=== PATIENT | female | born 1935 | race Caucasian/White ===

== ENCOUNTER 2024-02-02 09:18 | Day surgery (SDC) | payer OTHER, SELFPAY ==
[2024-02-02] VITALS (19 sets, daily range): BP systolic 89–163; BP diastolic 49–92
[2024-02-02] MEDS: NSS 259 ML IV (10:12)
[2024-02-02] MEDS: LOW STRENGTH ASPIRIN 324 MG PO (10:13)
[2024-02-02 12:04] LABS: ACT-LR - POC 263 Seconds (116-155)
[2024-02-02 12:16] LABS: ACT-LR - POC 395 Seconds (116-155)
[2024-02-02 12:41] LABS: ACT-LR - POC 263 Seconds (116-155)
[2024-02-02] MEDS: NSS 1000 IV (13:21)
--- NOTE | 2024-02-02 14:33 | PTCARENOTE ---
Pt was transferred to IVU on stretcher/monitor/O2 @ 2 LPM. Report to Verónica ARROYO. All personal effects with pt at this time
--- NOTE | 2024-02-02 15:12 | CONSULT.STRU ---
Consultation
-
Date/Time Consultation Requested: 02/02/2024 1230
Date/Time Consultation Performed: 02/02/2024 1300
Requesting Provider: Dr. Kimber Méndez
Performing Provider: LEESA Zhu
Reason for Consultation: Aortic stenosis/ TAVR evaluation
Patient History
Physicians
Family Physician: Dr. Christophe Acosta
Outpatient Food Safety Director: Dr. Yusef Spangler
Primary Food Safety Director: Dr. Yusef Spangler
History of Present Illness
Patient is a very pleasant 88yo female with known history aortic stenosis. Last year she underwent surgery for a rectovaginal fistula and was slow to recover. She is now ambulating independently with a walker and living with her son in an in-law
suite. She has noted increased fatigue and more mata over the last couple months. She has started using two pillows to prop up on for sleep. She denies PND, chest pain, palpitations. She does have a known history of atrial tachycardia. She has noted
occasional edema in her left ankle. She present today for cardiac cath as part of her evaluation for TAVR. Her most recent echocardiogram on 01/12/2024 was notable for AV PG/M.4/54.6, EF 55-60%. Today she underwent PCI of her RCA.
Reviewed the pathophysiology of aortic stenosis with the patient. Explained the treatment options of SAVR and TAVR. Explained the TAVR evaluation process including follow up BMP, CT TAVR scan, CT surgery consult and Heart Team discussion. Provided
with script for BMP next week, script and appointment for CT TAVR, Consult appointment with Dr. Middleton and a copy of the TAVR education booklet with contact information. Allowed for and answered questions.
Past Medical History
Past Medical History: Arrhythmias (paroxysmal atrial tachycardia), CAD, MATA, HTN, Hypercholesterolemia and Other (morbid obesity, spinal stenosis, h/o melanoma, arthritis, h/o recto-vaginal fistula, diverticular disease, osteoarthritis-should,
ankle, knees )
Past Surgical History
Past Surgical History: Abdominal (hernia repair), Hysterectomy, Orthopedic (bilateral TKR, carpel tunnel surgery), PCI/Stent (RCA 02/02/2024) and Other (Melanoma excision, lap sigmoidectomy, repair of recto-vaginal fistula, sinus surgery, cataract
surgery)
Dental History
Regular dental care every 6 months - Dr. Lexy Stewart
Family History
Mother: at Age (93)
Father: at Age (56) and Cause of (metastatic cancer)
Social History
Alcohol: None
Drug: None
Tobacco: Non-Smoker
Personal:
Living: With Family (Lives with son in an in-law suite)
Allergies
Allergy/AdvReac Type Severity Reaction Status Date / Time
albuterol Allergy Severe Pharmacy Verified 02/02/24 07:57
to Review
amitriptyline Allergy Severe Pharmacy Verified 02/02/24 07:57
to Review
gabapentin Allergy Severe Pharmacy Verified 02/02/24 07:57
to Review
Penicillins Allergy Intermediate Hives Verified 02/02/24 07:57
Home Medications
�Medication �Instructions �Recorded �Confirmed �Type
Saccharomyces boulardii 250 mg 250 mg PO BID 02/02/24 02/02/24 History
capsule
acetaminophen 500 mg tablet 1,000 mg PO Q6H PRN neuropathy 02/02/24 02/02/24 History
ascorbic acid (vitamin C) 500 mg 500 mg PO DAILY 02/02/24 02/02/24 History
tablet (Vitamin C)
calcium carbonate 600 mg-vitamin 1 tab PO DAILY 02/02/24 02/02/24 History
D3 5 mcg (200 unit) tablet
cranberry fruit concentrate 250 mg 250 mg PO TID 02/02/24 02/02/24 History
chewable tablet
diltiazem HCl 180 mg 180 mg PO DAILY 02/02/24 02/02/24 History
capsule,extended release 24 hr,
controlled
mecobalamin (vitamin B12) 500 mcg 500 mcg PO DAILY 02/02/24 02/02/24 History
chewable tablet
multivitamin 1 tab PO DAILY 02/02/24 02/02/24 History
olive leaf extract 250 mg capsule 250 mg PO DAILY 02/02/24 02/02/24 History
omega-3 964 mg-dha 257 mg-epa 643 1 cap PO DAILY 02/02/24 02/02/24 History
mg-fish oil 1.286 gram capsule
oregano oil 1,500 mg capsule 1,500 mg PO DAILY 02/02/24 02/02/24 History
psyllium husk 0.52 gram capsule 0.52 g PO DAILY 02/02/24 02/02/24 History
vibegron 75 mg tablet (Gemtesa) 75 mg PO DAILY 02/02/24 02/02/24 History
STS%
STS %: 13%
Review of Systems
-
History Source: Patient
General: Reports Fatigue
HEENT: Reports No Symptoms
Respiratory: Reports MATA and Other (2 pillow orthopnea over last few weeks); Denies PND
Cardiac: Reports Edema (occasional left leg, r/t prior TKR); Denies Chest Pain or Palpitations
Abdomen/GI: Denies Abdominal Pain, Nausea, Vomiting or Diarrhea
: Reports No Symptoms; Denies Urgency, Frequency or Hematuria
Musculoskeletal: Reports Edema (left ankle)
Skin: Denies No Symptoms
Neurological: Denies CVA, TIA, Headaches, Syncope or Dizzy
Vascular: Reports No Symptoms
Physical Exam
Vital Signs
Temp 97.6 F 02/02/24 14:31
Temp route: Oral 02/02/24 14:31
Pulse 61 02/02/24 14:31
Rhythm: Normal sinus rhythm 02/02/24 14:36
With- Left Bundle Branch Block 02/02/24 14:36
Resp Rate 18 02/02/24 14:31
Blood pressure 114/75 02/02/24 14:31
Blood pressure extremity used: Left upper arm 02/02/24 14:31
Position: Lying 02/02/24 14:31
MAP (cuff-Sylvie Monitor) 85 02/02/24 14:31
SaO2 99 02/02/24 14:36
Nasal Cannula flow liters per minute 2 02/02/24 14:36
Oxygen Mode of Delivery Room air 02/02/24 12:48
Can the patient verbally communicate their pain? Yes 02/02/24 14:36
Actual Weight 86.2 kg 02/02/24 07:53
Body Mass Index (BMI) 0.0 02/02/24 10:12
Labs
01/25/2024:
H/H: 14.1/40
[id number]
BUN/Creat: 23/0.91
GFR: 60
Diagnostic Studies
01/12/2024 Echocardiogram at [facility]:
Moderate LVH, EF 55-60%
Aortic Valve: peak velocity 4.88m/s. PG/M.4/54.6, mild AI
Mild TR
01/19/2024 EKG at [facility]:
SR with PACs and left BBB
Exam
General: Well Developed, Well Nourished, No Apparent Distress and Comfortable
HEENT: Moist Mucous Membranes
Neck: Trachea Midline
Respiratory: Clear; Negative Wheezes, Crackles or Rhonchi
Cardiac: S1/S2, Regular Rhythm and Murmur (Grade III/)
GI: Soft, Non Tender, Non Distended and Normal Bowel Sounds
Rectal: Deferred by Provider
Skin: Warm and Dry
Neuro: AO x 3
Extremities: Lower Level Edema (left ankle +1) and Pulses (+2 bilateral pedal pulses)
Lymph: No Lymphadenopathy
Psych: Calm
Assessment / Plan
-
Procedure Type:�Isolated AVR
PERIOPERATIVE OUTCOME ESTIMATE %
Operative Mortality 13%
Morbidity & Mortality 21.2%
Stroke 1.54%
Renal Failure 6.44%
Reoperation 4.54%
Prolonged Ventilation 14%
Deep Sternal Wound Infection 0.109%
Long Hospital Stay (>14 days) 13.3%
Short Hospital Stay (<6 days)* 13.8%
Severe Aortic stenosis:
��������������� Continue evaluation for TAVR
��������������� BMP 02/09/2024 at [facility]
��������������� CT TAVR scan 02/15/2024 0930 at
��������������� CT surgery consult with Dr. Middleton 02/15/2024
��������������� Heart team discussion at [facility]
Dental Clearance
Data Reviewed
-
EKG: Report Reviewed by me
Gas Plumbing Inspector: Discussed with Physician
Echo: Report Reviewed by me
Labs: Labs Reviewed by me
Old Records: Reviewed (Dr. Spangler office consult )
--- NOTE | 2024-02-02 15:35 | PTCARENOTE ---
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 patient is [place], has bialt hearing aids, wears glasses. patient on monitor NSR with LBBBC. VSS. patient is sleepy and stated, 'This is my nap
time'.
--- NOTE | 2024-02-02 15:42 | ITS.CL.CATH ---
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
Cardiac Catheterization
Procedure Report:
LEFT HEART CATHETERIZATION
Date of Procedure: February 02, 2024
Procedures performed:
1: Coronary angiography
2: Left ventricular hemodynamic assessment
3: Percutaneous coronary invention of the right coronary artery with placement of a 4.0 x 18 millimeter Xience drug-eluting stent postdilated with a 5.0 mm balloon inflated to 12 juliann.
Primary Care Physician: Dr. Christophe Mejia
Primary Sewing Line Baler: Dr. Yusef Spangler
INDICATION: The patient is a 88-year-old woman with a complex past medical history including obesity, hypertension, and mobility issues related to spinal stenosis. She has been followed by Dr. Spangler with severe aortic stenosis and was previously
felt to be a poor candidate for any intervention. She has been recovering from a rectovaginal fistula surgery last year and has become stronger now ambulating independently with a walker. She is referred for TAVR evaluation with mean gradient of
54 mmHg across her aortic valve by recent echo with preserved LV systolic function. The patient also has paroxysmal atrial tachycardia with no clear documented atrial fibrillation. Of note she has a left bundle branch block.
ACCESS: The patient was prepped and draped in usual sterile fashion. A 6 [place]an sheath was placed in the right radial artery using the Seldinger over the wire technique.
HEMODYNAMIC FINDINGS (mmHg):
LV(s/d,EDP): 203/16, 27
Ao(s/d,m): 123/72, 89
Mean gradient on pullback: 59 mmHg
ANGIOGRAPHIC FINDINGS:
Single-plane Left Ventriculography in PRUITT Projection: Not done. Preserved LV ejection fraction visually estimated at 55 to 60% on recent echo January 12, 2024.
Coronary Angiography:
Dominance: Right
Left Main: Medium caliber, normal.
Left Anterior Descending: The left anterior descending artery is a relatively large caliber vessel that is widely patent with no flow-limiting disease. The LAD gives rise to 2 medium caliber vessels that have diffuse moderate luminal irregularities
with normal flow and no focal obstructive disease. The second diagonal has a smooth mid 40% stenosis prior to bifurcating into 2 relatively large branches.
Left Circumflex: The left circumflex is a relatively small nondominant vessel that gives rise to 1 medium caliber obtuse marginal branch that is widely patent.
Right Coronary: The right coronary artery is a huge dominant vessel that gives rise to a large caliber posterior descending artery and posterior left ventricular branch system. There is a proximal ulcerated 70% stenosis. The remainder of the
vessel has only mild luminal irregularities with normal flow.
Percutaneous Coronary Intervention (PCI): In light of the above angiographic findings and the anticipated transcatheter aortic valve intervention, I elected to perform PCI. This was a very large vessel supplying a large territory and I did not feel
with her advanced age and comorbidities she was a reasonable surgical candidate. The patient was pretreated with aspirin. Unfractionated heparin was given. A loading dose of clopidogrel 600 mg was given on the table at the end of the procedure.
A 6 [place] JR4 guiding catheter was used to engage the right coronary artery. A Hi-Torque floppy wire was easily advanced across the lesion. Predilation was performed with a 3.0 mm diameter balloon. Next a 4.0 x 18 mm Xience drug-eluting stent
was deployed. Attempts to pass a 5.5 mm noncompliant balloon to post dilate were unsuccessful despite facilitating delivery with a 6 [place]an Guideliner. Ultimately a 5 mm compliant balloon was used to post dilate the stent at 12 juliann. This was done
in a distal to proximal fashion taking care to stay within the stented margins.
FINAL RESULT: 0% in-stent residual stenosis with a good angiographic result and MARIO-3 flow in all vessels
Fluoroscopy Time (min): 14
Radiation Dose (mGy): 870
DAP (Gy.cm2): 77
Closure device: None. A TR band was applied for hemostasis at the right wrist.
Complications: None.
ASSESSMENT:
1: Successful PCI of the right coronary artery with placement of drug-eluting stent as described above.
2: Severe aortic valvular stenosis
CONCLUSIONS and RECOMMENDATIONS:
1: Routine post drug-eluting stent medical therapy and monitoring with dual antiplatelet therapy and aspirin daily indefinitely.
2: Proceed with TAVR evaluation.
3: Of note, during the procedure the patient did have short episodes of atrial arrhythmia followed by relative bradycardia. 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
consideration of pacer placement. She has no clear clinical symptoms for pacer placement at this point.
Kimber Méndez M.D.
Copy to: Dr. Christophe Mejia
--- NOTE | 2024-02-02 15:46 | CM ---
CM following for DC planning needs.
Met w/ patient at bedside to complete initial assessment.
Pt. resides alone in an apartment-in law suite on son's property. Functionally, patient is indep. at baseline w/ ADLs and mobility using a RW.
Pt. has Rx plan and uses [facility] in [place] for prescription needs.
Anticipated DC plan is for home, no needs.
CM to follow.
[2024-02-02] MEDS: LIPITOR 10 MG PO (17:40)
--- NOTE | 2024-02-02 21:53 | PTCARENOTE ---
pt pleasant and cooperative. requesting purewick to be removed. pt assisted oob to bedside commode with assist of one. voided 400 ml clear yellow urine without difficulty. pt back to bed. denies pain or discomfort. mild sob with exertion. o2 sat=93%
on room air. right radial dressing dry and intact. pt in no acute distress.
[2024-02-03 03:22] VITALS: BP 135/71
[2024-02-03 04:08] LABS: Hematocrit 36.2 % (37.0-47.0); Hemoglobin 13.5 g/dL (12.0-16.0); Mean Corp Hgb Conc. 37.3 g/dL (33.0-37.0); Mean Corpuscular Hgb 33.8 pg (27.0-31.0); Mean Corpuscular Volume 90.5 fL (81.0-99.0); Mean Platelet Volume 11.1 fL (7.4-10.4); Platelet Count 158 10^3/uL (130-400); Red Cell Dist. Width 12.7 % (11.5-14.5); White Blood Cell Count 9.9 10^3/uL (4.8-10.8)
[2024-02-03 04:34] LABS: Blood Urea Nitrogen 21 mg/dl (7-17); Calcium 9.3 mg/dl (8.4-10.2); Carbon Dioxide 24 mmol/L (22-30); Chloride 104 mmol/L (98-107); Estimated Creatinine Clearance 61 ml/min; Glucose 111 mg/dl (70-99); HDL Cholesterol 30 mg/dl; LDL Cholesterol, Calculated 90 mg/dl; Potassium 4.9 mmol/L (3.5-5.1); Sodium 139 mmol/L (135-145); Total Cholesterol 164 mg/dl (50-199); Triglyceride 224 mg/dl (10-149); Very Low Density Lipoprotein 44 mg/dl (0-30); eGFR > 60.00
[2024-02-03 07:40] VITALS: BP 115/85
--- NOTE | 2024-02-03 07:44 | W.PN.CARDCBS ---
Addendum entered and electronically signed by Shane Ferrari DO 02/03/24 10:21:
I saw and examined the patient.
The Manager [employer]'s note was reviewed and I agree with the note.
Comment:
Plan:
Stable post PCI
Cont DAPT
Cont outpt TAVR work up
Stable for d/c home.
Original Note:
Today's Communication / Plan
-
post PCI RCA
continue outpt w/u TAVR
home today
Impression / Plan
-
Primary Care Physician: Dr. Christophe Mejia
Primary Seed Laboratory Assistant: Dr. Yusef Spangler
88-year-old woman with a complex past medical history including obesity, hypertension, and mobility issues related to spinal stenosis. She has been followed by Dr. Spangler with severe aortic stenosis and was previously felt to be a poor candidate for
any intervention. She has been recovering from a rectovaginal fistula surgery last year and has become stronger now ambulating independently with a walker. She is referred for TAVR evaluation with mean gradient of 54 mmHg across her aortic valve
by recent echo with preserved LV systolic function. The patient also has paroxysmal atrial tachycardia with no clear documented atrial fibrillation. Of note she has a left bundle branch block.
Impression:
Severe p/m 95/55mmHg
CAD post PCI ostial RCAx1 ABHINAV 02/02/24
PAT/PAC's
Tachy-Fabio syndrome
HTN
HLD
LVH
spinal stenosis
h/o rectovaginal fistula surgery
obesity
02/02/24 [facility]:
1: Coronary angiography
2: Left ventricular hemodynamic assessment
3: Percutaneous coronary invention of the right coronary artery with placement of a 4.0 x 18 millimeter Xience drug-eluting stent postdilated with a 5.0 mm balloon inflated to 12 juliann.
Plan:
post PCI RCA, feels good
Rad site stable
tele SB with PAC's, PVC's and LBBB
DAPT ASA/Plavix
LDL 90 new start to atorvastatin 10mg
continue diltiazem for PAT, observed during procedure
continue outpt w/u for TAVR, with tachy-fabio syndrome may require device prior to TAVR
Will add PPI with DAPT and age
Activity restrictions reviewed
cardiac rehab c/s
f/u Dr. Spangler in 2-4 weeks
home today
.
Progress Note - Seed Laboratory Assistant
Subjective
Date of Service: February 03, 2024
no cp, sob
Objective
Labs:
02/03/24 03:20
02/03/24 03:20
Labs
Hgb 13.5 g/dL (12.0-16.0) 02/03/24 03:20
Hct 36.2 % (37.0-47.0) L 02/03/24 03:20
Plt Count 158 10^3/uL (130-400) 02/03/24 03:20
Sodium 139 mmol/L (135-145) 02/03/24 03:20
Potassium 4.9 mmol/L (3.5-5.1) 02/03/24 03:20
BUN 21 mg/dl (7-17) H 02/03/24 03:20
Creatinine 0.6 mg/dL (0.6-1.0) 02/03/24 03:20
Glucose 111 mg/dl (70-99) H 02/03/24 03:20
Vital Signs and I&O:
Vital Signs
Temp Pulse Resp BP Pulse Ox
98.7 F 60 20 106/62 98
02/03/24 07:38 02/03/24 00:00 02/03/24 07:38 02/02/24 22:38 02/03/24 07:38
Vital Signs
Temp Pulse Resp BP Pulse Ox
98.7 F 60 20 106/62 98
02/03/24 07:38 02/03/24 00:00 02/03/24 07:38 02/02/24 22:38 02/03/24 07:38
Intake & Output
02/01/24 02/02/24 02/03/24 02/04/24
06:59 06:59 06:59 06:59
Intake Total 1939
Output Total 1699
Balance 240 / 240
Physical Exam
Physical Exam
NAD, AOX3
S1, S2, RRR, III/ OLIVIA RSB 2ICS
CTAB, non labored, no wheeze
SNTND bsx4
R rad site c/d/i no HT, good pulse
[2024-02-03] MEDS: LOW STRENGTH ASPIRIN 81 MG PO (08:57)
[2024-02-03] MEDS: CARDIZEM CD 180 MG PO (08:57)
[2024-02-03] MEDS: PLAVIX 75 MG PO (08:57)
[2024-02-03] MEDS: PROTONIX 40 MG PO (08:57)
[2024-02-03 10:50] VITALS: BP 124/62
[2024-02-03 10:51] VITALS: BP 124/62
--- NOTE | 2024-02-03 10:57 | PTCARENOTE ---
patient called son and son will be here at 1130. patient requested to get dressed, INT D/C'd, telemetry D/C'd, personal belongings packed and will send home with patient. will give D/C instructions when son comes in.
--- NOTE | 2024-02-03 11:06 | W.DS.TRANS ---
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
-
Discharge Instructions:
Discharge Diagnosis/Procedures Angioplasty with stent to RCA
Diet Low Cholesterol
Driving Restrictions No driving for 24 hours
Blood Work PLEASE HAVE BLOOD WORK(BMP) DRAWN ON 02/09/2024.
THIS DOES NOT NEED TO BE FASTING. PLEASE HAVE
RESULTS FAXED TO [phone].
Others Tests A CT SCAN HAS BEEN SCHEDULED FOR YOU AT
[facility] ON 02/15/2024 AT 9:30AM.
PLEASE DO NOT EAT OR DRINK ANYTHING FOR 3 HOURS
PRIOR. PLEASE BRING A COMPLETE LIST OF YOUR
MEDICATIONS WITH YOU TO YOUR VISIT.
Other Services Cardiac Rehab
Instructions:
Stand-Alone Forms: DC Instructions- Cath/EP Lab
Changes to Home Medications: Yes
Discharge Medications:
DC Medications w/original date entered in [employer]
Saccharomyces boulardii 250 mg capsule 250 mg PO BID 02/02/24
acetaminophen 500 mg tablet 1,000 mg PO Q6H PRN neuropathy 02/02/24
ascorbic acid (vitamin C) 500 mg tablet (Vitamin C) 500 mg PO DAILY 02/02/24
calcium carbonate 600 mg-vitamin D3 5 mcg (200 unit) tablet 1 tab PO DAILY 02/02/24
cranberry fruit concentrate 250 mg chewable tablet 250 mg PO TID 02/02/24
diltiazem HCl 180 mg capsule,extended release 24 hr, controlled 180 mg PO DAILY 02/02/24
mecobalamin (vitamin B12) 500 mcg chewable tablet 500 mcg PO DAILY 02/02/24
multivitamin 1 tab PO DAILY 02/02/24
olive leaf extract 250 mg capsule 250 mg PO DAILY 02/02/24
omega-3 964 mg-dha 257 mg-epa 643 mg-fish oil 1.286 gram capsule 1 cap PO DAILY 02/02/24
oregano oil 1,500 mg capsule 1,500 mg PO DAILY 02/02/24
psyllium husk 0.52 gram capsule 0.52 g PO DAILY 02/02/24
vibegron 75 mg tablet (Gemtesa) 75 mg PO DAILY 02/02/24
aspirin 81 mg chewable tablet (Children's Aspirin) 81 mg PO DAILY #1 tab 02/03/24
atorvastatin 10 mg tablet 10 mg PO QPM #90 tabs 02/03/24
clopidogrel 75 mg tablet 75 mg PO DAILY #90 tabs 02/03/24
pantoprazole 40 mg tablet,delayed release 40 mg PO DAILY #90 tabs 02/03/24
Home Medication Changes
new to plavix, asa, protonix, and atorvastatin
Pending Results: No
--- NOTE | 2024-02-03 11:47 | PTCARENOTE ---
D/C instructions given to patient, verbalizes understanding. personal belongings packed and sent with patient. D/C to home via wc accompanied by vol. services.
== END 2024-02-03 11:49 | disposition home or self-care (01) ==
LOC: CATH 09:18
PROVIDERS: Nurse Practitioner; ATTENDING PHYSICIAN Internal Medicine Interventional Cardiology; OTHER PHYSICIAN Internal Medicine Cardiovascular Disease; PRIMARYCARE PHYSICIAN Family Medicine
DX: I25.10 Atherosclerotic heart disease of native coronary artery without angina pectoris (principal); I35.0 Nonrheumatic aortic (valve) stenosis; Z95.5 Presence of coronary angioplasty implant and graft; I10 Essential (primary) hypertension; E78.00 Pure hypercholesterolemia, unspecified; I47.19 Other supraventricular tachycardia; I44.7 Left bundle-branch block, unspecified; R06.09 Other forms of dyspnea; Z85.820 Personal history of malignant melanoma of skin; Z79.82 Long term (current) use of aspirin; Z79.02 Long term (current) use of antithrombotics/antiplatelets
CPT/HCPCS: C1725; C1887; C1769; C1874; C1894; 80048; 80061; 85027; 85347; 93005; 93458; C9600; Q9967

== ENCOUNTER 2024-02-13 19:36 | Inpatient (IN) | payer OTHER, SELFPAY ==
[2024-02-13] VITALS (10 sets, daily range): BP systolic 110–163; BP diastolic 43–106; BMI 35.9
--- NOTE | 2024-02-13 14:09 | ED.GENMED ---
History of Present Illness
General
Chief Complaint: Breathing Problem
Time Seen by Provider: 02/13/24 14:08
Travel History
Have you had any contact with someone who has COVID-19?: No
Do you have any symptoms of coronavirus? Fever > 100 degrees, chills, cough, shortness of breath, sore throat, loss of taste or smell, muscle aches, or headache?: No
Course
Orders/Labs/Results
Orders:
Orders
02/13/24 12:51
Electrocardiogram (*1) Urgent
Reason for Study: Chest Pain
EKG- Treatment ONCE
Vital Signs
Initial and Last Documented VS:
Initial Vital Signs
Temp Pulse Resp BP Pulse Ox
98.2 F 71 22 126/90 96
02/13/24 12:52 02/13/24 12:52 02/13/24 12:52 02/13/24 12:52 02/13/24 12:52
Last Documented Vital Signs
Temp Pulse Resp BP Pulse Ox
98.2 F 71 22 126/90 96
02/13/24 12:52 02/13/24 12:52 02/13/24 12:52 02/13/24 12:52 02/13/24 12:52
*Pulse Oximetry
Patient hypoxic: no
*EKG
Interpreted by ED Provider?: Yes
Interpretation: abnormal
Comparison EKG: no changes
Heart Rate: 69
Rate: normal
Rhythm: sinus
[place]: normal axis
Interval: normal interval
QRS Pattern: left bundle branch block
Ischemia: non-specific ST changes
ED Attending Note
-
Portions of this chart may have been created with voice recognition software.� Occasional wrong word or��sound alike� substitutions may have occurred due to the inherent limitations of voice recognition software.
Discharge Plan
Departure
Prescriptions:
No Action
multivitamin Tablet
1 tab PO DAILY
calcium carbonate-vitamin D3 600 mg-5 mcg (200 unit) Tablet
1 tab PO DAILY
ascorbic acid (vitamin C) [Vitamin C] 500 mg Tablet
500 mg PO DAILY
diltiazem HCl 180 mg Capsule,Ext.Rel 24h Degradable
180 mg PO DAILY
olive leaf extract 250 mg Capsule
250 mg PO DAILY
cranberry fruit concentrate 250 mg Tablet,Chewable
250 mg PO TID
mecobalamin (vitamin B12) 500 mcg Tablet,Chewable
500 mcg PO DAILY
omega 6-nnk-tey-fish oil [phone] mg Capsule
1 cap PO DAILY
psyllium husk 0.52 gram Capsule
0.52 g PO DAILY
Saccharomyces boulardii 250 mg Capsule
250 mg PO BID
oregano oil 1,500 mg Capsule
1,500 mg PO DAILY
Gemtesa 75 mg Tablet
75 mg PO DAILY
acetaminophen 500 mg Tablet
1,000 mg PO Q6H PRN (Reason: neuropathy)
atorvastatin 10 mg Tablet
10 mg PO QPM Qty: 90 5RF
clopidogrel 75 mg Tablet
75 mg PO DAILY Qty: 90 5RF
pantoprazole 40 mg Tablet,Delayed Release (Dr/Ec)
40 mg PO DAILY Qty: 90 5RF
aspirin [Children's Aspirin] 81 mg Tablet,Chewable
81 mg PO DAILY Qty: 1 0RF
Discharge Date and Time
Print Language: TURKMEN
--- NOTE | 2024-02-13 15:05 | ED.GENMED ---
History of Present Illness
<LEESA Tineo - Last Filed: 02/13/24 17:56>
General
Chief Complaint: Breathing Problem
Source: patient
Exam Limitations: none
Time Seen by Provider: 02/13/24 14:08
Nursing documentation reviewed up to this point in time: agreed with
Travel History
Have you had any contact with someone who has COVID-19?: No
Do you have any symptoms of coronavirus? Fever > 100 degrees, chills, cough, shortness of breath, sore throat, loss of taste or smell, muscle aches, or headache?: No
History of Present Illness
History of Present Illness:
88-year-old female presents to the ER with complaints of shortness of breath. Patient reports for the past several days she has noted shortness of breath worse in the morning and also with exertion. She denies any associated chest pain. She
recently was admitted 11 d ago February 01 to February 02 for a cadiac cath and had a stent of the ostial right coronary artery. She has a known lbbb. Patient has a history of severe aortic stenosis and tells me she is supposed to have aortic valve
replacement. She has a history of paroxysmal atrial tachycardia tachybradycardia syndrome hypertension hyperlipidemia LVH by this rectovaginal fistula surgery.
cardiology group is [facility]
Review of Systems
<LEESA Tineo - Last Filed: 02/13/24 17:56>
Review of Systems
Allergies reviewed?: Yes
Other source history: family
All Other Systems: ROS reviewed and negative except as documented in HPI and ROS
Constitutional: Reports no symptoms; Denies fever, fatigue or chills
Respiratory: Reports trouble breathing; Denies cough or hemoptysis
Cardiac: Reports no symptoms
ABD/GI: Reports no symptoms
: Reports no symptoms
Musculoskeletal: Reports no symptoms
Skin: Reports no symptoms
Neurological: Reports no symptoms
Psychiatric: Reports no symptoms
Phy Exam
<LEESA Tineo - Last Filed: 02/13/24 17:56>
General Physical Exam
General Presentation: no apparent distress
General age: appears stated age
General Skin: dry
General Habitus: elderly
General Hydration: appears well hydrated
Cardiovascular Exam
Cardiovascular Exam: regular rate/rhythm and systolic murmur
Pulmonary Exam
Pulmonary Exam: lungs clear and no respiratory distress
Neurological Exam
Neurological Exam: alert and oriented x3
Maria Alejandra Coma Scale
Eye Opening: Spontaneous
Verbal Response: Oriented
Motor Response: Obeys Commands
GCS Total Score: 15
Musculoskeletal Exam
Musculoskeletal Exam: other (Trace swelling to ankles and feet slight worse on the left)
Skin Exam
Skin Exam: normal color and warm/dry
Psychiatric Exam
Psychiatric Exam: normal mood/affect
<Litzy Qureshi MD - Last Filed: 02/13/24 16:48>
Maria Alejandra Coma Scale
GCS Total Score: 15
Scores
<LEESA Tineo - Last Filed: 02/13/24 17:56>
Heart Failure Risk
Heart Failure Risk Score: Not Applicable
Course
<LEESA Tineo - Last Filed: 02/13/24 17:56>
Orders/Labs/Results
Orders:
Orders
02/13/24 12:51
Electrocardiogram (*1) Urgent
Reason for Study: Chest Pain
EKG- Treatment ONCE
02/13/24 15:09
Cardiac Monitoring- Treatment ONCE
IV Insert/Care/Rem.- Treatment PRN
02/13/24 15:10
Chest [CR Chest - 2 Views ] Urgent
Comment:
Reason For Exam: sob
02/13/24 15:14
Complete Blood Count/With Diff Urgent
Comprehensive Metabolic Panel Urgent
NT-proBNP Urgent
Troponin I Urgent
Abnormal Lab Results
02/13/24
15:14
RBC 3.99 L 10^6/uL
(4.20-5.40)
Hct 36.8 L %
(37.0-47.0)
MCH 33.8 H pg
(27.0-31.0)
MPV 10.9 H fL
(7.4-10.4)
Abs Immat Gran (auto) 0.1 H 10^3/uL
(0-0.05)
Absolute Monos (auto) 1.2 H 10^3/uL
(0.1-0.6)
Immature Gran % 1.1 H %
(0-0.5)
Lymphocytes % 15.8 L %
(20.5-51.1)
Monocytes % 12.4 H %
(1.7-9.3)
BUN 22 H mg/dl
(7-17)
Glucose 104 H mg/dl
(70-99)
Troponin I 0.042 H* ng/ml
02/13/24 15:14
02/13/24 15:14
Vital Signs
Initial and Last Documented VS:
Initial Vital Signs
Temp Pulse Resp BP Pulse Ox
98.2 F 71 22 126/90 96
02/13/24 12:52 02/13/24 12:52 02/13/24 12:52 02/13/24 12:52 02/13/24 12:52
Last Documented Vital Signs
Temp Pulse Resp BP Pulse Ox
98.2 F 60 20 141/93 96
02/13/24 12:52 02/13/24 15:15 02/13/24 15:15 02/13/24 15:00 02/13/24 15:15
Body Shop Manager consulted with Physician
Body Shop Manager consulted with physician?: Yes
Name of Physician Consulted: Kiera
<Litzy Qureshi MD - Last Filed: 02/13/24 16:48>
Orders/Labs/Results
Orders:
Orders
02/13/24 12:51
Electrocardiogram (*1) Urgent
Reason for Study: Chest Pain
EKG- Treatment ONCE
02/13/24 15:09
Cardiac Monitoring- Treatment ONCE
IV Insert/Care/Rem.- Treatment PRN
02/13/24 15:10
Chest [CR Chest - 2 Views ] Urgent
Comment:
Reason For Exam: sob
02/13/24 15:14
Complete Blood Count/With Diff Urgent
Comprehensive Metabolic Panel Urgent
NT-proBNP Urgent
Troponin I Urgent
Abnormal Lab Results
02/13/24
15:14
RBC 3.99 L 10^6/uL
(4.20-5.40)
Hct 36.8 L %
(37.0-47.0)
MCH 33.8 H pg
(27.0-31.0)
MPV 10.9 H fL
(7.4-10.4)
Abs Immat Gran (auto) 0.1 H 10^3/uL
(0-0.05)
Absolute Monos (auto) 1.2 H 10^3/uL
(0.1-0.6)
Immature Gran % 1.1 H %
(0-0.5)
Lymphocytes % 15.8 L %
(20.5-51.1)
Monocytes % 12.4 H %
(1.7-9.3)
BUN 22 H mg/dl
(7-17)
Glucose 104 H mg/dl
(70-99)
Troponin I 0.042 H* ng/ml
02/13/24 15:14
02/13/24 15:14
Vital Signs
Initial and Last Documented VS:
Initial Vital Signs
Temp Pulse Resp BP Pulse Ox
98.2 F 71 22 126/90 96
02/13/24 12:52 02/13/24 12:52 02/13/24 12:52 02/13/24 12:52 02/13/24 12:52
Last Documented Vital Signs
Temp Pulse Resp BP Pulse Ox
98.2 F 60 20 141/93 96
02/13/24 12:52 02/13/24 15:15 02/13/24 15:15 02/13/24 15:00 02/13/24 15:15
<LEESA Tineo - Last Filed: 02/13/24 17:56>
MDM/Problems Addressed
Differential Diagnosis Includes:
not limited to : CHF
MDM/Problems Addressed:
Patient is an 88-year-old female with a history of hypertension heart murmur, severe aortic stenosis with recent stent to RCA on 11 days ago presents with shortness of breath since this morning not associate with chest pain. Patient does have a
history left bundle branch block. She denies any recent fever or chills. Patient's cardiac troponin is slightly elevated at 0.042(no prior comparison however no chest pain and likely from recent cardiac cath/stent. Pt is short of breath. She has
had a weight gain BNP is 1700. Patient was evaluated by ED physician. Patient was also evaluated by Dr. Abbott [facility] which is on-call for [facility] cardiology group.
Dr. Abbott does recommend admission for diuresis IV Lasix ordered
Chronic conditions affecting care:
chf aortic stenosis
<LEESA Tineo - Last Filed: 02/13/24 17:56>
*Radiology
Radiology exam reviewed: radiology read reviewed
*Pulse Oximetry
Patient hypoxic: no
*EKG
Interpretation: normal
Comparison EKG: no comparison EKG present
Heart Rate: 69
Rate: normal
Rhythm: sinus
QRS Pattern: left bundle branch block (unchanged )
Ischemia: no ischemia
*Critical Care Note
Total Time (30-74mins, 75-104mins- exclusive of procedures): Not Applicable
ED Attending Note
<LEESA Tineo - Last Filed: 02/13/24 17:56>
-
Portions of this chart may have been created with voice recognition software.� Occasional wrong word or��sound alike� substitutions may have occurred due to the inherent limitations of voice recognition software.
<Litzy Qureshi MD - Last Filed: 02/13/24 16:48>
ED Attending Note
Patient seen and examined by attending physician: Yes
I performed the substantive portion of visit, reviewed & personally made and approve the management plan that is documented in note by myself or GERTRUDE.: Yes
ED Attending Note:
This patient is an 88-year-old female who has severe aortic stenosis, due for TAVR, however in preop evaluation was noted to have coronary artery disease requiring stent placement 11 days ago. She normally has mild dyspnea on exertion but notes
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 She denies fever, chills, cough, sore throat, rhinorrhea, abdominal pain,
chest pain or pressure, or other complaints. On exam, patient in no distress. Loud systolic murmur noted heart regular rate and rhythm. Decreased breath sounds noted bilaterally without obvious rales rhonchi or wheezing noted, no respiratory
distress, speaks in full sentences easily. Dyspnea may be related to severe valve disease however worry about mild heart failure given orthopnea, PND, leg swelling, weight gain of approximately 3 kg in the last 10 days. Doubt ACS, suspect troponin
elevation related to recent cath. We will consult with cardiology.
Discharge Plan
Departure
Patient Disposition: Admit
Date of Disposition: 02/13/24
Time of Disposition: 17:55
Admit to: Telemetry
Admit to doctor: hospitalist
Presentation/result/management discussed w/ accepting MD/DO: Hospitalist
Patient with high blood pressure during this ER visit?: Yes
Condition: Fair
Covid-19: Not Applicable
Discharge Problem:
Congestive heart failure (CHF)
Prescriptions:
No Action
multivitamin Tablet
1 tab PO DAILY
calcium carbonate-vitamin D3 600 mg-5 mcg (200 unit) Tablet
1 tab PO DAILY
ascorbic acid (vitamin C) [Vitamin C] 500 mg Tablet
500 mg PO DAILY
diltiazem HCl 180 mg Capsule,Ext.Rel 24h Degradable
180 mg PO DAILY
olive leaf extract 250 mg Capsule
250 mg PO DAILY
cranberry fruit concentrate 250 mg Tablet,Chewable
250 mg PO TID
mecobalamin (vitamin B12) 500 mcg Tablet,Chewable
500 mcg PO DAILY
omega 5-smw-sou-fish oil [id number] mg Capsule
1 cap PO DAILY
psyllium husk 0.52 gram Capsule
0.52 g PO DAILY
Saccharomyces boulardii 250 mg Capsule
250 mg PO BID
Gemtesa 75 mg Tablet
75 mg PO DAILY
acetaminophen 500 mg Tablet
1,000 mg PO Q6H PRN (Reason: mild pain)
atorvastatin 10 mg Tablet
10 mg PO QPM Qty: 90 5RF
clopidogrel 75 mg Tablet
75 mg PO DAILY Qty: 90 5RF
pantoprazole 40 mg Tablet,Delayed Release (Dr/Ec)
40 mg PO DAILY Qty: 90 5RF
aspirin [Children's Aspirin] 81 mg Tablet,Chewable
81 mg PO DAILY Qty: 1 0RF
Referrals:
Christophe Mejia, [Family Provider] -
Interventions
Interventions:
*Risk Screen - Suicide Last Done: 02/13/24 14:39
*General Assessment Last Done: 02/13/24 14:39
*Neglect/Abuse Screening Last Done: 02/13/24 14:39
ED- Fall Risk Assessment Last Done: 02/13/24 15:17
*ED COVID-19 Vaccine History Last Done: 02/13/24 15:17
ED- Pulmonary Assessment Last Done: 02/13/24 14:39
ED- Cardiac Assessment Last Done: 02/13/24 14:39
Discharge Date and Time
Print Language: [id number]
[2024-02-13 15:21] LABS: % Basophils 0.3 % (0-2); % Eosinophils 0.9 % (0-6); % Immature Granulocytes 1.1 % (0-0.5); % Lymphocytes 15.8 % (20.5-51.1); % Monocytes 12.4 % (1.7-9.3); % Neutrophils 69.5 % (42.2-75.2); Absolute Eosinophils 0.1 10^3/uL (0-0.7); Absolute Immature Granulocytes 0.1 10^3/uL (0-0.05); Absolute Lymphocytes 1.5 10^3/uL (1.2-3.4); Absolute Monocytes 1.2 10^3/uL (0.1-0.6); Absolute Neutrophils 6.4 10^3/uL (1.4-6.5); Hematocrit 36.8 % (37.0-47.0); Hemoglobin 13.5 g/dL (12.0-16.0); Mean Corp Hgb Conc. 36.7 g/dL (33.0-37.0); Mean Corpuscular Hgb 33.8 pg (27.0-31.0); Mean Corpuscular Volume 92.2 fL (81.0-99.0); Mean Platelet Volume 10.9 fL (7.4-10.4); Nucleated Red Blood Cells % 0 %; Platelet Count 169 10^3/uL (130-400); Red Blood Cell Count 3.99 10^6/uL (4.20-5.40); Red Cell Dist. Width 13.1 % (11.5-14.5); White Blood Cell Count 9.3 10^3/uL (4.8-10.8)
[2024-02-13 15:32] LABS: ALT (SGPT) 19 U/L (0-35); AST (SGOT) 28 U/L (14-36); Albumin 4.3 g/dl (3.5-5.0); Alkaline Phosphatase 69 U/L (38-126); Blood Urea Nitrogen 22 mg/dl (7-17); Calcium 9.4 mg/dl (8.4-10.2); Carbon Dioxide 26 mmol/L (22-30); Chloride 104 mmol/L (98-107); Estimated Creatinine Clearance 56 ml/min; Glucose 104 mg/dl (70-99); Potassium 4.6 mmol/L (3.5-5.1); Sodium 139 mmol/L (135-145); Total Bilirubin 0.5 mg/dl (0.2-1.3); Total Protein 7.5 g/dl (6.3-8.2); eGFR > 60.00
[2024-02-13 15:47] LABS: NT-proBNP 1700 pg/ml; Troponin I 0.042 ng/ml
--- NOTE | 2024-02-13 17:59 | CON.CAR ---
Consultation
Consultation Request
Date/Time Consultation Requested: 02/12/23 5:00pm
Date/Time Consultation Performed: 02/12/23 5:30pm
Requesting Provider: NUNO Irwin
Performing Provider: Tommie Abbott MD
Reason for Consultation: sob
Medical History
-
Chief Complaint: shortness of breath
History of Present Illness:
88-year-old female with past medical history of severe aortic stenosis, coronary artery status post RCA PCI 02/02/2024, spinal stenosis, hypertension, left bundle branch block, hyperlipidemia, and diverticular disease presents to [facility]
with shortness of breath. She states she has baseline shortness of breath and over the past several weeks she has noticed increased dyspnea on exertion and last night she had marked orthopnea where she was unable to lie flat. She feels bloated and
has gained 5 to 6 pounds. She denies any chest tightness or syncope. Her energy is poor. She walks with a walker and her breathing has significantly worsened. She has no falls. She has no bleeding. She has been compliant with her medication.
She does not take diuretics or Lasix. She follows with [facility] cardiology Dr. Spangler. She has no palpitations or syncope.
Past Medical History
Past Medical History: Other (Severe aortic stenosis, coronary status post RCA stent, paroxysmal atrial tachycardia, left bundle branch block, hypertension, hyperlipidemia, morbid obesity, spinal stenosis, diverticular disease, osteoarthritis)
Past Surgical History: Other (Lap sigmoidectomy, repair of rectovaginal fistula)
Social History
Tobacco: Non-Smoker
Alcohol: None
Drug: None
Living: With Family
Employment: Retired
Family History
Family History: Hypertension
Allergies / Home Medications
Allergy/AdvReac Type Severity Reaction Status Date / Time
albuterol Allergy Severe Pharmacy Verified 02/13/24 12:52
to Review
amitriptyline Allergy Severe Pharmacy Verified 02/13/24 12:52
to Review
gabapentin Allergy Severe Pharmacy Verified 02/13/24 12:52
to Review
Penicillins Allergy Intermediate Hives Verified 02/13/24 12:52
�Medication �Instructions �Recorded �Confirmed �Type
Saccharomyces boulardii 250 mg 250 mg PO BID 02/02/24 02/13/24 History
capsule
acetaminophen 500 mg tablet 1,000 mg PO Q6H PRN mild pain 02/02/24 02/13/24 History
ascorbic acid (vitamin C) 500 mg 500 mg PO DAILY 02/02/24 02/13/24 History
tablet (Vitamin C)
calcium carbonate 600 mg-vitamin 1 tab PO DAILY 02/02/24 02/13/24 History
D3 5 mcg (200 unit) tablet
cranberry fruit concentrate 250 mg 250 mg PO TID 02/02/24 02/13/24 History
chewable tablet
diltiazem HCl 180 mg 180 mg PO DAILY 02/02/24 02/13/24 History
capsule,extended release 24 hr,
controlled
mecobalamin (vitamin B12) 500 mcg 500 mcg PO DAILY 02/02/24 02/13/24 History
chewable tablet
multivitamin 1 tab PO DAILY 02/02/24 02/13/24 History
olive leaf extract 250 mg capsule 250 mg PO DAILY 02/02/24 02/13/24 History
omega-3 964 mg-dha 257 mg-epa 643 1 cap PO DAILY 02/02/24 02/13/24 History
mg-fish oil 1.286 gram capsule
psyllium husk 0.52 gram capsule 0.52 g PO DAILY 02/02/24 02/13/24 History
vibegron 75 mg tablet (Gemtesa) 75 mg PO DAILY 02/02/24 02/13/24 History
aspirin 81 mg chewable tablet 81 mg PO DAILY #1 tab 02/03/24 02/13/24 Rx
(Children's Aspirin)
atorvastatin 10 mg tablet 10 mg PO QPM #90 tabs 02/03/24 02/13/24 Rx
clopidogrel 75 mg tablet 75 mg PO DAILY #90 tabs 02/03/24 02/13/24 Rx
pantoprazole 40 mg tablet,delayed 40 mg PO DAILY #90 tabs 02/03/24 02/13/24 Rx
release
Review of Systems
-
History Source: Patient
Constitutional: Weight Gain and Fatigue
EENT: No Symptoms
Respiratory: Trouble Breathing
Cardiac: Palpitations
Abdomen/GI: No Symptoms
: No Symptoms
Musculoskeletal: Edema
Skin: No Symptoms
Neurological: No Symptoms
Endocrine: No Symptoms
Hematologic/Lymphatic: No Symptoms
Physical Exam
Vital Signs
Temp Pulse Resp BP Pulse Ox
98.2 F 68 23 114/102 95
02/13/24 12:52 02/13/24 17:45 02/13/24 17:45 02/13/24 17:20 02/13/24 17:45
Lab Results
02/13/24 15:14
02/13/24 15:14
Troponin I 0.042 ng/ml H* 02/13/24 15:14
Wcd-J-Sffminsyvhh Pept 1700 pg/ml 02/13/24 15:14
Physical Exam
General: Well Developed, Well Nourished and No Apparent Distress
HEENT: Normocephalic
Respiratory: Rhonchi, Non Labored Respirations and Other (Decreased breath sounds at base)
Cardiac: S1/S2, Regular Rhythm and Murmur (3/6 syst LSB)
GI: Soft, Non Tender and Non Distended
Genito-urinary: No Costovertebral Tender
Musculoskeletal: Edema (+1)
Skin: Warm and Dry
Neuro: AO x 3
Psych: Calm
Impression / Plan
-
Assess:
Acute on chronic heart failure with preserved ejection fraction
Severe aortic stenosis
Coronary disease status post RCA PCI 02/02/24
Hypertension
Hyperlipidemia
Obesity/spinal stenosis
Paroxysmal atrial tachycardia/left bundle branch
Sick sinus syndrome
Osteoarthritis
Diverticular disease
01/12/24 Echo: LVEF 55 to 60%, severe aortic stenosis with a mean gradient of 54. 40% diagonal
02/02/24: [facility]: PCI of RCA, LVEDP 27, mean gradient 59 mmHg
Plan:
She presents with acute on chronic heart failure with known severe/critical aortic stenosis with mean gradients in the mid 50s mmHg.
Start Lasix 40 mg IV daily.
She is currently undergoing evaluation for transcatheter aortic valve replacement. She is planned for outpatient CT scan and appointment with Dr. Middleton on Wednesday.
Hopefully she can be diuresed over the next 24 hours and follow-up as an outpatient. If she does not improve her evaluation may be needed to done as an inpatient.
Continue aspirin, Plavix, atorvastatin, and diltiazem
Data Reviewed
-
EKG: Report Reviewed by me
Radiology: Image Personally Visualized and interpreted
CT Scan: Report Reviewed by me
Medical Tests (Nuc Med, Echo etc): Report Reviewed by me
Labs: Labs Reviewed by me
Old Records: Reviewed
[2024-02-13] MEDS: LASIX 40 MG IV (18:10)
--- NOTE | 2024-02-13 18:32 | HPS.HSE ---
Addendum entered and electronically signed by LEESA Ro 02/13/24 20:36:
Physical exam
4/6 systolic murmur with known aortic stenosis
Original Note:
Family Physician
-
Family Physician: Christophe Mejia
Chief Complaint
-
Shortness of breath, weight gain
History of Present Illness
88-year-old female complaining of shortness of breath over the past several days waking her up at 4 AM . She reports symptoms lasted approximately 1 hour, but she needed to sit up fully in the bed as pillows did not help. She states she had a 4
pound weight gain over the past 2 to 3 days. She denies any chest pain or history of sleep apnea. She has history of severe aortic stenosis and is due to have a CT of her chest on Wednesday with follow-up by Dr. Middleton on Wednesday to set up
appointment for future TAVR. She had prior echo a few weeks ago by Dr. Spangler at [facility]. She denies fever, chills, chest pain, palpitations, cough, abdominal pain, nausea, vomiting, diarrhea, urinary symptoms.
She is s/p cardiac cath found to have distal RCA stenosis which was stented with 1 drug-eluting stent. During the procedure she had paroxysmal atrial tachycardia but no documented A-fib she also had a left bundle branch block. She has past
medical history of severe aortic stenosis peak gradient 95/55 mmHg status post TAVR, CAD status post distal RCA drug-eluting stent 02/02/2024, paroxysmal atrial tachycardia, LBBB, tachybradycardia syndrome, HTN, HLD, LVH, spinal stenosis,
rectovaginal fistula with repair, obesity.
Medical History
Past Medical History
Past Medical History: Reports Other
Additional Past Medical History:
CAD status post distal RCA drug-eluting stent 02/02/2024
paroxysmal atrial tachycardia during stent 02/02/2024
LBBB, tachybradycardia syndrome during stent 02/02/2024
HTN
HLD
LVH
spinal stenosis
rectovaginal fistula with repair
obesity
Past Surgical History: Reports Other
Additional Past Surgical History:
CAD status post distal RCA drug-eluting stent 02/02/2024
Tonsillectomy
Appendectomy
Right lower quadrant hernia repair
Hysterectomy
CTR bilateral wrist
Melanoma removal left shoulder back
Sinus surgery
Bilateral knee replacements
Social History
Tobacco: Non-smoker
Alcohol: None
Drug: None
Personal: Single
Living: With Family
Employment: Retired
Family History
Family History: Other (Father age 56 history of alcohol abuse, smoker, unknown type of cancer, mother cardiac disease age 93)
Allergies / Home Medications
Allergies reflects when Allergies were last updated in [facility].
Home Medications with original date entered in [facility]
Allergy/Medication List:
Allergies
Allergy/AdvReac Type Severity Reaction Status Date / Time
albuterol Allergy Severe Pharmacy Verified 02/13/24 12:52
to Review
amitriptyline Allergy Severe Pharmacy Verified 02/13/24 12:52
to Review
gabapentin Allergy Severe Pharmacy Verified 02/13/24 12:52
to Review
Penicillins Allergy Intermediate Hives Verified 02/13/24 12:52
Home Medications
Saccharomyces boulardii 250 mg capsule 250 mg PO BID 02/02/24
acetaminophen 500 mg tablet 1,000 mg PO Q6H PRN mild pain 02/02/24
ascorbic acid (vitamin C) 500 mg tablet (Vitamin C) 500 mg PO DAILY 02/02/24
calcium carbonate 600 mg-vitamin D3 5 mcg (200 unit) tablet 1 tab PO DAILY 02/02/24
cranberry fruit concentrate 250 mg chewable tablet 250 mg PO TID 02/02/24
diltiazem HCl 180 mg capsule,extended release 24 hr, controlled 180 mg PO DAILY 02/02/24
mecobalamin (vitamin B12) 500 mcg chewable tablet 500 mcg PO DAILY 02/02/24
multivitamin 1 tab PO DAILY 02/02/24
olive leaf extract 250 mg capsule 250 mg PO DAILY 02/02/24
omega-3 964 mg-dha 257 mg-epa 643 mg-fish oil 1.286 gram capsule 1 cap PO DAILY 02/02/24
psyllium husk 0.52 gram capsule 0.52 g PO DAILY 02/02/24
vibegron 75 mg tablet (Gemtesa) 75 mg PO DAILY 02/02/24
aspirin 81 mg chewable tablet (Children's Aspirin) 81 mg PO DAILY #1 tab 02/03/24
atorvastatin 10 mg tablet 10 mg PO QPM #90 tabs 02/03/24
clopidogrel 75 mg tablet 75 mg PO DAILY #90 tabs 02/03/24
pantoprazole 40 mg tablet,delayed release 40 mg PO DAILY #90 tabs 02/03/24
Review of Systems
-
History Source: Patient
A 12 point ROS was completed and negative except as noted: Yes
Constitutional: Reports Weight Gain (4 pounds past 2 to 3 days); Denies Fever or Chills
EENT: Denies Sore Throat or Runny Nose
Respiratory: Reports Trouble Breathing (Orthopnea); Denies Cough
Cardiac: Denies Chest Pain, Diaphoresis, Palpitations or Syncope
Abdomen/GI: Denies Abdominal Pain, Nausea, Vomiting, Diarrhea, Constipated, Bloody Stools or Black Stools
: Denies Dysuria, Frequency, Flank Pain, Incontinence, Difficulty Voiding or Urgency
Musculoskeletal: Reports Edema (Trace bilateral lower legs); Denies Joint Pain
Skin: Denies Itching or Rash
Neurological: Denies Dizzy, Headache or Weakness
Endocrine: Reports No Symptoms
Hematologic/Lymphatic: Reports No Symptoms
Psych: Reports Calm
Physical Exam
Vital Signs
Vital Signs
Temp Pulse Resp BP Pulse Ox
98.2 F 69 21 126/55 96
02/13/24 12:52 06/02/24 18:15 02/13/24 18:15 02/13/24 18:10 02/13/24 18:15
Physical Exam
General: Conversant and Other (Tachypneic with shortness of breath at rest)
HEENT: NormoCephalic, Anicteric, Moist mucous membranes, PERRLA, [place] Conjunctivae and No Ptosis
Respiratory: Clear; No Wheezes, Rales or Rhonchi
Cardiac: S1/S2, Regular Rhythm and Peripheral Edema (Trace bilateral legs); No Murmur, Rub, Gallop or JVD
Breast: Deferred by me
GI: Soft, Non Tender, Non Distended, Normal Bowel Sounds and No Hepatosplenomegaly
Rectal: Deferred by Provider
Genito-urinary: Deferred by me
Musculoskeletal: No Clubbing, No Cyanosis, Edema, Left Lower Extremity (Trace) and Edema, Right Lower Extremity (Trace); No Edema, Left Upper Extremity or Edema, Right Upper Extremity
Skin: Warm and Dry; No Rash
Neuro: AO x 3, No Motor Deficits, Nonfocal/grossly intact, Cranial Nerves Intact and No Sensory Deficits; No Slurred Speech, Facial Droop or Tremors
Psych: Calm
Laboratory Results
-
02/13/24 15:14
02/13/24 15:14
Laboratory Results
Total Bilirubin 0.5 mg/dl (0.2-1.3) 02/13/24 15:14
AST 28 U/L (14-36) 02/13/24 15:14
ALT 19 U/L (0-35) 02/13/24 15:14
Alkaline Phosphatase 69 U/L (38-126) 02/13/24 15:14
Troponin I 0.042 ng/ml H* 02/13/24 15:14
Impression/Plan
-
Impression/plan:
Admit to telemetry
#Acute CHF
pt with wt gain 4 lbs past few days (weight 89 kg was 86.2 kg on 02/02/2024 Wt gain 3kg/ 6lbs x 11 days
I/O, daily weight
-BNP 1700
-IV Lasix 40 mg in ER, continue IV Lasix 40 mg daily
-Consult [facility] cardiology-Case was discussed by ER with Dr Abbott
-2D echo-obtain records from Dr. Spangler [facility]
- fluid restrict diet
- Pt/Ot/case mgmt consult
#Nonischemic myocardial injury
Troponin 0.042
-Continue statin, aspirin
#Severe aortic stenosis
- due for Ct chest and upcoming appt with vas surgery Dr Middleton to magnus TAVR
-Continue statin, aspirin
#CAD
-S/P RCA drug-eluting stent 02/02/2024
-Continue Plavix 75 mg daily, atorvastatin 10 mg daily, aspirin 81 mg daily
#Left ventricular hypertrophy
#LBBB hx
#Paroxysmal atrial tachycardia Hx during TAVR/cath 02/02/2024
-Continue diltiazem 180 mg daily
# Tachybradycardia syndrome HX during cath 02/02/2024
#HTN-benign
-BP 126/55
-Continue diltiazem 180 mg daily
#HLD
-Continue statin
#GERD
-Continue Protonix 40 mg daily
# Spinal stenosis
-Continue Tylenol as needed
# Rectovaginal fistula s/p repair
# Chronic urinary frequency
-Continue Gemtesa 75 mg daily
# Obesity due to excess calorie consumption�BMI 35.9 kg
Weight loss recommended
Low-fat diet
DVT prophylaxis
Subcu Lovenox
Full code
--- NOTE | 2024-02-13 20:31 | W.PN.UPDATE ---
Update Note
Progress Note Update
Attending note.
Patient examined and interviewed independently
88-year-old woman with shortness of breath over the past several days. She is s/p cardiac cath found to have: distal RCA stenosis (stented with 1 drug-eluting stent). Past medical history of severe aortic stenosis peak gradient 95/55 mmHg status
post TAVR, CAD status post distal RCA drug-eluting stent 02/02/2024, paroxysmal atrial tachycardia, LBBB, tachybradycardia syndrome, HTN, HLD, LVH, spinal stenosis, rectovaginal fistula with repair, obesity. She feels better in the ED after
receiving lasix.
Past Medical History:
CAD status post distal RCA drug-eluting stent 02/02/2024
paroxysmal atrial tachycardia during stent 02/02/2024
LBBB, tachybradycardia syndrome during stent 02/02/2024
essential HTN
HLD
LVH
spinal stenosis
rectovaginal fistula with repair
obesity
Physical Exam
General: Conversant
Respiratory: Clear; No Wheezes, Rales or Rhonchi
Cardiac: S1/S2, loud Murmur (aortic position)
GI: Soft, Non Tender, Non Distended
Psych: Calm
Impression/plan:
Acute CHF
pt with wt gain 4 lbs past few days Wt gain of 3kg/ 6lbs x 11 days
I/O, daily weight
-IV Lasix 40 mg in ER, continue IV Lasix 40 mg daily
-Consult [facility] cardiology-Case was discussed by ER with Dr Abbott
-2D echo-obtain records from Dr. Spangler [facility]
- fluid restrict diet
- Pt/Ot/case mgmt consult
Please see [employer]ER [employer]ER note for other details.
[2024-02-13 22:12] LABS: Troponin I 0.046 ng/ml
[2024-02-13] MEDS: FLORASTOR 250 MG PO (22:36)
[2024-02-14] VITALS (13 sets, daily range): BP systolic 95–137; BP diastolic 41–85; PULSE 69–72; O2SAT 93; BMI 37.6
[2024-02-14 03:25] LABS: Troponin I 0.045 ng/ml
[2024-02-14 06:24] LABS: % Basophils 0.4 % (0-2); % Eosinophils 0.6 % (0-6); % Immature Granulocytes 0.8 % (0-0.5); % Lymphocytes 15.2 % (20.5-51.1); % Monocytes 13.8 % (1.7-9.3); % Neutrophils 69.2 % (42.2-75.2); Absolute Eosinophils 0.1 10^3/uL (0-0.7); Absolute Immature Granulocytes 0.1 10^3/uL (0-0.05); Absolute Lymphocytes 1.5 10^3/uL (1.2-3.4); Absolute Monocytes 1.4 10^3/uL (0.1-0.6); Absolute Neutrophils 6.9 10^3/uL (1.4-6.5); Hematocrit 36.5 % (37.0-47.0); Hemoglobin 13.5 g/dL (12.0-16.0); Mean Corpuscular Hgb 33.8 pg (27.0-31.0); Mean Corpuscular Volume 91.5 fL (81.0-99.0); Mean Platelet Volume 10.7 fL (7.4-10.4); Nucleated Red Blood Cells % 0 %; Platelet Count 163 10^3/uL (130-400); Red Blood Cell Count 3.99 10^6/uL (4.20-5.40); Red Cell Dist. Width 13.1 % (11.5-14.5); White Blood Cell Count 9.9 10^3/uL (4.8-10.8)
[2024-02-14 06:49] LABS: Blood Urea Nitrogen 22 mg/dl (7-17); Calcium 9.8 mg/dl (8.4-10.2); Carbon Dioxide 26 mmol/L (22-30); Chloride 101 mmol/L (98-107); Estimated Creatinine Clearance 56 ml/min; Glucose 124 mg/dl (70-99); Potassium 4.1 mmol/L (3.5-5.1); Sodium 139 mmol/L (135-145); eGFR > 60.00
[2024-02-14] MEDS: OSCAL 500 + D 600 MG PO (09:25)
[2024-02-14] MEDS: PROTONIX 40 MG PO (09:25)
[2024-02-14] MEDS: LOW STRENGTH ASPIRIN 81 MG PO (09:25)
[2024-02-14] MEDS: VITAMIN C 500 MG PO (09:26)
[2024-02-14] MEDS: VITAMIN B-12 500 MCG PO (09:26)
[2024-02-14] MEDS: THERAGRAN 1 TABLET PO (09:26)
[2024-02-14] MEDS: PLAVIX 75 MG PO (09:28)
[2024-02-14] MEDS: CARDIZEM CD 180 MG PO (09:28)
[2024-02-14] MEDS: LASIX 40 MG IV (09:29)
--- NOTE | 2024-02-14 11:10 | W.PN.CARDCBS ---
Today's Communication / Plan
-
Continue IV Lasix
TAVR CT
CT surgery consult
Impression / Plan
-
Assess:
Acute on chronic heart failure with preserved ejection fraction
Severe aortic stenosis
Coronary disease status post RCA PCI 02/02/24
Hypertension
Hyperlipidemia
Obesity/spinal stenosis
Paroxysmal atrial tachycardia/left bundle branch
Sick sinus syndrome
Osteoarthritis
Diverticular disease
01/12/24 Echo: LVEF 55 to 60%, severe aortic stenosis with a mean gradient of 54. 40% diagonal
02/02/24: [facility]: PCI of RCA, LVEDP 27, mean gradient 59 mmHg
Plan:
She looks reasonably well at present but is still volume overloaded. Would continue IV furosemide. Transition to oral probably in 24 to 48 hours.
She is scheduled for her TAVR CT and an appointment with CT surgery for tomorrow. Will plan on proceeding with CT scan in a.m. prior to discharge.
Will notify CT surgery. Perhaps consult could be performed while in hospital.
Continue other medications.
Progress Note - N[employer] Professional
Subjective
Date of Service: February 14, 2024:
PM/PS//SH: Reviewed
Allergies: Albuterol, amitriptyline, gabapentin, penicillin
Outpatient medications reviewed, aspirin, Plavix 75 mg a day, diltiazem ER 180 mg a day, not chronically on furosemide
Current medications: Aspirin 81 mg a day, atorvastatin 10 mg a day, clopidogrel 75 mg a day, diltiazem ER 180 mg a day, subcu Lovenox, furosemide 40 mg IV daily
ROS: Negative except as above
106/85, pulse 88, sats 95%, weight is 89 kg as of yesterday, not weighed today, appears tachypneic, obese, head neck exam unremarkable, lungs relatively clear, neck veins elevated, aortic stenosis murmur, abdomen obese, extremities mild edema, neuro
nonfocal
Hemoglobin 13.5, platelets are 163, BUN and creatinine are 22 and 0.7 with a potassium of 4.1, troponin is 0.045, proBNP was 1700 yesterday
Objective
Labs:
02/14/24 05:43
02/14/24 05:43
Labs
Hgb 13.5 g/dL (12.0-16.0) 02/14/24 05:43
Hct 36.5 % (37.0-47.0) L 02/14/24 05:43
Plt Count 163 10^3/uL (130-400) 02/14/24 05:43
Sodium 139 mmol/L (135-145) 02/14/24 05:43
Potassium 4.1 mmol/L (3.5-5.1) 02/14/24 05:43
BUN 22 mg/dl (7-17) H 02/14/24 05:43
Creatinine 0.7 mg/dL (0.6-1.0) 02/14/24 05:43
Glucose 124 mg/dl (70-99) H 02/14/24 05:43
Troponins
02/13/24 02/13/24 02/14/24
15:14 21:36 02:48
Troponin I 0.042 H* 0.046 H* 0.045 H*
Vital Signs and I&O:
Vital Signs
Temp Pulse Resp BP Pulse Ox
36.8 C 88 19 106/85 95
02/13/24 12:52 02/14/24 09:28 02/14/24 02:30 02/14/24 09:28 02/14/24 02:30
Vital Signs
Temp Pulse Resp BP Pulse Ox
36.8 C 88 19 106/85 95
02/13/24 12:52 02/14/24 09:28 02/14/24 02:30 02/14/24 09:28 02/14/24 02:30
Intake & Output
02/12/24 02/13/24 02/14/24 02/15/24
07:59 07:59 07:59 07:59
Output Total 1625 / 1625
Balance -1625 / -1625
Physical Exam
Physical Exam
See above
[2024-02-14] MEDS: FLORASTOR 250 MG PO ×2 (11:18→21:49)
[2024-02-14] MEDS: KCL 20 MEQ PO (13:17)
--- NOTE | 2024-02-14 14:36 | CONSULT.CT ---
Addendum entered and electronically signed by Ronaldo Middleton MD 02/15/24 13:31:
CARDIAC SURGERY ATTENDING:
It was my extreme pleasure to meet with Mrs. Jay Tejada. I agree with the consultation note as dictated below. I believe she will benefit from TAVR.
Her peak/mean gradients are 95.4/54.6 respectively with concurrent associated mild aortic insufficiency. She also has mild to moderate MR and mild TR. Her LVEF is preserved at 55 to 60%. She has known CAD and is status post a ABHINAV to her RCA on
02/02/[address] Man Méndez. Her TAVR CT scan was completed today, measurements are pending at this time. She recently had 2 teeth extracted, but has not seen her primary dentist since this procedure and will require formal dental clearance.
I had a long conversation at bedside with Mrs. Tejada. Her son was present during our discussions. We reviewed the TAVR procedure in great detail, the associated procedural risks (including, but not limited to, , stroke, NM, arrhythmia, PPM
requirement, PNA, INGE/F, vascular injury/bleeding, and infection), the expected in-hospital postprocedural course, and expected outpatient recovery. All questions were answered to the best my abilities. We also discussed the structural heart team
approach, and the possibility that my colleague, Dr. Hesham Torres, may be present as a surgical data entry representative at the time of her TAVR implant. Although given her advanced age, she would be of limited surgical rescue, the patient would be agreeable
to surgical rescue if deemed appropriate by the covering surgeon.
She will be discussed in multidisciplinary structural heart team conference in the near future. At that time final decisions will be made regarding her TAVR candidacy, valve type/size, procedural approach, and procedural scheduling. The patient
and her son were told to call or return should she have any questions, concerns, or changes to overall condition.
Thank you for the opportunity to participate in the care of this kind patient.
Ronaldo Middleton MD
[phone]
Original Note:
Consultation
-
Date/Time Consultation Requested: 02/14/24
Date/Time Consultation Performed: 02/14/24 1440
Requesting Provider: Dr. Agustin Fraser MD.
Performing Provider: Dinora Guillermo PA-C on behalf of Dr. Ronaldo Middleton MD.
Reason for Consultation: Severe aortic stenosis, evaluation for TAVR
Patient History
Physicians
Family Physician: Dr. Christophe Mejia MD
Outpatient Procurement Technician: Dr. Yusef Spangler MD
Inpatient Procurement Technician: [facility]-Dr. Agustin Fraser MD.
History of Present Illness
Patient is extremely pleasant 88-year-old female with a known history of severe aortic stenosis. Patient also carries a PMH history significant for rectovaginal fistula repair 2022 (prolonged recovery), arrhythmias (paroxysmal atrial
tachycardia), h/o LBBB, CAD s/p ABHINAV to RCA on 02/02/24 by OSBALDO [facility], HTN, HLD, morbid obesity (BMI 35.9), spinal stenosis, h/o melanoma (L shoulder) s/p excision, arthritis, diverticular disease, chronic Plavix use secondary to ABHINAV to RCA,
PEPITO, and osteoarthritis s/p b/l TKR.
Patient has been experiencing shortness of breath and dyspnea upon exertion for quite some time however over the past 3 days has become progressively worse, and is now waking her up from sleep. Patient also admitted to orthopnea, 4 pound weight
gain in the past 2 to 3 days, and fatigue. She sought medical attention at [facility] ED on 02/13/24.
Patient had an outpatient echocardiogram performed on 01/12/2024 at [facility] revealing an ejection fraction of 55 to 60%, severe aortic stenosis with peak gradient/mean gradient of 95.4/54.6, and mild AI. Mild to moderate MR, mild TR, and
a normal pulmonary valve.
Patient was scheduled to have an outpatient consultation with Dr. Ronaldo Middleton MD tomorrow 02/15/2024, however due to patient's acute on chronic heart failure with preserved ejection fraction, and current inpatient hospitalization, CT surgery
consult was placed.
Past Medical History
Past Medical History: Other
Rectovaginal fistula repair 2022 (prolonged recovery)
Arrhythmias (paroxysmal atrial tachycardia)
H/o LBBB
CAD s/p ABHINAV to RCA on 02/02/[address] Méndez
SOB/SHOEMAKER
HTN/HLD
Morbid obesity (BMI 35.9)'
Spinal stenosis
H/o melanoma (L shoulder) s/p excision
Arthritis
Diverticular disease
Chronic Plavix use secondary to ABHINAV to RCA
PEPITO
Osteoarthritis s/p b/l TKR
Past Surgical History
Past Surgical History: Other
CAD s/p ABHINAV to RCA on 02/02/[address] Méndez
B/L TKA -[facility]
Appendectomy 1995 in [place]
Right inguinal hernia repair
Hysterectomy
Tonsillectomy
B/L carpal tunnel release
Melanoma excision (left shoulder)
Bilateral cataract surgery
Right chest tube placement at the age of 3 due to PNA/Empyema
Dental History
Dr. Paula Stewart, DMD.
Family [facility]
Family History
Mother: at Age (93) and Cause of (Complications with heart failure)
Father: at Age (56) and Cause of (Cancer (unknown source))
Social History
Alcohol: None
Drug: None
Tobacco: Non-Smoker
Personal:
Living: With Family (Lives with son and in-law suite. Has a total of 3 living children)
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
Allergies
Allergy/AdvReac Type Severity Reaction Status Date / Time
albuterol Allergy Severe Pharmacy Verified 02/13/24 12:52
to Review
amitriptyline Allergy Severe Pharmacy Verified 02/13/24 12:52
to Review
gabapentin Allergy Severe Pharmacy Verified 02/13/24 12:52
to Review
Penicillins Allergy Intermediate Hives Verified 02/13/24 12:52
Home Medications
�Medication �Instructions �Recorded �Confirmed �Type
Saccharomyces boulardii 250 mg 250 mg PO BID 02/02/24 02/13/24 History
capsule
acetaminophen 500 mg tablet 1,000 mg PO Q6H PRN mild pain 02/02/24 02/13/24 History
ascorbic acid (vitamin C) 500 mg 500 mg PO DAILY 02/02/24 02/13/24 History
tablet (Vitamin C)
calcium carbonate 600 mg-vitamin 1 tab PO DAILY 02/02/24 02/13/24 History
D3 5 mcg (200 unit) tablet
cranberry fruit concentrate 250 mg 250 mg PO TID 02/02/24 02/13/24 History
chewable tablet
diltiazem HCl 180 mg 180 mg PO DAILY 02/02/24 02/13/24 History
capsule,extended release 24 hr,
controlled
mecobalamin (vitamin B12) 500 mcg 500 mcg PO DAILY 02/02/24 02/13/24 History
chewable tablet
multivitamin 1 tab PO DAILY 02/02/24 02/13/24 History
olive leaf extract 250 mg capsule 250 mg PO DAILY 02/02/24 02/13/24 History
omega-3 964 mg-dha 257 mg-epa 643 1 cap PO DAILY 02/02/24 02/13/24 History
mg-fish oil 1.286 gram capsule
psyllium husk 0.52 gram capsule 0.52 g PO DAILY 02/02/24 02/13/24 History
vibegron 75 mg tablet (Gemtesa) 75 mg PO DAILY 02/02/24 02/13/24 History
aspirin 81 mg chewable tablet 81 mg PO DAILY #1 tab 02/03/24 02/13/24 Rx
(Children's Aspirin)
atorvastatin 10 mg tablet 10 mg PO QPM #90 tabs 02/03/24 02/13/24 Rx
clopidogrel 75 mg tablet 75 mg PO DAILY #90 tabs 02/03/24 02/13/24 Rx
pantoprazole 40 mg tablet,delayed 40 mg PO DAILY #90 tabs 02/03/24 02/13/24 Rx
release
Review of Systems
-
History Source: Patient
General: Reports Weight Gain (4 pounds over 2 to 3 days) and Fatigue; Denies Fever, Weight Loss or Night Sweats
HEENT: Denies Visual Changes, Dysphagia, Hoarseness or Sore Throat
Respiratory: Reports SOB, SHOEMAKER and PND; Denies Cough or Asthma
Cardiac: Reports CAD and Known Vascular Disease; Denies Chest Pain, Palpitations, Nausea, Vomiting or Edema
Abdomen/GI: Denies Abdominal Pain, Indigestion, Nausea, Vomiting, Diarrhea, Constipation or BRBPR
: Denies Dysuria, Frequency, Urgency or Hematuria
Musculoskeletal: Reports Myalgias and Arthralgias; Denies Edema
Skin: Denies Itching or Rash
Neurological: Denies CVA, TIA, Headaches, Syncope, Dizzy or Seizures
Vascular: Denies Claudication or PVD
Physical Exam
Vital Signs
Temp 97.6 F 02/14/24 12:11
Temp route: Oral 02/14/24 12:11
Pulse 68 02/14/24 12:11
Resp Rate 22 02/14/24 12:11
Blood pressure 110/71 02/14/24 12:11
Blood pressure extremity used: Left upper arm 02/13/24 12:52
Position: Lying 02/14/24 12:11
MAP (cuff-Sylvie Monitor) 72 02/14/24 02:00
MAP 81 02/14/24 12:11
SaO2 93 02/14/24 12:11
Oxygen Mode of Delivery Room air 02/14/24 11:14
Pulse Ox at Rest 93 02/14/24 11:24
Actual Weight 196 lb 3.382 oz 02/13/24 14:39
Body Mass Index (BMI) 35.9 02/13/24 14:39
Supine- Blood Pressure 119/68 02/14/24 11:24
Supine- Pulse 72 02/14/24 11:24
Heart rate after activity 75 02/14/24 11:24
Oxygen Saturation with Activity 90 02/14/24 11:24
Labs
02/14/24 05:43
02/14/24 05:43
Troponin I 0.045 ng/ml H* 02/14/24 02:48
Hsp-J-Mkufuuzaacu Pept 1700 pg/ml 02/13/24 15:14
Diagnostic Studies
EKG 02/14/24:
SR (69) LBBB
Echocardiogram 01/12/24: [facility]
EF 55 to 60%
Severe aortic stenosis with peak gradient/mean gradient of 95.4/54.6, and mild AI.
Mild to moderate MR
Mild TR
Normal pulmonary valve.
Exam
General: Well Developed, Well Nourished and No Apparent Distress
HEENT: Normocephalic, Anicteric, Moist Mucous Membranes, PERRLA and EOMI
Neck: Trachea Midline; Negative Carotid Bruit
Respiratory: Clear; Negative Wheezes, Crackles, Rhonchi or Accessory Muscle Use
Cardiac: S1/S2, Regular Rhythm and Murmur (4/6 systolic ejection murmur heard loudest over LSB ); Negative Rub or Gallop
GI: Soft, Non Tender, Non Distended, Normal Bowel Sounds and Other (Obese )
Rectal: Deferred by Provider
Skin: Warm and Dry; Negative Rash
Neuro: AO x 3, No Motor Deficits and CN X-XII Intact
Extremities: Negative Upper Level Edema, Lower Level Edema, Upper Level Cyanosis, Lower Level Cyanosis, Upper Level Clubbing or Lower Level Clubbing
Psych: Calm
Assessment / Plan
-
Assessment:
88 y/o female w/ PMH significant for:
Rectovaginal fistula repair 2022 (prolonged recovery)
Arrhythmias (paroxysmal atrial tachycardia)
H/o LBBB
CAD s/p ABHINAV to RCA on 02/02/[address] Méndez
SOB/SHOEMAKER
HTN/HLD
Morbid obesity (BMI 35.9)'
Spinal stenosis
H/o melanoma (L shoulder) s/p excision
Arthritis
Diverticular disease
Chronic Plavix use secondary to ABHINAV to RCA
PEPITO
Osteoarthritis s/p b/l TKR
Now with:
Severe and progressing aortic valve stenosis
Acute on chronic heart failure with preserved ejection fraction
SOB/SHOEMAKER/PND/orthopnea
Plan:
Patient's case will be discussed with attending physician Dr. Ronaldo Middleton MD.
Patient improved after IV diuresis.
Admit to inpatient via medicine/hospitalist service
Cardiology following, input appreciated
Will obtain TAVR CT scan
Further plans regarding TAVR will be discussed after attending's full review and discussion with Cardiology.
--- NOTE | 2024-02-14 15:37 | W.PN.HOSP.TC ---
Addendum entered and electronically signed by Dominique Gonzalez MD 02/15/24 09:52:
Hypomagnesemia - BID replacement ordered
Original Note:
Today's Communication/Plan
-
see outlined plan
Assessment / Plan
Assessment / Plan
Assessment:
Acute on chronic HFpEF
Severe
- IV Lasix - requires intensive monitoring of I/Os, weights, Lytes
- continue OFR
- scheduled for TAVR CT - will obtain tomorrow
- CT consulted
- obtain records from recent Echo ([facility])
Nonischemic myocardial injury
hx of CAD s/p RCA ABHINAV 02/02/24
- Troponin 0.042
- Continue Plavix/ASA/Statin
Left ventricular hypertrophy
LBBB hx
Paroxysmal atrial tachycardia Hx during TAVR/cath 02/02/2024
- continue diltiazem 180 mg daily
Tachybradycardia syndrome HX during cath 02/02/2024
Essential HTN
- continue diltiazem 180 mg daily
HLD
- continue statin
GERD
- continue Protonix 40 mg daily
Spinal stenosis
- continue Tylenol as needed
Rectovaginal fistula s/p repair
Chronic urinary frequency
- continue Gemtesa 75 mg daily
Obesity due to excess calorie consumption�BMI 35.9 kg
- Weight loss recommended
- Low-fat diet
DVT prophylaxis: Lovenox
Code: Full
Anticipated Discharge: > 48 hours
Subjective/Interval History
-
Date of Service: February 14, 2024
feels improved from admission
remains on IV diuretics
Objective Data
-
Labs:
Laboratory Results
02/14/24
05:43
WBC 9.9
Hgb 13.5
Hct 36.5 L
Plt Count 163
Sodium 139
Potassium 4.1
Chloride 101
Carbon Dioxide 26
BUN 22 H
Creatinine 0.7
Glucose 124 H
Calcium 9.8
Vital Signs:
Vital Signs
Temp Pulse Resp BP Pulse Ox
97.6 F 68 22 110/71 93
02/14/24 12:11 02/14/24 12:11 02/14/24 12:11 02/14/24 12:11 02/14/24 12:11
I&O
02/13/24 02/14/24 02/15/24
06:59 06:59 06:59
Output Total 1625 / 1625
Balance -1625 / -1625
Physical Exam
-
General: No Apparent Distress
HEENT: Normocephalic and Atraumatic
Respiratory: Clear to Auscultation
Cardiac: Murmur
GI: Soft
Musculoskeletal: No Edema
Neuro: AO x 3
Psych: Calm
Data Reviewed
-
Total Time Spent with Patient (in minutes): 51
Labs: Labs Reviewed by me
[2024-02-14] MEDS: LIPITOR 10 MG PO (17:25)
[2024-02-14] MEDS: LOVENOX 40 MG SC (17:25)
[2024-02-14] MEDS: NON-FORMULARY ITEM PO (23:32)
[2024-02-15] MEDS: TYLENOL 1000 MG PO (01:35)
[2024-02-15 03:05] VITALS: BP 127/71
[2024-02-15 06:00] VITALS: BMI 36.4
[2024-02-15 07:00] VITALS: BP 109/60
[2024-02-15 07:25] LABS: % Basophils 0.3 % (0-2); % Eosinophils 0.6 % (0-6); % Immature Granulocytes 0.5 % (0-0.5); % Lymphocytes 15.2 % (20.5-51.1); % Monocytes 14.8 % (1.7-9.3); % Neutrophils 68.6 % (42.2-75.2); Absolute Eosinophils 0.1 10^3/uL (0-0.7); Absolute Immature Granulocytes 0.1 10^3/uL (0-0.05); Absolute Lymphocytes 1.5 10^3/uL (1.2-3.4); Absolute Monocytes 1.5 10^3/uL (0.1-0.6); Absolute Neutrophils 6.8 10^3/uL (1.4-6.5); Hematocrit 38.6 % (37.0-47.0); Hemoglobin 13.8 g/dL (12.0-16.0); Mean Corp Hgb Conc. 35.8 g/dL (33.0-37.0); Mean Corpuscular Hgb 33.6 pg (27.0-31.0); Mean Corpuscular Volume 93.9 fL (81.0-99.0); Mean Platelet Volume 10.8 fL (7.4-10.4); Nucleated Red Blood Cells % 0 %; Platelet Count 151 10^3/uL (130-400); Red Blood Cell Count 4.11 10^6/uL (4.20-5.40); Red Cell Dist. Width 13.1 % (11.5-14.5)
[2024-02-15 08:19] LABS: Blood Urea Nitrogen 32 mg/dl (7-17); Calcium 9.6 mg/dl (8.4-10.2); Carbon Dioxide 24 mmol/L (22-30); Chloride 100 mmol/L (98-107); Estimated Creatinine Clearance 44 ml/min; Glucose 132 mg/dl (70-99); Magnesium 1.5 mg/dl (1.6-2.3); Potassium 4.2 mmol/L (3.5-5.1); Sodium 136 mmol/L (135-145); eGFR > 60.00
[2024-02-15] MEDS: PROTONIX 40 MG PO (08:51)
[2024-02-15] MEDS: LOW STRENGTH ASPIRIN 81 MG PO (08:51)
[2024-02-15] MEDS: VITAMIN B-12 500 MCG PO (08:52)
[2024-02-15] MEDS: NON-FORMULARY ITEM 75 MG PO (08:53)
[2024-02-15] MEDS: PLAVIX 75 MG PO (08:54)
--- NOTE | 2024-02-15 09:50 | W.PN.HOSP.TC ---
Today's Communication/Plan
-
continue IV Lasix
CT TAVR today
Assessment / Plan
Assessment / Plan
Assessment:
Acute on chronic HFpEF
Severe
- IV Lasix - requires intensive monitoring of I/Os, weights, Lytes
- continue OFR
- scheduled for TAVR CT today
- CT consulted
- [facility] cards following
- obtain records from recent Echo ([facility])
Nonischemic myocardial injury
hx of CAD s/p RCA ABHINAV 02/02/24
- Troponin peaked at 0.046
- Continue Plavix/ASA/Statin
Left ventricular hypertrophy
LBBB hx
Paroxysmal atrial tachycardia Hx during TAVR/cath 02/02/2024
- continue diltiazem 180 mg daily
Tachybradycardia syndrome HX during cath 02/02/2024
Essential HTN
- continue diltiazem 180 mg daily
HLD
- continue statin
GERD
- continue Protonix 40 mg daily
Spinal stenosis
- continue Tylenol as needed
Rectovaginal fistula s/p repair
Chronic urinary frequency
- continue Gemtesa 75 mg daily
Obesity due to excess calorie consumption�BMI 35.9 kg
- Weight loss recommended
- Low-fat diet
DVT prophylaxis: Lovenox
Code: Full
Anticipated Discharge: 24 - 48 hours
Subjective/Interval History
-
Date of Service: February 15, 2024
SOB improving. Denies any CP
Objective Data
-
Labs:
Laboratory Results
02/15/24
07:04
WBC 10.0
Hgb 13.8
Hct 38.6
Plt Count 151
Sodium 136
Potassium 4.2
Chloride 100
Carbon Dioxide 24
BUN 32 H
Creatinine 0.8
Glucose 132 H
Calcium 9.6
Vital Signs:
Vital Signs
Temp Pulse Resp BP Pulse Ox
98.5 F 65 18 109/60 94
02/15/24 07:00 02/15/24 07:00 02/15/24 07:00 02/15/24 07:00 02/15/24 07:00
I&O
02/14/24 02/15/24 02/16/24
06:59 06:59 06:59
Intake Total 700 / 700
Output Total 1625 / 1625 550 / 550
Balance -1625 / -1625 150 / 150
Physical Exam
-
General: No Apparent Distress
HEENT: Normocephalic and Atraumatic
Respiratory: Negative Wheezes
Cardiac: Murmur
Genito-urinary: No Costovertebral Tender
Neuro: AO x 3
Psych: Calm
Data Reviewed
-
Total Time Spent with Patient (in minutes): 51
Labs: Labs Reviewed by me
--- NOTE | 2024-02-15 09:52 | CM ---
Addendum entered by Carli Coffman 02/15/24 14:33:
[facility] able to accept patient when ready for d/c.
Plan: home with [facility], son will transport.
Original Note:
Patient seen bedside.
IA completed.
Patient lives in in-law suite at son's house.
1 story in-law suite with no steps to enter.
patient ambulates with a RW at baseline.
Independent with adls.
patient has had [facility] and [facility] in the past, would like [facility] if services are needed.
PCP: DR Mejia
Pharmacy: [facility]
Plan: home with [facility]
--- NOTE | 2024-02-15 10:53 | WOUNDNOTE ---
WOC RN note: Patient off unit. Spoke with RN Maggie who stated she will assess patient's sacrum to determine if WOC RN consult indicated.
[2024-02-15] MEDS: VITAMIN C 500 MG PO (13:22)
[2024-02-15] MEDS: LASIX 40 MG IV (13:23)
[2024-02-15] MEDS: THERAGRAN 1 TABLET PO (13:23)
[2024-02-15] MEDS: OSCAL 500 + D 600 MG PO (13:24)
[2024-02-15] MEDS: FLORASTOR 250 MG PO ×2 (13:24→20:26)
[2024-02-15] MEDS: MAGNESIUM OXIDE 500 MG PO ×2 (13:24→20:26)
[2024-02-15] MEDS: KCL 20 MEQ PO (13:24)
[2024-02-15 15:13] VITALS: BP 124/61
--- NOTE | 2024-02-15 15:43 | W.PN.CARDCBS ---
Today's Communication / Plan
-
Pulmonary consult for right upper lobe mass
Needs to remain on Plavix until March 04, 2024 status post stent on 02/02/2024
Consider change to oral Lasix in a.m. as is much improved from CHF standpoint
Outpatient TAVR
Impression / Plan
-
Assess:
Acute on chronic heart failure with preserved ejection fraction
Severe aortic stenosis
CT of chest with right upper lobe mass
Coronary disease status post RCA PCI 02/02/24
Hypertension
Hyperlipidemia
Obesity/spinal stenosis
Paroxysmal atrial tachycardia/left bundle branch
Sick sinus syndrome
Osteoarthritis
Diverticular disease
01/12/24 Echo: LVEF 55 to 60%, severe aortic stenosis with a mean gradient of 54. 40% diagonal
02/02/24: [facility]: PCI of RCA, LVEDP 27, mean gradient 59 mmHg
Plan:
She seems to have improved from a CHF standpoint and will consider change to oral Lasix on 02/15
CT with new right upper lobe mass and pulmonary will be consulted
Needs to remain on Plavix until 1 month which will be March 04, 2024 if pulmonary biopsy is needed
Discussed with CT surgery and primary service with plans for outpatient TAVR
Progress Note - [employer] For [employer]
Subjective
Date of Service: February 15, 2024
No complaints
Objective
Labs:
02/15/24 07:04
02/15/24 07:04
Labs
Hgb 13.8 g/dL (12.0-16.0) 02/15/24 07:04
Hct 38.6 % (37.0-47.0) 02/15/24 07:04
Plt Count 151 10^3/uL (130-400) 02/15/24 07:04
Sodium 136 mmol/L (135-145) 02/15/24 07:04
Potassium 4.2 mmol/L (3.5-5.1) 02/15/24 07:04
BUN 32 mg/dl (7-17) H 02/15/24 07:04
Creatinine 0.8 mg/dL (0.6-1.0) 02/15/24 07:04
Glucose 132 mg/dl (70-99) H 02/15/24 07:04
Troponins
02/13/24 02/13/24 02/14/24
15:14 21:36 02:48
Troponin I 0.042 H* 0.046 H* 0.045 H*
Vital Signs and I&O:
Vital Signs
Temp Pulse Resp BP Pulse Ox
97.9 F 71 18 124/61 95
02/15/24 15:13 02/15/24 15:13 02/15/24 15:13 02/15/24 15:13 02/15/24 15:13
Vital Signs
Temp Pulse Resp BP Pulse Ox
97.9 F 71 18 124/61 95
02/15/24 15:13 02/15/24 15:13 02/15/24 15:13 02/15/24 15:13 02/15/24 15:13
Intake & Output
02/13/24 02/14/24 02/15/24 02/16/24
06:59 06:59 06:59 06:59
Intake Total 700 / 700
Output Total 1625 / 1625 550 / 550
Balance -1625 / -1625 150 / 150
Physical Exam
Physical Exam
General: Well developed, well nourished in NAD.
Neck: Supple, no JVD, HJR, carotids +2 B/L, no bruits bilaterally.
Heart: Non displaced PMI, RRR, 2/6 basal systolic murmur, No S3, S4, no rubs.
Lungs: Scattered rhonchi
Extremities: No clubbing, cyanosis or edema bilaterally.
Neuro: Grossly nonfocal, awake, alert and oriented x3.
[2024-02-15] MEDS: LIPITOR 10 MG PO (19:44)
[2024-02-15] MEDS: LOVENOX 40 MG SC (19:44)
[2024-02-15 19:55] VITALS: BP 123/75
[2024-02-15 23:20] VITALS: BP 143/77
[2024-02-16] VITALS (7 sets, daily range): BP systolic 104–154; BP diastolic 60–90; PULSE 70; O2SAT 96; BMI 37.3
[2024-02-16 08:39] LABS: Blood Urea Nitrogen 34 mg/dl (7-17); Calcium 9.8 mg/dl (8.4-10.2); Carbon Dioxide 25 mmol/L (22-30); Chloride 98 mmol/L (98-107); Estimated Creatinine Clearance 40 ml/min; Glucose 135 mg/dl (70-99); Magnesium 1.8 mg/dl (1.6-2.3); Potassium 4.2 mmol/L (3.5-5.1); Sodium 137 mmol/L (135-145); eGFR > 60.00
[2024-02-16] MEDS: LASIX 40 MG IV (09:29)
[2024-02-16] MEDS: KCL 20 MEQ PO (09:29)
[2024-02-16] MEDS: MAGNESIUM OXIDE 500 MG PO ×2 (09:30→20:01)
[2024-02-16] MEDS: VITAMIN C 500 MG PO (09:30)
[2024-02-16] MEDS: LOW STRENGTH ASPIRIN 81 MG PO (09:30)
[2024-02-16] MEDS: FLORASTOR 250 MG PO ×2 (09:30→20:01)
[2024-02-16] MEDS: THERAGRAN 1 TABLET PO (09:30)
[2024-02-16] MEDS: OSCAL 500 + D 600 MG PO (09:30)
[2024-02-16] MEDS: VITAMIN B-12 500 MCG PO (09:30)
[2024-02-16] MEDS: PLAVIX 75 MG PO (09:30)
[2024-02-16] MEDS: NON-FORMULARY ITEM 75 MG PO (09:31)
[2024-02-16] MEDS: PROTONIX 40 MG PO (09:31)
--- NOTE | 2024-02-16 10:00 | WOUNDNOTE ---
EDWIN RN NOTE: Followed up today regarding a healed sacral PI. Received patient sitting on commode, PCT assisted patient to stand up with minimal assist, sacrum blanchable red, old healed PI with scar on R buttock visible. Patient confirmed she had a
PI there in past. Patient is on a [facility] air bed. No need for wound consult, will sign off.
--- NOTE | 2024-02-16 10:02 | CON.PUL ---
Consultation
Consultation Request
Date/Time Consultation Requested: 02/16/2024-10 AM
Date/Time Consultation Performed: 02/16/2024-10:30 AM
Requesting Provider: Hospitalist
Performing Provider: Dr. Quintana
Reason for Consultation: Pulmonary nodule
Medical History
-
Chief Complaint: Pulmonary nodule
History of Present Illness:
88-year-old female with a history of acute on top of chronic heart failure, CAD, paroxysmal atrial tachycardia and aortic stenosis scheduled for possible TAVR and CT showed new solid right upper lobe nodule-pulmonary consulted for pulmonary nodule
02/16/2024. Patient reports she was never smoker. She reports having a CT chest at [place] February of last year. She offers no complaints of shortness of breath at rest. Her shortness of breath after diuresis is improved significantly. She
denies any chest pain or chest tightness, productive cough, wheezing, abdominal pain, nausea, increased leg swelling or weakness.
Past Medical History
Past Medical History: None (Aortic stenosis-severe. Acute on top of chronic heart failure preserved EF. CAD status post PCI 02/02/2024. Paroxysmal atrial tachycardia. Sick sinus syndrome. Hypertension. Hyperlipidemia. Obesity. Spinal
stenosis. Osteoarthritis. Diverticulosis. Rectovaginal fistula repair. )
Past Surgical History: None (Wrist surgery. Melanoma removal left shoulder. Sinus surgery. Bilateral knee replacements.)
Social History
Tobacco: Non-smoker
Alcohol: None
Drug: None
Personal: Single
Living: With Family
Occupational Exposures: No known asbestos exposure
Environmental Exposures: No known tuberculosis exposure
Family History
Family History: Other (Father-alcohol abuse and smoker with cancer unknown type. Mother CAD.)
Allergies / Home Medications
Allergies
Allergy/AdvReac Type Severity Reaction Status Date / Time
albuterol Allergy Severe Pharmacy Verified 02/13/24 12:52
to Review
amitriptyline Allergy Severe Pharmacy Verified 02/13/24 12:52
to Review
gabapentin Allergy Severe Pharmacy Verified 02/13/24 12:52
to Review
Penicillins Allergy Intermediate Hives Verified 02/13/24 12:52
Home Medications
�Medication �Instructions �Recorded �Confirmed �Last Taken �Type
Saccharomyces boulardii 250 mg 250 mg PO BID 02/02/24 02/13/24 02/13/24 History
capsule
acetaminophen 500 mg tablet 1,000 mg PO Q6H PRN mild pain 02/02/24 02/13/24 02/01/24 22:00 History
ascorbic acid (vitamin C) 500 mg 500 mg PO DAILY 02/02/24 02/13/24 02/13/24 History
tablet (Vitamin C)
calcium carbonate 600 mg-vitamin 1 tab PO DAILY 02/02/24 02/13/24 02/13/24 History
D3 5 mcg (200 unit) tablet
cranberry fruit concentrate 250 mg 250 mg PO TID 02/02/24 02/13/24 02/13/24 History
chewable tablet
diltiazem HCl 180 mg 180 mg PO DAILY 02/02/24 02/13/24 02/13/24 History
capsule,extended release 24 hr,
controlled
mecobalamin (vitamin B12) 500 mcg 500 mcg PO DAILY 02/02/24 02/13/24 02/13/24 History
chewable tablet
multivitamin 1 tab PO DAILY 02/02/24 02/13/24 02/13/24 History
olive leaf extract 250 mg capsule 250 mg PO DAILY 02/02/24 02/13/24 02/13/24 History
omega-3 964 mg-dha 257 mg-epa 643 1 cap PO DAILY 02/02/24 02/13/24 02/13/24 History
mg-fish oil 1.286 gram capsule
psyllium husk 0.52 gram capsule 0.52 g PO DAILY 02/02/24 02/13/24 02/13/24 History
vibegron 75 mg tablet (Gemtesa) 75 mg PO DAILY 02/02/24 02/13/24 02/13/24 History
aspirin 81 mg chewable tablet 81 mg PO DAILY #1 tab 02/03/24 02/13/24 02/13/24 Rx
(Children's Aspirin)
atorvastatin 10 mg tablet 10 mg PO QPM #90 tabs 02/03/24 02/13/24 02/12/24 Rx
clopidogrel 75 mg tablet 75 mg PO DAILY #90 tabs 02/03/24 02/13/24 02/13/24 Rx
pantoprazole 40 mg tablet,delayed 40 mg PO DAILY #90 tabs 02/03/24 02/13/24 02/13/24 Rx
release
Review of Systems
-
Unable to Obtain full review of systems at this time due to: Other (Per HPI)
Vitals / Labs / Diagnostic Testing
Vital Signs
Temp Pulse Resp BP Pulse Ox
98 F 69 20 154/68 94
02/16/24 08:05 02/16/24 08:05 02/16/24 08:05 02/16/24 09:29 02/16/24 08:05
Lab Data
02/15/24 07:04
02/16/24 07:13
Diagnostic Testing:
Physical Exam
-
Exam:
Well-nourished and well-developed in no apparent distress
HEENT-atraumatic, normocephalic
Neck-supple, no JVD, no bruit
Heart regular with 3/6 systolic murmur
Chest-clear to auscultation, no wheezes, crackles
Back-no tenderness
Abdomen-soft, nontender, nondistended, no hepatosplenomegaly
Extremities-no cyanosis, clubbing, trace lower extremity edema
Integument-intact, no rashes, lesions or ecchymosis
Neurology-alert and oriented, nonfocal motor and sensory exam
Assessment
-
88-year-old female with a history of acute on top of chronic heart failure, CAD, paroxysmal atrial tachycardia and aortic stenosis scheduled for possible TAVR and CT showed new solid right upper lobe nodule-pulmonary consulted for pulmonary nodule
02/16/2024
Pulmonary nodule
Acute on top of chronic heart failure with preserved EF
Severe aortic stenosis for possible TAVR
Recent CAD/drug-eluting stent 01/2024-needs to be on Plavix till 03/04/2024
Mild hyperglycemia
Conditions present prior to admission:
Aortic stenosis-severe.
Acute on top of chronic heart failure preserved EF.
CAD status post PCI 02/02/2024.
Paroxysmal atrial tachycardia.
Sick sinus syndrome.
Hypertension.
Hyperlipidemia.
Obesity.
Spinal stenosis.
Osteoarthritis.
Diverticulosis.
Rectovaginal fistula repair. Wrist surgery. Melanoma removal left shoulder. Sinus surgery. Bilateral knee replacements.
Plan
Incidental pulmonary nodule noted and CT chest personally reviewed
She reports having [facility] CT chest February 2023-she does not recall being told she had a nodule-will attempt to obtain these records for comparison
Cardiology correspondence reviewed-will need to be on Plavix through March 04, 2024
We will obtain CT chest ION in 4 weeks and follow-up in the office to see if she is a robotic bronchoscopic biopsy candidate
I have placed a call into cardiology to see if patient's aortic stenosis needs to be addressed prior to biopsy or if biopsy could be performed before considerationTAVR
I will have my office make appointment at the end of February after CT ION for evaluation
No supplemental oxygen needed
Nebulizers not needed
DVT prophylaxis-on Lovenox
GI prophylaxis-on pantoprazole
Reviewed with nursing, cardiology and primary team
Outpatient pulmonary follow-up at the end of February/early March-office notified to make appointment after CT ION
Diagnostic data:
Chest x-ray 02/13/2024-mild cardiomegaly, mild scarring both lung bases, mild elevation anterior right hemidiaphragm, bilateral osteoarthritis
CT chest cardiac 02/15/2024-right upper lobe superior aspect posteriorly lobulated well-defined masslike opacification measuring 1.5 cm x 1 cm, 4 mm calcified granuloma posterior aspect left upper lung, calcified gallstone
Cardiac catheterization 02/02/2024-successful PCI right coronary artery with placement of drug-eluting stent, severe aortic valve stenosis
Echocardiogram 01/12/2024-EF 55-60%, severe aortic stenosis with mean gradient of 54
Data Reviewed
-
Radiology: Image personally visualized and interpreted and Report reviewed by me
CT Scan: Image personally visualized and interpreted and Report reviewed by me
Medical Tests (Nuc Med, Echo etc): Image personally visualized and interpreted and Report reviewed by me
Labs: Labs reviewed by me
Old Records: Reviewed
Total Time Spent with Patient (in minutes): 65
--- NOTE | 2024-02-16 12:06 | W.PN.HOSP.TC ---
Today's Communication/Plan
-
continue diuretic, appreicate Cards recs
appreciate pulm input on lung mass plan
outpatient TAVR
Assessment / Plan
Assessment / Plan
Assessment:
Acute on chronic HFpEF
Severe
- IV Lasix - requires intensive monitoring of I/Os, weights, Lytes
- continue OFR
- s/p TAVR CT with measurements pending
- CTS and DCA cards following
- obtain records from recent Echo ([facility])
Nonischemic myocardial injury
hx of CAD s/p RCA ABHINAV 02/02/24
- Troponin peaked at 0.046
- Continue Plavix/ASA/Statin
right upper lobe of the lung, there is a lobulated well-defined pulmonary nodule/mass
- pulmonary consulting
- will review prior CTs from [facility]
- likely for CT chest ION outpatient and then plan for biopsy procedure once off Plavix (03/04 is last date)
Left ventricular hypertrophy
LBBB hx
Paroxysmal atrial tachycardia Hx during TAVR cath 02/02/2024
- continue diltiazem 180 mg daily
Tachybradycardia syndrome HX during cath 02/02/2024
Essential HTN
- continue diltiazem 180 mg daily
HLD
- continue statin
GERD
- continue Protonix 40 mg daily
Spinal stenosis
- continue Tylenol as needed
Rectovaginal fistula s/p repair
Chronic urinary frequency
- continue Gemtesa 75 mg daily
Obesity due to excess calorie consumption�BMI 35.9 kg
- Weight loss recommended
- Low-fat diet
DVT prophylaxis: Lovenox
Code: Full
Anticipated Discharge: Within 24 hours
Subjective/Interval History
-
Date of Service: February 16, 2024
denies any new complaints
weights up and down on scales
Objective Data
-
Labs:
Laboratory Results
02/16/24
07:13
Sodium 137
Potassium 4.2
Chloride 98
Carbon Dioxide 25
BUN 34 H
Creatinine 0.9
Glucose 135 H
Calcium 9.8
Vital Signs:
Vital Signs
Temp Pulse Resp BP Pulse Ox
97.6 F 76 19 111/60 91
02/16/24 11:32 02/16/24 11:32 02/16/24 11:32 02/16/24 11:32 02/16/24 11:32
I&O
02/15/24 02/16/24 02/17/24
06:59 06:59 06:59
Intake Total 700 / 700 720 / 720
Output Total 550 / 550 2700 / 2700
Balance 150 / 150 -1979 / -1979
Physical Exam
-
General: No Apparent Distress
HEENT: Normocephalic and Atraumatic
Respiratory: Negative Wheezes
Cardiac: Regular Rhythm, S1/S2 and Murmur
GI: Soft
Musculoskeletal: No Edema
Neuro: AO x 3
Psych: Calm
Data Reviewed
-
Total Time Spent with Patient (in minutes): 51
Labs: Labs Reviewed by me
--- NOTE | 2024-02-16 13:49 | PTCARENOTE ---
pt aaox3. 1 person assist with walker to bsc. room air breath sounds diminshed and mata.
--- NOTE | 2024-02-16 14:22 | CM ---
Addendum entered by Carli Coffman 02/16/24 15:18:
IMM completed.
Original Note:
Patient seen bedside.
Plan: d/c home tomorrow with [facility]
Latasha from [facility] updated.
Fax#
--- NOTE | 2024-02-16 15:11 | W.PN.CARDCBS ---
Addendum entered and electronically signed by Mat Abbott MD 02/16/24 15:57:
I saw and examined the patient.
The Business Liaison Officer's note was reviewed and I agree with the note.
Comment:
GEN: No distress, awake, Ox3
HEENT: supple, anicteric, mmm
LUNGS: CTA, no wheezes/rales
CV: Reg, S1/S2, 2/6 syst LSB, S3+
ABD: soft, BS+, NT/ND
EXT: No edema
NEURO: Gross non-focal
SKIN: No rash
Plan:
Has diuresed relatively well. Will switch to oral Lasix in a.m. 40 mg daily.
Will discuss her case at valve meeting. Will need to discuss timing of ability to stop Plavix after recent RCA stent for workup of lung mass.
Will discuss case with pulmonary.
Likely will be stable for discharge in a.m.
Original Note:
Today's Communication / Plan
-
Ongoing diuresis
Additional comments on timing after case reviewed at TAVR conference
Impression / Plan
-
PCP: Dr. Christophe Mejia
Cardiology: [facility], Dr. Spangler
Impression:
Acute on chronic heart failure with preserved ejection fraction
Severe aortic stenosis
CT of chest with right upper lobe mass
CAD s/p 4 mm Xience to RCA 02/02/24
Hypertension
Hyperlipidemia
Obesity/spinal stenosis
Paroxysmal atrial tachycardia/left bundle branch
Sick sinus syndrome
Osteoarthritis
Diverticular disease
01/12/24 Echo: LVEF 55 to 60%, severe aortic stenosis with a mean gradient of 54. 40% diagonal
02/02/24: [facility]: PCI of RCA, LVEDP 27, mean gradient 59 mmHg
Plan:
-Patient came to [facility] 02/13/24 with acute HF and has diuresed about 12 lbs since admission with Lasix 40 mg IV daily. Patient was not taking a loop diuretic prior to admission. Cre is stable at 0.9.
-Pulmonology consult from 02/16/24 reviewed and patient has a lung nodule that may or may not be new and Pulm is recommending an outpatient CT chest ION in 4 weeks and pending those results she might be recommended a bronchoscopic biopsy.
-From a cardiac standpoint patient had RCA PCI on 02/02/24 as part of TAVR work-up and should complete minimum 4 weeks uninterrupted DAPT.
-Patient's case will be reviewed at upcoming TAVR conference this week to help decide timing including if bronchoscopic biopsy should happen before or after possible TAVR.
-Troponin peaked at 0.046 and will be managed as a nonischemic myocardial injury Troponin elevation in the setting of acute HF.
HPI: 88-year-old female with past medical history of severe aortic stenosis, coronary artery status post RCA PCI 02/02/2024, spinal stenosis, hypertension, left bundle branch block, hyperlipidemia, and diverticular disease presents to [facility] with shortness of breath. She states she has baseline shortness of breath and over the past several weeks she has noticed increased dyspnea on exertion and last night she had marked orthopnea where she was unable to lie flat. She feels
bloated and has gained 5 to 6 pounds. She denies any chest tightness or syncope. Her energy is poor. She walks with a walker and her breathing has significantly worsened. She has no falls. She has no bleeding. She has been compliant with her
medication. She does not take diuretics or Lasix. She follows with [facility] cardiology Dr. Spangler. She has no palpitations or syncope.
Progress Note - [employer]
Subjective
Date of Service: February 16, 2024
Feeling better
Objective
Labs:
02/15/24 07:04
02/16/24 07:13
Labs
Hgb 13.8 g/dL (12.0-16.0) 02/15/24 07:04
Hct 38.6 % (37.0-47.0) 02/15/24 07:04
Plt Count 151 10^3/uL (130-400) 02/15/24 07:04
Sodium 137 mmol/L (135-145) 02/16/24 07:13
Potassium 4.2 mmol/L (3.5-5.1) 02/16/24 07:13
BUN 34 mg/dl (7-17) H 02/16/24 07:13
Creatinine 0.9 mg/dL (0.6-1.0) 02/16/24 07:13
Glucose 135 mg/dl (70-99) H 02/16/24 07:13
Troponins
02/13/24 02/13/24 02/14/24
15:14 21:36 02:48
Troponin I 0.042 H* 0.046 H* 0.045 H*
Vital Signs and I&O:
Vital Signs
Temp Pulse Resp BP Pulse Ox
97.6 F 76 19 111/60 91
02/16/24 11:32 02/16/24 11:32 02/16/24 11:32 02/16/24 11:32 02/16/24 11:32
Vital Signs
Temp Pulse Resp BP Pulse Ox
97.6 F 76 19 111/60 91
02/16/24 11:32 02/16/24 11:32 02/16/24 11:32 02/16/24 11:32 02/16/24 11:32
Intake & Output
02/14/24 02/15/24 02/16/24 02/17/24
06:59 06:59 06:59 06:59
Intake Total 700 / 700 720 / 720
Output Total 1625 / 1625 550 / 550 2700 / 2700
Balance -1625 / -1625 150 / 150 -1979 /
Physical Exam
Physical Exam
GEN: AAOx3
HEENT: mmm
LUNGS: No audible wheeze
CV: SR on tele
ABD: ND
EXT: No edema
NEURO: Gross non-focal
SKIN: No rash
[2024-02-16] MEDS: LIPITOR 10 MG PO (18:28)
[2024-02-16] MEDS: LOVENOX 40 MG SC (18:28)
[2024-02-17 03:21] VITALS: BP 103/72
[2024-02-17 05:33] VITALS: BMI 37.4
[2024-02-17 07:00] VITALS: BP 126/83
[2024-02-17] MEDS: FLORASTOR 250 MG PO (08:30)
[2024-02-17] MEDS: OSCAL 500 + D 600 MG PO (08:30)
[2024-02-17] MEDS: THERAGRAN 1 TABLET PO (08:30)
[2024-02-17] MEDS: MAGNESIUM OXIDE 500 MG PO (08:30)
[2024-02-17] MEDS: PROTONIX 40 MG PO (08:30)
[2024-02-17] MEDS: PLAVIX 75 MG PO (08:30)
[2024-02-17] MEDS: NON-FORMULARY ITEM 75 MG PO (08:30)
[2024-02-17] MEDS: LOW STRENGTH ASPIRIN 81 MG PO (08:30)
[2024-02-17] MEDS: VITAMIN C 500 MG PO (08:31)
[2024-02-17] MEDS: KCL 20 MEQ PO (08:31)
[2024-02-17] MEDS: VITAMIN B-12 500 MCG PO (08:32)
[2024-02-17] MEDS: LASIX 40 MG PO (08:32)
[2024-02-17 08:59] LABS: Blood Urea Nitrogen 36 mg/dl (7-17); Calcium 9.4 mg/dl (8.4-10.2); Carbon Dioxide 29 mmol/L (22-30); Chloride 98 mmol/L (98-107); Estimated Creatinine Clearance 40 ml/min; Glucose 139 mg/dl (70-99); Magnesium 1.8 mg/dl (1.6-2.3); Potassium 4.3 mmol/L (3.5-5.1); Sodium 138 mmol/L (135-145); eGFR > 60.00
--- NOTE | 2024-02-17 09:29 | W.PN.PUL.V3 ---
Today's Communication / Plan
-
overweight CT chest February 2023 from [place] for comparison.
Tentatively recommend outpatient CT chest ION and pulmonary evaluation in the next 4-6 weeks
Assessment
-
88-year-old female with a history of acute on top of chronic heart failure, CAD, paroxysmal atrial tachycardia and aortic stenosis scheduled for possible TAVR and CT showed new solid right upper lobe nodule-pulmonary consulted for pulmonary nodule
02/16/2024
Pulmonary nodule
Acute on top of chronic heart failure with preserved EF
Severe aortic stenosis for possible TAVR
Recent CAD/drug-eluting stent 01/2024-needs to be on Plavix till 03/04/2024
Mild hyperglycemia
Conditions present prior to admission:
Aortic stenosis-severe.
Acute on top of chronic heart failure preserved EF.
CAD status post PCI 02/02/2024.
Paroxysmal atrial tachycardia.
Sick sinus syndrome.
Hypertension.
Hyperlipidemia.
Obesity.
Spinal stenosis.
Osteoarthritis.
Diverticulosis.
Rectovaginal fistula repair. Wrist surgery. Melanoma removal left shoulder. Sinus surgery. Bilateral knee replacements.
Plan
Incidental pulmonary nodule noted and CT chest personally reviewed
She reports having [facility] CT chest February 2023-she does not recall being told she had a nodule-will attempt to obtain these records for comparison
Patient also reports that she's had 'stable nodule on the right side for years.' Unclear if she is referring to calcified granuloma or newly diagnosed noncalcified right upper lobe nodule
[facility] CT chest February 2023 will be reviewed and compared- results still not available.
Cardiology correspondence reviewed-will need to be on Plavix through March 04, 2024
We will obtain CT chest ION in 4 weeks and follow-up in the office to see if she is a robotic bronchoscopic biopsy candidate
We will work with cardiology and CT surgery in regards to timing and workup of pulmonary nodule in light of recent stent and need for possible TAVR
We will make appointment at the end of February/march after CT ION for evaluation
No supplemental oxygen needed
Nebulizers not needed
DVT prophylaxis-on Lovenox
GI prophylaxis-on pantoprazole
Reviewed with nursing, cardiology and primary team
Outpatient pulmonary follow-up at the end of February/march-office notified to make appointment after CT ION
Diagnostic data:
Chest x-ray 02/13/2024-mild cardiomegaly, mild scarring both lung bases, mild elevation anterior right hemidiaphragm, bilateral osteoarthritis
CT chest cardiac 02/15/2024-right upper lobe superior aspect posteriorly lobulated well-defined masslike opacification measuring 1.5 cm x 1 cm, 4 mm calcified granuloma posterior aspect left upper lung, calcified gallstone
Cardiac catheterization 02/02/2024-successful PCI right coronary artery with placement of drug-eluting stent, severe aortic valve stenosis
Echocardiogram 01/12/2024-EF 55-60%, severe aortic stenosis with mean gradient of 54
Subjective Data
-
Date of Service:
Date of Service: February 17, 2024
Chief Complaint: Pulmonary Follow Up and Dyspnea Follow Up
Subjective:
Feels 'okay', no complaints shortness of breath, chest pain, productive cough
Review of Systems
General: Other ( per HPI)
Objective Data
Data Reviewed
Vital Signs / I&O:
Vital Signs
Temp Pulse Resp BP Pulse Ox
97.6 F 84 20 126/83 96
02/17/24 07:00 02/17/24 07:00 02/17/24 07:00 02/17/24 07:00 02/17/24 07:00
Intake and Output
02/16/24 02/17/24 02/18/24
06:59 06:59 06:59
Intake Total 720 / 720 360 / 360
Output Total 2700 / 2700 1200 / 1200 275 / 275
Balance -1979 / -1980 -840 / -840 -275 / -275
SaO2: 96
Physical Exam
General: Respiratory Distress and Comfortable
HEENT: Normocephalic and Moist Mucous Membranes
Cardiovascular: Regular Rhythm
Respiratory: Wheeze (nn), Crackles (n), Rhonchi, Non-Labored Respirations, Accessory Resp Muscle Use (n) and Stridor (n)
GI: Soft and Non Distended
Neurology: Awake, Alert and No Motor Deficits
Skin: Warm, Good Color, Cyanosis (n), Jaundice (n) and Rash (n)
Labs/Micro/Reports
Lab Data
02/15/24 07:04
02/17/24 07:46
--- NOTE | 2024-02-17 09:38 | W.PN.HOSP.TC ---
Today's Communication/Plan
-
dc home/VN
Assessment / Plan
Assessment / Plan
Assessment:
Acute on chronic HFpEF
Severe
- s/p IV Lasix course, now on Lasix 40mg daily
- continue OFR
- s/p TAVR CT with measurements pending
- CTS and DCA cards following
- obtain records from recent Echo ([facility])
- TAVR team will discuss at their next meeting.
Nonischemic myocardial injury
hx of CAD s/p RCA ABHINAV 02/02/24
- Troponin peaked at 0.046
- Continue Plavix/ASA/Statin
right upper lobe of the lung, there is a lobulated well-defined pulmonary nodule/mass
- known mass from prior CT @ [facility]
- plan is for CT chest ION outpatient and then plan for biopsy procedure once off Plavix (03/04 is last date)
Left ventricular hypertrophy
LBBB hx
Paroxysmal atrial tachycardia Hx during TAVR cath 02/02/2024
- continue diltiazem 180 mg daily
Tachybradycardia syndrome HX during cath 02/02/2024
Essential HTN
- continue diltiazem 180 mg daily
HLD
- continue statin
GERD
- continue Protonix 40 mg daily
Spinal stenosis
- continue Tylenol as needed
Rectovaginal fistula s/p repair
Chronic urinary frequency
- continue Gemtesa 75 mg daily
Obesity due to excess calorie consumption�BMI 35.9 kg
- Weight loss recommended
- Low-fat diet
DVT prophylaxis: Lovenox
Code: Full
More than 30 minutes spent in discharge including
Final examination of the patient
Summarizing hospital stay
Instructions for continuing care to all relevant caregivers
Preparation of discharge records, prescriptions, and referral forms
Total time spent (in minutes): 44
Anticipated Discharge: Today
Subjective/Interval History
-
Date of Service: February 17, 2024
denies any new complaints
Objective Data
-
Labs:
Laboratory Results
02/17/24
07:46
Sodium 138
Potassium 4.3
Chloride 98
Carbon Dioxide 29
BUN 36 H
Creatinine 0.9
Glucose 139 H
Calcium 9.4
Vital Signs:
Vital Signs
Temp Pulse Resp BP Pulse Ox
97.6 F 84 20 126/83 96
02/17/24 07:00 02/17/24 07:00 02/17/24 07:00 02/17/24 07:00 02/17/24 09:29
I&O
02/16/24 02/17/24 02/18/24
06:59 06:59 06:59
Intake Total 720 / 720 360 / 360
Output Total 2700 / 2700 1200 / 1200 275 / 275
Balance -1980 / -1980 -840 / -840 -275 / -275
Physical Exam
-
General: No Apparent Distress
HEENT: Normocephalic
Respiratory: Negative Wheezes
Cardiac: Regular Rhythm, S1/S2 and Murmur
GI: Soft
Genito-urinary: No Costovertebral Tender
Neuro: AO x 3
Psych: Calm
Data Reviewed
-
Total Time Spent with Patient (in minutes): 44
Labs: Labs Reviewed by me
--- NOTE | 2024-02-17 09:44 | W.DS.TRANS ---
DC Summary - [employer]
-
Discharge Instructions:
Sleep Apnea Risk Intermediate
Discharge Diagnosis/Procedures acute CHF, severe , lung mass
Diet 2 Gram Sodium,Restrict fluids to 48 oz,Low
Cholesterol
Activity As tolerated
Other Services VN
Instructions:
Stand-Alone Forms:
Changes to Home Medications: Yes
Discharge Medications:
DC Medications w/original date entered in [employer]
Saccharomyces boulardii 250 mg capsule 250 mg PO BID 02/02/24
acetaminophen 500 mg tablet 1,000 mg PO Q6H PRN mild pain 02/02/24
ascorbic acid (vitamin C) 500 mg tablet (Vitamin C) 500 mg PO DAILY 02/02/24
calcium carbonate 600 mg-vitamin D3 5 mcg (200 unit) tablet 1 tab PO DAILY 02/02/24
cranberry fruit concentrate 250 mg chewable tablet 250 mg PO TID 02/02/24
mecobalamin (vitamin B12) 500 mcg chewable tablet 500 mcg PO DAILY 02/02/24
multivitamin 1 tab PO DAILY 02/02/24
olive leaf extract 250 mg capsule 250 mg PO DAILY 02/02/24
omega-3 964 mg-dha 257 mg-epa 643 mg-fish oil 1.286 gram capsule 1 cap PO DAILY 02/02/24
psyllium husk 0.52 gram capsule 0.52 g PO DAILY 02/02/24
vibegron 75 mg tablet (Gemtesa) 75 mg PO DAILY 02/02/24
aspirin 81 mg chewable tablet (Children's Aspirin) 81 mg PO DAILY #1 tab 02/03/24
atorvastatin 10 mg tablet 10 mg PO QPM #90 tabs 02/03/24
clopidogrel 75 mg tablet 75 mg PO DAILY #90 tabs 02/03/24
pantoprazole 40 mg tablet,delayed release 40 mg PO DAILY #90 tabs 02/03/24
furosemide 40 mg tablet 40 mg PO DAILY #30 tabs 02/17/24
potassium chloride 20 mEq tablet,extended release(part/cryst) 20 meq PO DAILY #30 tabs 02/17/24
Home Medication Changes
Diltazem stopped
Pending Results: No
Total time spent discharging patient (in min): 44
[2024-02-17 11:00] VITALS: BP 94/55
--- NOTE | 2024-02-17 11:02 | CM ---
Patient for d/c home today.
Plan: Home with [facility]
Fax#
== END 2024-02-17 13:43 | disposition home health service (06) | DRG 291 ==
LOC: 4 WEST ACU 19:36
PROVIDERS: Clinical Nurse Specialist Family Health; Nurse Practitioner; ADMITTING PHYSICIAN Internal Medicine; ATTENDING PHYSICIAN Internal Medicine; CONSULT PHYSICIAN Internal Medicine Cardiovascular Disease; CONSULT PHYSICIAN Internal Medicine Critical Care Medicine; CONSULT PHYSICIAN Thoracic Surgery (Cardiothoracic Vascular Surgery); EMERGENCY PHYSICIAN Emergency Medicine; FAMILY PHYSICIAN Family Medicine
DX: I11.0 Hypertensive heart disease with heart failure (principal); I50.33 Acute on chronic diastolic (congestive) heart failure; I47.19 Other supraventricular tachycardia; I35.0 Nonrheumatic aortic (valve) stenosis; I5A Non-ischemic myocardial injury (non-traumatic); I44.7 Left bundle-branch block, unspecified; E78.5 Hyperlipidemia, unspecified; K21.9 Gastro-esophageal reflux disease without esophagitis; M48.00 Spinal stenosis, site unspecified; R35.0 Frequency of micturition; E66.01 Morbid (severe) obesity due to excess calories; R91.1 Solitary pulmonary nodule; R73.9 Hyperglycemia, unspecified; G47.33 Obstructive sleep apnea (adult) (pediatric); M19.90 Unspecified osteoarthritis, unspecified site; E83.42 Hypomagnesemia; I49.5 Sick sinus syndrome; I25.10 Atherosclerotic heart disease of native coronary artery without angina pectoris; Z96.653 Presence of artificial knee joint, bilateral; Z95.5 Presence of coronary angioplasty implant and graft; Z68.37 Body mass index [BMI] 37.0-37.9, adult; Z85.820 Personal history of malignant melanoma of skin; Z88.0 Allergy status to penicillin; Z88.8 Allergy status to other drugs, medicaments and biological substances; Z79.02 Long term (current) use of antithrombotics/antiplatelets; Z82.49 Family history of ischemic heart disease and other diseases of the circulatory system
CPT/HCPCS: 71046; 74174; 75572; 80048; 80053; 83735; 83880; 84484; 85025; 93005; 96374; 97166; 97530; 99285; Q9967

== ENCOUNTER 2024-03-09 09:25 | Inpatient (IN) | payer OTHER, SELFPAY ==
--- NOTE | 2024-02-28 07:49 | HPS.HSE ---
Family Physician
-
Family Physician: Christophe Mejia, DO
Chief Complaint
-
Fatigue and MATA
History of Present Illness
Patient is a very pleasant 88yo female with known history aortic stenosis. Last year she underwent surgery for a rectovaginal fistula and was slow to recover. She is now ambulating independently with a walker and living with her son in an in-law
suite. She has noted increased fatigue and more mata over the last couple months. She has started using two pillows to prop up on for sleep. She denies, chest pain, palpitations, dizziness. She does have a known history of atrial tachycardia. She has
noted occasional edema in her left ankle. Her most recent echocardiogram on 01/12/2024 was notable for AV PG/M.4/54.6, EF 55-60%. On 02/02/2024 she underwent PCI of her RCA.
Ms Te[facility]. She will take her aspirin and plavix [employer]. Reviewed risks of the procedure including ppm, stroke and vascular injury. Informed patient she will receive a call from the heart team on
the Wednesday before TAVR to confirm time and location of arrival. Allowed for and answered questions
Medical History
Past Medical History
Past Medical History: Reports Arrhythmia (PAT), CAD (ABHINAV to RCA), HTN, Valvular Disease (aortic stenosis) and Other (LBBB, hyperlipidemia, spinal stenosis, arthritis, melanoma, PEPITO, osteoartiritis)
Past Surgical History: Reports Appendectomy, Gynocological (hysterectomy), Orthopedic (bilateral TKR, TKA, carpal tunnel release) and Tonsilectomy
Additional Past Surgical History:
rectovaginal fistula repair with a prolonged recovery, right inguinal hernia repair, melanoma excision (L) shoulder, bilateral cataract surgery, (R) chest tube placement (age 3) d/t PNA/ empyema
Social History
Tobacco: Non-smoker
Alcohol: None
Drug: None
Personal:
Living: With Family (lives with son in an in-law suite)
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
Family History
Family History: Cancer
Allergies / Home Medications
Allergies reflects when Allergies were last updated in [facility].
Home Medications with original date entered in [facility]
�Aspirin 81mg daily
�Vitamin C daily
�Atorvastatin 10mg daily
�Clopidogrel 75mg daily
�Calcium carbonate + Vitamin D3 600mg-5mcg daily
�Cranberry Fruit concentrate 250mg TID
�Diltiazem 180mg daily
�Vitamin B12 500mcg daily
�MVI 1 daily
�[place] leaf extract 250mg daily
�Fish oil daily
�Oregano oil 1500mg daily
�Psyllium husk 0.52grams daily
�Probiotic 250mg BID
�Vibegron 75mg daily
Allergy/Medication List:
PCN (Hives), albuterol, amitriptyline, gabapentin
Review of Systems
-
History Source: Patient
A 12 point ROS was completed and negative except as noted: Yes
Constitutional: Reports Fatigue
Respiratory: Reports Other (MATA)
Physical Exam
Physical Exam
General: No Apparent Distress and Morbidly Obese
HEENT: NormoCephalic and Moist mucous membranes
Respiratory: Clear
Cardiac: Regular Rhythm and Murmur (IV/ OLIVIA)
Breast: Deferred by me
GI: Soft and Non Tender
Rectal: Deferred by Provider
Genito-urinary: Deferred by me
Skin: Warm and Dry
Neuro: Awake, Alert, Oriented and AO x 3
Psych: Calm
Data Reviewed
-
Diagnostic Radiology: Report Reviewed by me
CT Scan: Report Reviewed by me and Discussed with Physician (TAVR CT scan reviewed with the heart team)
Medical Tests (Nuc Med, Echo, EKG etc): Report Reviewed by me and Discussed with Physician (Echocardiogram and cardiac catheterization reviewed with the heart team)
Lab Data: Labs Reviewed by me
Old Records: Reviewed (Dr. Spangler's office note. In patient notes from previous admission)
Impression/Plan
-
IMPRESSION/PLAN:
Aortic stenosis
TF TAVR planned for 03/09/2024 with Drs. Torres and Marce utilizing a 26mm Evolut via (R) TF access
POD #1/#30 f/u echocardiogram
Continue aspirin and plavix
Cardiac rehab consult
LBBB-notify EP
Lab Results
-
Lab Results
WBC 10.9 10^3/uL (4.8-10.8) H 02/28/24 13:23
RBC 4.02 10^6/uL (4.20-5.40) L 02/28/24 13:23
Hgb 13.5 g/dL (12.0-16.0) 02/28/24 13:23
Hct 36.6 % (37.0-47.0) L 02/28/24 13:23
MCV 91.0 fL (81.0-99.0) 02/28/24 13:23
MCH 33.6 pg (27.0-31.0) H 02/28/24 13:23
MCHC 36.9 g/dL (33.0-37.0) 02/28/24 13:23
RDW 13.2 % (11.5-14.5) 02/28/24 13:23
Plt Count 169 10^3/uL (130-400) 02/28/24 13:23
MPV 11.0 fL (7.4-10.4) H 02/28/24 13:23
Abs Immat Gran (auto) 0.1 10^3/uL (0-0.05) H 02/28/24 13:23
Absolute Neuts (auto) 8.0 10^3/uL (1.4-6.5) H 02/28/24 13:23
Absolute Lymphs (auto) 1.3 10^3/uL (1.2-3.4) 02/28/24 13:23
Absolute Monos (auto) 1.5 10^3/uL (0.1-0.6) H 02/28/24 13:23
Absolute Eos (auto) 0.1 10^3/uL (0-0.7) 02/28/24 13:23
Absolute Basos (auto) 0.0 10^3/uL (0-0.2) 02/28/24 13:23
Immature Gran % 0.6 % (0-0.5) H 02/28/24 13:23
Neutrophils % 73.1 % (42.2-75.2) 02/28/24 13:23
Lymphocytes % 12.1 % (20.5-51.1) L 02/28/24 13:23
Monocytes % 13.3 % (1.7-9.3) H 02/28/24 13:23
Eosinophils % 0.5 % (0-6) 02/28/24 13:23
Basophils % 0.4 % (0-2) 02/28/24 13:23
Nucleated RBC % 0 % 02/28/24 13:23
PT 14.0 Sec (11.4-14.6) 02/28/24 13:23
INR 1.10 02/28/24 13:23
APTT 32.4 Sec (23.4-35.0) 02/28/24 13:23
Sodium 139 mmol/L (135-145) 02/28/24 13:23
Potassium 4.2 mmol/L (3.5-5.1) 02/28/24 13:23
Chloride 101 mmol/L (98-107) 02/28/24 13:23
Carbon Dioxide 26 mmol/L (22-30) 02/28/24 13:23
BUN 32 mg/dl (7-17) H 02/28/24 13:23
Creatinine 0.9 mg/dL (0.6-1.0) 02/28/24 13:23
Estimated Creat Clear 37 ml/min 02/28/24 13:23
eGFR > 60.00 02/28/24 13:23
Glucose 113 mg/dl (70-99) H 02/28/24 13:23
Calcium 9.4 mg/dl (8.4-10.2) 02/28/24 13:23
Total Bilirubin 0.5 mg/dl (0.2-1.3) 02/28/24 13:23
Direct Bilirubin 0.3 mg/dl (0.0-0.4) 02/28/24 13:23
AST 33 U/L (14-36) 02/28/24 13:23
ALT 22 U/L (0-35) 02/28/24 13:23
Alkaline Phosphatase 86 U/L (38-126) 02/28/24 13:23
Bhz-O-Ovcfqzeetkg Pept 1650 pg/ml 02/28/24 13:23
Total Protein 7.6 g/dl (6.3-8.2) 02/28/24 13:23
Albumin 4.3 g/dl (3.5-5.0) 02/28/24 13:23
[2024-02-28 13:36] VITALS: BMI 44.6
[2024-02-28 14:11] LABS: % Basophils 0.4 % (0-2); % Eosinophils 0.5 % (0-6); % Immature Granulocytes 0.6 % (0-0.5); % Lymphocytes 12.1 % (20.5-51.1); % Monocytes 13.3 % (1.7-9.3); % Neutrophils 73.1 % (42.2-75.2); Absolute Eosinophils 0.1 10^3/uL (0-0.7); Absolute Immature Granulocytes 0.1 10^3/uL (0-0.05); Absolute Lymphocytes 1.3 10^3/uL (1.2-3.4); Absolute Monocytes 1.5 10^3/uL (0.1-0.6); Hematocrit 36.6 % (37.0-47.0); Hemoglobin 13.5 g/dL (12.0-16.0); Mean Corp Hgb Conc. 36.9 g/dL (33.0-37.0); Mean Corpuscular Hgb 33.6 pg (27.0-31.0); Nucleated Red Blood Cells % 0 %; Platelet Count 169 10^3/uL (130-400); Red Blood Cell Count 4.02 10^6/uL (4.20-5.40); Red Cell Dist. Width 13.2 % (11.5-14.5); White Blood Cell Count 10.9 10^3/uL (4.8-10.8)
[2024-02-28 14:19] LABS: APTT 32.4 Sec (23.4-35.0)
[2024-02-28 14:23] LABS: ALT (SGPT) 22 U/L (0-35); AST (SGOT) 33 U/L (14-36); Albumin 4.3 g/dl (3.5-5.0); Alkaline Phosphatase 86 U/L (38-126); Blood Urea Nitrogen 32 mg/dl (7-17); Calcium 9.4 mg/dl (8.4-10.2); Carbon Dioxide 26 mmol/L (22-30); Chloride 101 mmol/L (98-107); Direct Bilirubin 0.3 mg/dl (0.0-0.4); Estimated Creatinine Clearance 37 ml/min; Glucose 113 mg/dl (70-99); Potassium 4.2 mmol/L (3.5-5.1); Sodium 139 mmol/L (135-145); Total Bilirubin 0.5 mg/dl (0.2-1.3); Total Protein 7.6 g/dl (6.3-8.2); eGFR > 60.00
[2024-02-28 14:29] LABS: NT-proBNP 1650 pg/ml
[2024-02-28 14:41] LABS: Urine Albumin Negative (Neg - Trace); Urine Bilirubin Negative (Negative); Urine Character Clear (Clear); Urine Color Yellow; Urine Glucose Negative (Negative); Urine Ketone Negative (Negative); Urine Leukocyte 1+ (Negative); Urine Nitrite Negative (Negative); Urine Occult Blood Negative (Negative); Urine Urobilinogen Negative (Neg - 1+)
[2024-02-28 15:18] LABS: Glycohemoglobin (HgbA1c) 6.1 % (4.0-5.6)
[2024-02-28 15:23] LABS: Urine Red Blood Cell 0-2 /HPF (0-2)
--- NOTE | 2024-02-28 16:00 | CM ---
spoke to pt in PAT's, we discussed preop TAVR teaching including lifting and driving restrictions. she tells me she is prev indep, lives in an inlaw suite on her son and dil's home. it is a first floor set up with a ramp, she uses a walker all the
time. pt had difficulty moving from the wc to toilet and used grad bars to move herself over. her son dropped her off and had her walker in the car. she is current with [facility] . pt has the TAVR educ book, soap and instructions. cm role explained
and all questions answered.
[2024-03-09] VITALS (16 sets, daily range): BP systolic 108–156; BP diastolic 53–82; BMI 44.6
--- NOTE | 2024-03-09 11:49 | W.CVOR.SURPR ---
CVOR Surgeon Immed Pre Op
-
I have examined this patient prior to performance of the scheduled procedure.
The patient's condition is unchanged from the time of the dictated/written History and
Physical and the patient is able to undergo the scheduled procedure.
TF TAVR
Ok for CPR/Shocks/Meds
Ok for CPB and Sternotomy if surgeon deems it salvageable
[2024-03-09] MEDS: VANCOCIN 300 MG IV (12:06)
[2024-03-09] MEDS: VANCOCIN 300 ML IV (12:06)
[2024-03-09 13:50] LABS: ACT-LR - POC 297 Seconds (116-155)
[2024-03-09 14:16] LABS: ACT-LR - POC 302 Seconds (116-155)
--- NOTE | 2024-03-09 14:23 | W.PN.CT.SURG ---
CT Surgery Operative Note
-
OPERATIVE REPORT
Preoperative Diagnosis: Severe aortic valve stenosis, symptomatic
Postoperative Diagnosis: Same
Procedure(s) Performed: Right trans femoral TAVR with a 26 mm Medtronic Evolut FX device with preballoon valvuloplasty using a 20 mm balloon
Date of Procedure: 03/09/2024
Comorbidities:
1. Severe symptomatic aortic stenosis
2. Acute on chronic systolic and diastolic congestive heart failure, LVEDP pre-TAVR was 30 mmHg
3. Hypertension
4. Hyperlipidemia
5. Left bundle branch block, pre-existing
6. GERD
7. Spinal stenosis
8. Morbidly obese with a BMI of 44
Cardiac Surgeon: Hesham Torres MD, MS
Home Health Manager: Agustin Zheng MD
Anesthesia: Conscious Sedation, Local
EBL: 100cc
Products: none
Implant: Medtronic Evolut FX 26mm TAVR Valve SN: [id number]
Indication(s) for Procedures: 88-year-old female with severe aortic stenosis. Symptomatic. CT-TAVR protocol revealed acceptable anatomy for a self-expanding TAVR valve.
Start time: 1317hrs
Deployment time: 1357hrs
End time: 1416hrs
Radiation Dose (mGy): 1102.26
DAP (cm2.Gy): 125.14
Fluoroscopy time (minutes): 12.8
Contrast volume (ml): 137
TAVR gradient (mmHg): 9mmHg
Heparin Dose: 7000units
Protamine Dose: 30mg
Final Valve Positioninmm:2mm
Findings: Preoperative LVEF was 60% and was 60% following TAVR without inotropic support. Function was overall normal without regional wall motion abnormalities or dyskinesia. The aortic valve was well seated with only trace to mild PVL. The patient
did require pacing postoperative with a junctional escape rhythm, the TPW was left in place. There was successful placement of 26mm Evolut FX TAVR valve without acute complications. Her LVEDP pre-TAVR deployment was approximate 30 mmHg indicating
acute on chronic systolic and diastolic congestive heart failure with volume overload. Lasix will be given in the ICU. Due to her severely elevated pre-TAVR gradients, 20 mm balloon was used for pre-TAVR balloon valvuloplasty.
Access:
1. Device -right common femoral artery, perclose x 2
2. Pigtail -left common femoral artery + 6Fr angioseal
3. Transvenous Pacer -left common femoral vein
Description of Procedure: The patient was taken to the flower shop laborer/designer. Their identity and procedure to be performed were verified and they were positioned supine on the flower shop laborer/designer table. Induction via conscious sedation with local analgesia. The patient was
then prepped and draped from chin to thigh in a sterile fashion. A preoperative time-out was performed with all members of the team present. Using fluoroscopy, bilateral femoral heads and their margins were identified. Arterial and venous access
were done with a micropuncture needle with Seldinger technique. Test pacing revealed capture with excellent threshold. Angiography confirmed proper puncture site and femoral artery integrity. Two Per-Close devices were used on the TAVR side. An AL1
catheter was used to deliver a extrastiff wire and insertion of the working sheath. An AL1 catheter with a straight stiff wire was used to access the LV. LVEDP was measured here. The valve was prepped and mounted on to the device carrier. An ACT
of >250 was achieved. We verified x 3 under fluoroscopy that the valve was mounted correctly with paddles in appropriate position. A 20 mm balloon was then prepared under rapid pacing was used to perform a valvuloplasty. We than set our parameters
to achieve a co-planar view with the pigtail positioned in the NCC. We then exchanged the 14 [place] sheath for the inline sheath which we advanced into the descending thoracic aorta and over the arch into the root and positioned across the aortic
valve. Contrast fluoroscopy was used to visualize the prosthesis across the valve. We performed a quick pre-deployment time out. We verified positioning based on the pigtail and gentle contrast puffs. The valve was slowly deployed to just before
annular contact. We paused here and verified positioning in our cusp overlap view. The pacer was turned on and we continued deployment to annular contact. At this point the valve was functioning and pacing was slowed. We then turned LULU in order to
view the left coronary cusp and found that we were a little bit shallow and so in this view, under rapid pacing at 140 bpm partially recaptured advance the device slightly forward and we slowly continued to deploy the valve until the crowns and
paddles were free from the device. The deployment device was withdrawn into the descending thoracic aorta while maintaining wire access across the valve. A transthoracic echocardiogram was performed . The pigtail was re-positioned at the level of
the crown of the valve and angiography revealed excellent placement and seating of the valve at the annulus. The device was removed from the groin as we cinched down the perclose devices while maintaining wire access. There was acceptable
hemostasis. The pigtail was repositioned into the descending/abdominal and runoff aortogram was performed. There was no significant stenosis or dissection of the bilateral iliofemoral systems with excellent runoff to the SFAs. All wires were removed
and perclose snugged and cut. There was acceptable hemostasis of bilateral groins. The temporary venous pacing wire was left in place and sewn to secure it as she was in complete heart block with junctional escape rhythm. Despite this, she
remained hemodynamically stable with a heart rate in the 50s.
All instrument, sponge, and needle counts were confirmed to be correct x 2 at the end of the operation. The patient was transferred to the cardiac intensive care unit in stable condition.
I, Dr. Hesham Torres, was present, scrubbed for, and performed all critical elements of this procedure.
Hesham Torres MD, MS
Cardiothoracic Surgeon
[facility]
This operative dictation was created using the MOOI dictation system. Please excuse any grammatical, typographical, or 'sound alike' errors
--- NOTE | 2024-03-09 14:28 | ITS.CL.TAVR ---
Video Tape Duplicator - TAVR Report
TAVR PRocedure
Procedure Report:
TRANSCATHETER AORTIC VALVE REPLACEMENT
Date of Procedure: March 09, 2024
Referring: Dr. Yusef Spangler
Operators: Drs. Agustin Zheng and Hesham Torres
PROCEDURE PERFORMED:
1. Successful placement of 26 mm Medtronic Evolut Pro+ valve via right femoral artery.
PREPROCEDURE NYHA CLASS: 3
DESCRIPTION OF PROCEDURE: The patient was referred for assessment of severe symptomatic aortic stenosis and following a comprehensive evaluation it was felt that transcatheter aortic valve replacement (TAVR) would be the most appropriate treatment.
Informed consent was obtained prior to the procedure. A 'time-out' was called and the procedural plan was verbally confirmed by anesthesia, surgery, perfusion, and recyclable materials sorter staff.
Arterial and venous access were obtained in the left common femoral artery and vein using a micropuncture technique and 6 Fr. sheaths were inserted. Ultrasound guidance was then used to obtain arterial access in the right common femoral artery and
a 6 Fr. sheath was inserted. Angiography was performed and the arteriotomy site appeared appropriately positioned for preclosure using two Perclose devices. An 8 Fr. sheath was then reinserted into the right common femoral arterial access site.
Attention was then turned back to the left common femoral access site. A 5 Fr. transvenous pacing wire was advanced to the right ventricular apex where excellent pacing thresholds were obtained. A 5 Fr. pigtail catheter was then advanced to the
proximal ascending aorta / noncoronary cusp where angiography was performed to define the the cusp overlap view isolating the non-coronary cusp with overlap of the right and left coronary cusps. The cusp overlap view was PRUITT 4 / CAU 35.
A Double-curve Lunderquist 0.035' wire was advanced through an AL1 diagnostic catheter and positioned in the proximal descending thoracic aorta. The right common femoral arteriotomy tract was dilated and followed by placement of a 14 Fr / 13 cm
Cook sheath.
An AL1 catheter was then advanced over the Double-curve Lunderquist wire which was allowed to drift across the aortic arch. The AL1 catheter was positioned above the aortic valve. The Lunderquist wire was removed and the stenotic aortic valve was
crossed using a 0.035' Straight tip wire. The AL1 was then advanced to the mid left ventricle where the LVEDP measured 28 mmHg. A long J-wire was advanced to the left ventricular apex and was followed to the apex with an angled pig-tail catheter.
The Double Curve Lunderquist was then advanced through the pigtail catheter and to the left ventricular apex.
The Evolut Pro+ stent was inspected under fluoroscopy/cine while rotating the stent delivery system. The stent paddles were within the pocket and no significant crown overlap noted.
Balloon predilation was performed with rapid pacing using a 20 mm Raquel balloon. The predilation balloon was removed and the 14 Fr. sheath was exchanged for the Evolut InLine delivery system. The 26 mm Evolut Pro+ stent was advanced across the
stenotic leaflets. The Evolut Pro+ valve was slowly deployed in the cusp overlap view until the stent flared achieving annular contact at 2 mm below the noncoronary cusp. The stent continued to flared achieving contact with the left coronary cusp.
The image intensifier was rotated to an LULU position to remove parallax from the valve with continued valve deployment with controlled pacing. We transitioned quickly through the rumble strips on the InLine delivery sheath until the marker band
was positioned just below the paddle attachment. Angiography was performed. The valve was 0 mm at the left coronary cusp and the decision was made to recapture the valve and position a little deeper. The valve was recaptured during rapid pacing
and advanced a few millimeters deeper to the left ventricle. The valve was re-deployed as we quickly transitioned through the rumble strips. Repeat angiography demonstrated excellent placement of the valve and the Evolut Pro+ 26 mm valve was
released. Angiography demonstrated minimal aortic insufficiency and the followup transthoracic echocardiogram had a mean gradient of 9 mmHg and only trace-mild paravalvular aortic insufficiency.
The Evolut Pro+ delivery system capsule was reunited to the body of the delivery system. The Evolut InLine sheath was removed and the Perclose knots were advanced to the arteriotomy site resulting in decent hemostasis. Manual pressure was held.
Fluoro Time (min): 12.8, Dose (mGy): 1102, DAP (Gy.cm2) : 125 point
CONCLUSIONS:
1. Severe symptomatic aortic stenosis. Successful deployment of a 26 mm Evolut Pro+ valve with trace to mild aortic insufficiency post procedure
2. Successful arteriotomy closure with 2 Perclose devices.
Copy to: Dr. Yusef Spangler
--- NOTE | 2024-03-09 14:37 | W.PN.UPDATE ---
Update Note
Progress Note Update
Reviewed Ms. Tejada with the heart team in the preTAVR SDM and confirmed a 26mm Evolut via right TF access. Patient will resume warfarin and aspirin post TAVR. LVEDP 30 mmHg. #26mm Evolut (serial# [id number]) successfully deployed via right
transfemoral access. Post implant MG 9mmHg.
[2024-03-09] MEDS: NSS 500 VEN SHEATH (15:10)
[2024-03-09] MEDS: LASIX 40 MG IV (15:33)
--- NOTE | 2024-03-09 16:41 | CM ---
Reviewed chart. Mrs. Tejada is in the operating room today. Prior to admission she resides alone in a in-law suite with her son and DIL home. He has a first floor set-up. She has a ramp to enter the home. Prior to admission she ambulates with a
walker. She is current with [facility]. Medical work-up in progress. Will need to see her current functional level to see if she has any skilled care needs. The discharge plan is to return home versus SNF/Rehab, depending on her
current functional status.
--- NOTE | 2024-03-09 17:36 | PTCARENOTE ---
Rec'd pt from laboratory aide awake and alert. Rt and left groin dsgs intact. Pt with left femoral temp pacing wire. VVI on monitor. Rate 40. mA 20. Pt denies pain, denies sob. Bedrest maintained. Pt tolerating sips of ice chips without difficulty. RA. See
worklist for VS/I and O and assessments.
[2024-03-09] MEDS: STERILE WATER FOR INJECTION 10 ML IV ×2 (17:43→17:44)
[2024-03-09] MEDS: AZACTAM 2000 MG IV ×2 (17:43)
[2024-03-09] MEDS: LIPITOR 10 MG PO (19:21)
--- NOTE | 2024-03-09 20:10 | PTCARENOTE ---
Assumed care of patient at 1900. Patient found resting in bed at time of assessment. Patient is AOx4, follows commands appropriately, can move all extremities. Lung sounds are diminished throughout, patient is on RA with saO2 at 95%. Heart tones are
normal. Patient appears to be in CHB with BBB on the cardiac monitor technician. Patient has transvenous pacing wires in place via L femoral vein with VVI settings 40/20. Patient has normal palpable pulses with +2 BLE edema. Patient has round obese abdomen
with active BS throughout. Patient has PW device in place draining yellow clear urine. Patient has old bruise of LLQ sergio and MASD under the L breast fold. There is a R groin puncture with 4x4 dressing that is CDI. There is a L groin puncture that
has a 4x4 dressing CDI. L groin also has [address] that houses temporary pacing wires. Patient has R 20G PIV available for intermittent infusion. Patient to remain on strict bedrest while transvenous PM is in place. Patient is stable.
[2024-03-09] MEDS: MYCOSTATIN OINTMENT 1 APPLIC TOPICAL (20:48)
[2024-03-09] MEDS: FLORASTOR 250 MG PO (20:48)
[2024-03-09] MEDS: TYLENOL 650 MG PO (20:48)
[2024-03-10] VITALS (27 sets, daily range): BP systolic 77–151; BP diastolic 36–100; BMI 45.2
--- NOTE | 2024-03-10 00:10 | PTCARENOTE ---
Patient placed on 2L O2 for desats to 88%. saO2 amadeo to 97%. Will continue to monitor.
--- NOTE | 2024-03-10 00:26 | PTCARENOTE ---
Assumed care of patient at 1900. Patient found resting in bed at time of assessment. Patient is AOx4, follows commands appropriately, can move all extremities. Lung sounds are diminished throughout, patient is on RA with saO2 at 95%. Heart tones are
normal. Patient appears to be in CHB with BBB on the monitor and storage bin tender. Patient has transvenous pacing wires in place via L femoral vein with VVI settings 40/20. Patient has normal palpable pulses with +2 BLE edema. Patient has round obese abdomen
with active BS throughout. Patient has PW device in place draining yellow clear urine. Patient has old bruise of LLQ sergio and MASD under the L breast fold. There is a R groin puncture with 4x4 dressing that is CDI. There is a L groin puncture that
has a 4x4 dressing CDI. L groin also has [address] that houses temporary pacing wires. Patient has R 20G PIV available for intermittent infusion. Patient to remain on strict bedrest while transvenous PM is in place. Patient is stable.
--- NOTE | 2024-03-10 00:47 | PTCARENOTE ---
Assumed care of patient at 1900. Patient found resting in bed at time of assessment. Patient is AOx4, follows commands appropriately, can move all extremities. Lung sounds are diminished throughout, patient is on RA with saO2 at 95%. Heart tones are
normal. Patient appears to be in CHB with BBB on the monitor tech. Patient has transvenous pacing wires in place via L femoral vein with VVI settings 40/20. Patient has normal palpable pulses with +2 BLE edema. Patient has round obese abdomen
with active BS throughout. Patient has PW device in place draining yellow clear urine. Patient has old bruise of LLQ sergio and MASD under the L breast fold. There is a R groin puncture with 4x4 dressing that is CDI. There is a L groin puncture that
has a 4x4 dressing CDI. L groin also has [address] that houses temporary pacing wires. Patient has R 20G PIV available for intermittent infusion. Patient to remain on strict bedrest while transvenous PM is in place. Patient is stable.
--- NOTE | 2024-03-10 04:38 | W.PN.CT ---
Today's Communication / Plan
-
-check Echo
-review EKG with cardiology (1st AVB on EKG, however on monitor appears to be CHB) intermittently paced overnight
-may need PPM, retain tranvenous pacer wire
-restart home meds
-ASA and Plavix
Assessment / Plan
-
s/p Right trans femoral TAVR with a 26 mm Medtronic Evolut FX device with preballoon valvuloplasty using a 20 mm balloon POD#1
-aortic stenosis
-CAD (ABHINAV to RCA)
-Arrhythmia (PAT)
-HTN
-LBBB
-Hyperlipidemia
-spinal stenosis
-arthritis
-melanoma
-PEPITO
-osteoartiritis)
-s/p Appendectomy
-s/p Hysterectomy
-s/p bilateral TKR
-s/p carpal tunnel release
-s/p Tonsilectomy
Subjective
Procedure
s/p Right trans femoral TAVR with a 26 mm Medtronic Evolut FX device with preballoon valvuloplasty using a [address] Torres on 03/10/24
-
Date of Service: March 10, 2024
Objective Data
-
Lab Results
03/10/24 03:46
03/10/24 03:46
PT 14.0 Sec (11.4-14.6) 02/28/24 13:23
INR 1.10 02/28/24 13:23
APTT 32.4 Sec (23.4-35.0) 02/28/24 13:23
Vital Signs
Vital Signs
Temp Pulse Resp BP Pulse Ox
97.5 F 63 22 132/67 97
03/10/24 03:00 03/10/24 03:00 03/10/24 03:00 03/10/24 03:00 03/10/24 04:42
Physical Exam
-
General: AOx3
Cardiovascular: Irregular rate & rhythm
Respiratory: Clear
Incision: Clean, Dry, Intact and Other (groins soft without hematoma)
[2024-03-10 05:21] LABS: Hematocrit 39.4 % (37.0-47.0); Hemoglobin 13.7 g/dL (12.0-16.0); Mean Corp Hgb Conc. 34.8 g/dL (33.0-37.0); Mean Corpuscular Hgb 33.4 pg (27.0-31.0); Mean Corpuscular Volume 96.1 fL (81.0-99.0); Mean Platelet Volume 11.7 fL (7.4-10.4); Platelet Count 139 10^3/uL (130-400); Red Cell Dist. Width 13.4 % (11.5-14.5); White Blood Cell Count 15.7 10^3/uL (4.8-10.8)
[2024-03-10 05:49] LABS: Blood Urea Nitrogen 31 mg/dl (7-17); Calcium 9.6 mg/dl (8.4-10.2); Carbon Dioxide 25 mmol/L (22-30); Chloride 98 mmol/L (98-107); Estimated Creatinine Clearance 37 ml/min; Glucose 152 mg/dl (70-99); Potassium 4.5 mmol/L (3.5-5.1); Sodium 137 mmol/L (135-145); eGFR > 60.00
--- NOTE | 2024-03-10 08:01 | W.PN.ANS.POP ---
Anesthesia Post Operative
- Anesthesia Post Op Note
Vital Signs Stable-See Nursing Note: Yes
Airway Patent: Yes
Adequate Pain Control: Yes
Change in Mental Status: No
Current Postoperative Nausea & Vomiting: No
Anesthesia Complications: No
General Anesthetic Recall: No
Unplanned Admission: No
Post Op Hydration Adequate: Yes
--- NOTE | 2024-03-10 08:46 | W.PN.CARDCBS ---
Addendum entered and electronically signed by Jas Wild DO 03/10/24 12:15:
I saw and examined the patient.
The Pin Chaser's note was reviewed and I agree with the note.
Comment:
Patient seen and examined. TVP in place. 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
GEN: No distress, awake, alert, oriented x3, obese
HEENT: supple, anicteric, mmm
LUNGS: CTA b/l, no wheezes/rales
CV: Reg, S1/S2, no murmur
EXT: No clubbing, cyanosis, or edema
NEURO: Gross non-focal
SKIN: Warm, dry, no rash
A/P As below
Patient with symptomatic irreversible bradycardia/intermittent complete heart block off AVN agents. We discussed pacemaker indications and device implant in detail. For implant there is an approximate 1:1000 risk of MT/stroke/ and a 1% risk of
pneumothorax/tamponade/infection/bleeding. We also discussed post procedure implant restrictions including positions to avoid with implant arm for first six weeks after implant as well as driving restrictions. I took time to answer all questions.
Plan for DC PPM implant with TVP removal. Patient verbalized understanding, consented, and agreed with plan.
Original Note:
Today's Communication / Plan
-
s/p TAVR 03/09
PPM today
Follow up echo
Impression / Plan
-
PCP: Dr. Christophe Mejia
Cardiology: ATCDr. Spangler
Impression:
Severe s/p 26 mm Evolut Pro+ TAVR 03/09/2024
CAD s/p 4 mm Xience to RCA 02/02/24
Complete heart block post TAVR
Chronic HFpEF
Hypertension
Hyperlipidemia
CT of chest with right upper lobe mass
Obesity/spinal stenosis
Paroxysmal atrial tachycardia/left bundle branch
Sick sinus syndrome
Osteoarthritis
Diverticular disease
LHC 02/02/2024: PCI of RCA, LVEDP 27, mean gradient 59 mmHg
Echo 01/12/2024: EF 55 to 60%, severe aortic stenosis with a mean gradient of 54.
Echo 03/10/2024: Study pending
Plan:
-Known severe and is now s/p TAVR 03/09/2024.
-Seen in AM POD#1. Patient feeling well, however intermittent complete heart block noted post TAVR.
-Temp wire remains in place. Plan is for PPM today. Keep NPO. Diltiazem on hold.
-Continue aspirin and plavix following PPM. Plavix held this AM pre-procedurally.
-Appears euvolemic. Continue lasix 40mg PO daily. Creat 0.9.
-Follow up echo pending today.
Progress Note - Councilor
Subjective
Date of Service: March 10, 2024
No complaints.
Objective
Labs:
03/10/24 03:46
03/10/24 03:46
Labs
Hgb 13.7 g/dL (12.0-16.0) 03/10/24 03:46
Hct 39.4 % (37.0-47.0) 03/10/24 03:46
Plt Count 139 10^3/uL (130-400) 03/10/24 03:46
PT 14.0 Sec (11.4-14.6) 02/28/24 13:23
INR 1.10 02/28/24 13:23
APTT 32.4 Sec (23.4-35.0) 02/28/24 13:23
Sodium 137 mmol/L (135-145) 03/10/24 03:46
Potassium 4.5 mmol/L (3.5-5.1) 03/10/24 03:46
BUN 31 mg/dl (7-17) H 03/10/24 03:46
Creatinine 0.9 mg/dL (0.6-1.0) 03/10/24 03:46
Glucose 152 mg/dl (70-99) H 03/10/24 03:46
Vital Signs and I&O:
Vital Signs
Temp Pulse Resp BP Pulse Ox
97.6 F 63 20 132/67 95
03/10/24 07:14 03/10/24 03:00 03/10/24 07:14 03/10/24 03:00 03/10/24 07:14
Vital Signs
Temp Pulse Resp BP Pulse Ox
97.6 F 63 20 132/67 95
03/10/24 07:14 03/10/24 03:00 03/10/24 07:14 03/10/24 03:00 03/10/24 07:14
Intake & Output
03/08/24 03/09/24 03/10/24 03/11/24
06:59 06:59 06:59 06:59
Intake Total 980 / 980 120 / 120
Output Total 700 / 700 550 / 550
Balance 280 / 280 -430 / -430
Physical Exam
Physical Exam
GEN: No distress, awake, alert, oriented x3
HEENT: supple, anicteric, mmm
LUNGS: CTA b/l, no wheezes/rales
CV: Reg, S1/S2, no murmur
EXT: No clubbing, cyanosis, or edema
NEURO: Gross non-focal
SKIN: Warm, dry, no rash
[2024-03-10] MEDS: OSCAL 500 + D PO (08:47)
[2024-03-10] MEDS: DETROL LA 4 MG PO (08:47)
[2024-03-10] MEDS: LOW STRENGTH ASPIRIN 81 MG PO (08:47)
[2024-03-10] MEDS: PROTONIX 40 MG PO (08:47)
[2024-03-10] MEDS: MYCOSTATIN OINTMENT 1 APPLIC TOPICAL ×2 (08:47→22:07)
[2024-03-10] MEDS: VITAMIN C PO (08:48)
[2024-03-10] MEDS: THERAGRAN PO (08:48)
[2024-03-10] MEDS: FLORASTOR PO (08:48)
[2024-03-10] MEDS: VITAMIN B-12 PO (08:48)
--- NOTE | 2024-03-10 08:53 | PTCARENOTE ---
assumed care of pt from previous shift RN, sinus rhythm vs paced rhythm at times on tele, + peripheral pulses, no edema. Lungs diminished, +bs, NPO maintained, incont urine, incont care provided, purewick replaced, Dressings to groins are intact,
sheath w pacing wire left vein. #20g PIV placed to left arm pre PPM, PIV flushes easily right arm. Morning medications reviewed w the cardiology GERTRUDE, Cielo Humphrey. Plavix help pre ppm as instructed. plan of care reviewed w the pt and questions
encouraged.
--- NOTE | 2024-03-10 11:14 | PTCARENOTE ---
bedside echo completed
[2024-03-10] MEDS: VANCOCIN 300 MG IV (11:36)
[2024-03-10] MEDS: VANCOCIN 300 ML IV (11:36)
--- NOTE | 2024-03-10 11:47 | PTCARENOTE ---
report given to ccl
--- NOTE | 2024-03-10 12:10 | PTCARENOTE ---
pt send to ccl
--- NOTE | 2024-03-10 15:22 | ITS.CL.PACE ---
Stiff Leg Operator - Pacemaker Implant
Pacemaker Implant
Procedure Report:
Primary Care Doctor: Dr. Christophe Mejia
Primary Button Facing Machine Operator: Yusef Spangler MD
Procedure Date: 03/10/2024
Name of procedure:
1. Placement of a dual-chamber pacemaker with left bundle area pacing lead for conduction system pacing
2. Subclavian venography
History:
1. Patient is a pleasant 88-year-old female with a past medical history significant for aortic stenosis status post TAVR are 03/09/2024, CAD status post PCI 01/2024, heart failure with preserved ejection fraction, hypertension, hyperlipidemia,
obesity, sick sinus syndrome, left bundle branch block who developed irreversible heart block/complete heart block following TAVR.
2. Please refer to H&P for complete history.
Indication:
Complete heart block
Sick sinus syndrome
Symptomatic irreversible bradycardia
Left bundle branch block
Methods:
After informed consent was obtained, the patient was brought to the EP laboratory in a postabsorptive, nonsedated state. Peripheral IV access was established. Prophylactic antibiotics were administered prior to incision. Continuous ECG, blood
pressure, and pulse oximetry were initiated. Cardioversion patch electrodes were placed on the patient's chest and back. A grounding patch was applied to the skin. Sedation was administered by anesthesia services.
In order to define the extrathoracic portion of the subclavian vein and exclude significant venous obstruction or anomalous anatomy, subclavian venography was performed prior to the procedure. Using the patient's left peripheral IV, contrast was
injected and images were recorded. The left subclavian vein and SVC were found to be widely patent.
The left chest was prepared and draped in a sterile fashion. A time-out was performed. Local anesthesia was injected in the subcutaneous tissue in the infraclavicular area. An incision was made medial to the deltopectoral groove. The subcutaneous
tissue was dissected the level of the prepectoral fascia. A subcutaneous pocket was created. Under fluoroscopic guidance and with the assistance of the images from the venogram, 2 separate venipunctures were made using micropuncture and modified
Seldinger technique. These were performed in the extrathoracic portion of the subclavian vein. Guidewires were passed and two peel-away sheaths were placed, and used to advance leads into the circulation.
Under fluoroscopic guidance, the RA lead was advanced in the RVOT and ventricular ectopy was recorded. Images were taken in the PRUITT and LULU views to ensure appropriate lead placement. Lead was subsequently positioned in the RV septum with adequate
sensing and pacing parameters. This was performed temporarily in the setting of complete heart block as our attention was turned to placement of the left bundle area pacing lead.
Fluoroscopy was used to determine likely anatomic site for left bundle branch pacing. The Getourguide C315 sheath was used to deliver the arviem AGtronic 3830 Selectsecure pacing lead with the helix exposed just exposed from the sheath tip during continuous
monitoring when pacemapping the septum during gentle clockwise rotation to obtain a paced QRS morphology of a W pattern in lead V1. Once the suspected optimal site was identified, lead deployment was performed with several rapid rotations as paced
QRS morphology was intermittently monitored until a paced QRS complex in lead V1 demonstrated development of an R wave (qR or rSR). Unipolar pacing impedance dropped by approximately 200 ohms suggesting it had reached the left ventricular
subendocardial. Stable VEgm injury current is present throughout lead position and at end of case. Final unipolar pacing impedance is 1050 Ohms. Unipolar pacing threshold is stable at 0.75 V @ 0.4 ms. The patient had pre-existing left bundle branch
block at baseline. Final conduction system paced QRS complex duration is 117 ms, LVAT is 74 ms, and peak V5 -> peak V1 timing is 34 ms. The C315 sheath was slit under fluoroscopy ensuring lead position and stability.
Next, the right atrial lead was repositioned in the right atrial appendage. Adequate sensing and pacing parameters were found, and no diaphragmatic stimulation was seen with high-output pacing. Both sheaths were split, and the leads were secured
to the fascia with Ethibond ties.
Under fluoroscopy, TVP was removed from RA. Following completion of procedure, sheath was removed in standard fashion from left femoral vein, hemostasis achieved with manual pressure.
The pocket was flushed with antibiotic solution and hemostasis was assured. The generator was connected to the leads and placed inside the pocket. The device was sutured to the fascia. Antibiotic envelope was used. Surgiflo was applied. The wound
was closed with 3 running layers of absorbable suture, and steri-strips were applied. Dressing applied over steri-strips in standard fashion.
Following the procedure, the patient was taken to the recovery area in stable condition. A chest x-ray to be obtained post procedure as routine.
Lead parameters and device programming:
- RA Lead (Medtronic, Model 5076, #[id number]): Sensing 4.1 mV, Pacing threshold 0.75 V at 0.4 ms, Imp 627 ohm
- RV Lead (Medtronic, Model 3830, #[id number]): Sensing 20 mV, Pacing threshold 0.75 V at 0.4 ms, Imp 684 ohm
- Device: Medtronic, Model W1DR01 pacemaker (#[id number]), programmed DDDR, mode switch on, lower rate 60, upper tracking rate 130
Conclusions:
1. Successful placement of a dual-chamber pacemaker with conduction system pacing (LBBAP)
2. Subclavian venography
3. TVP removal
Recommendations:
- Patient to return to her room
- Portable chest x-ray.
- OK to resume home medications as indicated
- Pressure dressing to be removed in AM, aquacell to remain until wound check
- Follow-up will be arranged in the office in 7-10 days post-discharge for incision check
Jas Wild,
Clinical Cardiac Cinder Dump Crane Operator
cc: Dr. Christophe Mejia, Yusef Spangler MD
--- NOTE | 2024-03-10 15:42 | CM ---
Reviewed chart. Mrs. Tejada has been in the Card slab grinder. Telephone call to [facility] Intake to see if they can resume services at time of discharge. [facility] states they can see her on Wednesday. Sent the referral. Physical and
Occupational therapy evaluations tomorrow. Medical work-up in progress. The discharge plan is to return home with resumption of [facility] services when medically stable.
[2024-03-10] MEDS: SUBLIMAZE 25 MCG IV (16:03)
[2024-03-10 16:11] LABS: Hematocrit 27.3 % (37.0-47.0); Hemoglobin 9.9 g/dL (12.0-16.0); Mean Corp Hgb Conc. 36.3 g/dL (33.0-37.0); Mean Corpuscular Hgb 34.1 pg (27.0-31.0); Mean Corpuscular Volume 94.1 fL (81.0-99.0); Mean Platelet Volume 11.3 fL (7.4-10.4); Platelet Count 133 10^3/uL (130-400); Red Cell Dist. Width 13.8 % (11.5-14.5); White Blood Cell Count 21.9 10^3/uL (4.8-10.8)
--- NOTE | 2024-03-10 16:30 | PTCARENOTE ---
Initial care of patient in recovery. Ultrasound complete to left groin. Dr Qureshi saw the ultrasound and said that the groin was stable. Hematoma minimized. +1 DP pulse to left lower extremity.
--- NOTE | 2024-03-10 16:40 | W.PN.UPDATE ---
Update Note
Progress Note Update
CTSP post PPM implant, L groin with 6F venous sheath removed in room where temp pacer wire was located, manual pressure held per protocol. She was noted to have significant swelling in her groin, radiating to pubis. Manual pressure held in room for
10min, H&H drawn with drop in hbg 13.7->9.9, u/s groin completed with HT noted but no PSA or active bleeding, Dr. Qureshi (vascular) at bedside. We will transfer to CVICU for closer monitoring, BR for 4 hours, repeat H&H at 8pm if continues to drop
will need to have CTA to better evaluate groin d/t large body habitus. If Hbg stable will repeat u/s in am. Dr. Wild, Dr. Zheng and son Telly updated. Continue to monitor groin closely.
--- NOTE | 2024-03-10 16:57 | PTCARENOTE ---
Report called to ULTRASOUND TECHNOLOGIST SONOGRAPHER MIke. Transfered on monitor to CVICU
--- NOTE | 2024-03-10 17:05 | PTCARENOTE ---
Patient received from EP lab: left groin assessed as painful and reduced hematoma palpated as unchanged from EP lab: USN reported as negative and vascular surgery Dr. Qureshi aware of same. New orders received. Stat cbc ordered: difficult lab draw.
--- NOTE | 2024-03-10 17:05 | CON.VAS ---
Consultation
Consultation Request
Date/Time Consultation Performed: 03/10/2024 1700
Requesting Provider: Cielo Humphrey
Performing Provider: Vivi Humphries NP-C for Juan C Qureshi III, MD
Reason for Consultation: Left groin hematoma
Medical History
-
Chief Complaint: Left groin hematoma
History of Present Illness:
This is an 88 year old female who is s/p TAVR procedure on 03/09/2024 who required continued pacing by temporary pacer wires via left femoral vein. Today she underwent PPM placement by Dr. Charles and following procedure left femoral vein sheath was
removed in EP operating room, manual pressure held per protocol. Asked to urgently evaluate when patient was noted to have significant selling in left groin, radiating to pubis. Per EP team additional manual pressure held in room for 10min.
Currently, vital signs stable and patient is alert and awake. She denies pain at groin with rest but does not tenderness with palpation, denies ABD pain.
Past Medical History
Past Medical History: Other (CAD (ABHINAV to RCA), HTN, Valvular Disease (aortic stenosis), LBBB, hyperlipidemia, spinal stenosis, arthritis, melanoma, PEPITO, osteoarthritis)
Past Surgical History: Appendectomy, Gynecological (hysterectomy ), Orthopedic (bilateral TKR, TKA, carpal tunnel release), Tonsilectomy and Other (rectovaginal fistula repair with a prolonged recovery, right inguinal hernia repair, melanoma
excision (L) shoulder, bilateral cataract surgery, (R) chest tube placement (age 3) d/t PNA/ empyema)
Social History
Tobacco: Non-Smoker
Alcohol: None
Drug: None
Personal:
Living: With Family
Allergies / Home Medications
Allergy/AdvReac Type Severity Reaction Status Date / Time
albuterol Allergy Blistering Verified 03/10/24 16:36
amitriptyline Allergy Exfoliative Verified 03/10/24 16:36
dermatitis
gabapentin Allergy Lips Verified 03/10/24 16:36
swell,
bottoms of
feet peel
Penicillins Allergy Hives Verified 03/10/24 16:36
�Medication �Instructions �Recorded �Confirmed �Type
acetaminophen 500 mg tablet 1,000 mg PO Q6H PRN mild pain 02/02/24 03/09/24 History
ascorbic acid (vitamin C) 500 mg 500 mg PO DAILY Supplement 02/02/24 03/09/24 History
tablet (Vitamin C)
calcium carbonate 600 mg-vitamin 1 tab PO DAILY Supplement 02/02/24 03/09/24 History
D3 5 mcg (200 unit) tablet
cranberry fruit concentrate 250 mg 250 mg PO TID Supplement 02/02/24 03/09/24 History
chewable tablet
mecobalamin (vitamin B12) 500 mcg 500 mcg PO DAILY 02/02/24 03/09/24 History
chewable tablet
multivitamin 1 tab PO DAILY 02/02/24 03/09/24 History
omega-3 964 mg-dha 257 mg-epa 643 1 cap PO DAILY 02/02/24 03/09/24 History
mg-fish oil 1.286 gram capsule
vibegron 75 mg tablet (Gemtesa) 75 mg PO DAILY 02/02/24 03/09/24 History
aspirin 81 mg chewable tablet 81 mg PO DAILY #1 tab 02/03/24 03/09/24 Rx
(Children's Aspirin)
atorvastatin 10 mg tablet 10 mg PO QPM #90 tabs 02/03/24 03/09/24 Rx
clopidogrel 75 mg tablet 75 mg PO DAILY #90 tabs 02/03/24 03/09/24 Rx
furosemide 40 mg tablet 40 mg PO DAILY #30 tabs 02/17/24 03/09/24 Rx
potassium chloride 20 mEq 20 meq PO DAILY #30 tabs 02/17/24 03/09/24 Rx
tablet,extended release(part/cryst)
olive leaf extract 250 mg PO DAILY 02/24/24 03/09/24 History
diltiazem HCl 180 mg 180 mg PO DAILY Heart 03/09/24 03/09/24 History
capsule,extended release 24 hr Disease/Condition
oregano oil 1,500 mg capsule 1,500 mg PO DAILY 03/09/24 03/09/24 History
Saccharomyces boulardii 250 mg 250 mg PO BID Supplement #0 caps 03/10/24 03/09/24 Rx
capsule
pantoprazole 40 mg tablet,delayed 40 mg PO DAILY Gastrointestinal 03/10/24 03/09/24 Rx
release issue #90 tabs
psyllium husk 0.52 gram capsule 0.52 g PO DAILY Constipation #0 03/10/24 03/09/24 Rx
caps
Review of Systems
-
History Source: Patient
Constitutional: Reports No Symptoms
EENT: Reports No Symptoms
Respiratory: Reports No Symptoms
Cardiac: Reports No Symptoms
Abdomen/GI: Reports No Symptoms
: Reports No Symptoms
Musculoskeletal: Reports No Symptoms
Skin: Reports Other (left groin mild pain with palpation)
Physical Exam
Vital Signs
Temp Pulse Resp BP Pulse Ox
97.6 F 101 15 116/67 95
03/10/24 11:25 03/10/24 16:51 03/10/24 16:51 03/10/24 16:51 03/10/24 16:57
Lab Results
03/10/24 03:46
Tlf-E-Chqorxhjvkh Pept 1650 pg/ml 02/28/24 13:23
Physical Exam
General: No Apparent Distress and Comfortable
HEENT: Normocephalic, Anicteric and Atraumatic
Respiratory: Non Labored Respirations
Cardiac: Negative JVD
GI: Soft, Non Tender, Non Distended and Other (rotund with pannus)
Musculoskeletal: No Edema
Skin: Warm, Dry and Other (ecchymosis at left groin, small area of firmness in crease of left groin, soft)
Neuro: Awake and Alert
Pulses: Bilateral Femoral: +1 and Left Dorsalis Pedis: +1
Assessment / Plan
-
Assessment: 88 year old female with left groin hematoma following removal of venous sheath
Plan:
Stat ultrasound to rule out pseudoaneurysm
Repeat H&H, close bedside vital sign monitoring
If patient develops instability or significant decrease in hemoglobin overnight would get stat CT angio abdomen/pelvis to rule out active bleeding
I performed this shared service with the attending, Dr. Juan C Qureshi III, MD. I evaluated the patient [id number] and have entered clinical documentation as shown in the encounter note. I performed the following component(s): history and physical
exam. Note that medical decision making is not final until attested by vascular attending.
[2024-03-10] MEDS: PLAVIX PO (17:43)
[2024-03-10] MEDS: LASIX PO (17:43)
[2024-03-10] MEDS: AZACTAM 2000 MG IV (17:43)
[2024-03-10] MEDS: KCL PO (17:43)
[2024-03-10] MEDS: STERILE WATER FOR INJECTION 10 ML IV (17:43)
[2024-03-10 17:56] LABS: Hematocrit 27.2 % (37.0-47.0); Hemoglobin 9.7 g/dL (12.0-16.0); Mean Corp Hgb Conc. 35.7 g/dL (33.0-37.0); Mean Corpuscular Hgb 33.4 pg (27.0-31.0); Mean Corpuscular Volume 93.8 fL (81.0-99.0); Mean Platelet Volume 11.4 fL (7.4-10.4); Platelet Count 138 10^3/uL (130-400); Red Cell Dist. Width 13.8 % (11.5-14.5); White Blood Cell Count 23.9 10^3/uL (4.8-10.8)
--- NOTE | 2024-03-10 18:30 | PTCARENOTE ---
Patient is still having significant pain left groin distal to old femoral vein pacing site: no further extension or enlargement of reduced hematoma was noted: LEESA Boyce aware of same: new orders noted and patient is to remain on bedrest until
repeat hemoglobin around 8pm this evening
[2024-03-10 20:23] LABS: Hematocrit 27.7 % (37.0-47.0); Hemoglobin 10.3 g/dL (12.0-16.0)
--- NOTE | 2024-03-10 20:30 | PTCARENOTE ---
Assumed care of patient at 1900. Patient found in bed at time of assessment. Patient is AOx4, [place], follows commands appropriately, moves all extremities. Patient's LUE is in an immobilizer from PPM placement and LLE encouraged to be kept straight
given hematoma of L groin. Lung sounds are dminished in the bases, patient is on 4L O2 via NC with saO2 at 97%. Heart tones are normal, patient is on conveyor monitor 100% v paced with occasional PVCs and tachy HR in 100s. Patient has DDDR settings
of 60-130. Patient has weak but palpable pulses and +1 BLE edema is noted. Patient has active BS reportedly incontinent maintained on PW with yellow clear urine. Patient reports poor appetite no desire to eat dinner this evening encouraged patient
to try to eat with breakfast. Patient has L breast fold MASD with some excoriation receiving scheduled antifungal cream, a LLQ bruise that is purple/black ecchymotic SAV, a R groin puncture with 4x4 dressing that is CDI, a L groin puncture with 4x4
dressing that is CDI some ecchymosis noted around the site, a L upper chest incision with pressure dressing+aquacell that is CDI, and L groin hematoma firm on palpation, tender to touch. Patient has a 20 G L FA PIV available for intermittent
infusion.
[2024-03-10] MEDS: TYLENOL 650 MG PO (20:38)
[2024-03-10] MEDS: LIPITOR 10 MG PO (20:38)
[2024-03-10] MEDS: FLORASTOR 250 MG PO (20:38)
[2024-03-11] VITALS (31 sets, daily range): BP systolic 91–175; BP diastolic 44–145; PULSE 94–115; O2SAT 96; BMI 45.8
--- NOTE | 2024-03-11 | PTCARENOTE ---
Patient reassessed. VSS. Remains 100% vpaced on the monitor. Patient is stable.
--- NOTE | 2024-03-11 | PTCARENOTE ---
Patient reassessed. VSS. Weaned to 2L O2 via NC. Remains V paced on monitoring and evaluation advisor HR has lowered to 80s-90s. H+H at [address] PA notified. Hematoma appears stable. Patient has no complaints at this time.
[2024-03-11 04:08] LABS: Hemoglobin 8.9 g/dL (12.0-16.0); Mean Corp Hgb Conc. 35.6 g/dL (33.0-37.0); Mean Corpuscular Hgb 34.1 pg (27.0-31.0); Mean Corpuscular Volume 95.8 fL (81.0-99.0); Mean Platelet Volume 11.5 fL (7.4-10.4); Platelet Count 117 10^3/uL (130-400); Red Blood Cell Count 2.61 10^6/uL (4.20-5.40); Red Cell Dist. Width 13.7 % (11.5-14.5); White Blood Cell Count 22.4 10^3/uL (4.8-10.8)
[2024-03-11 04:30] LABS: Blood Urea Nitrogen 44 mg/dl (7-17); Calcium 8.4 mg/dl (8.4-10.2); Carbon Dioxide 21 mmol/L (22-30); Chloride 98 mmol/L (98-107); Estimated Creatinine Clearance 20 ml/min; Glucose 156 mg/dl (70-99); Potassium 4.8 mmol/L (3.5-5.1); Sodium 132 mmol/L (135-145); eGFR 28.49
--- NOTE | 2024-03-11 04:46 | W.PN.CT ---
Today's Communication / Plan
-
-PPM placed yesterday and TPW in Lt. groin removed
-had significant Hgb drop after above, however, H&H remained stable thereafter until this morning (dropped to 8.9 from 10.3)
-US groin vs. CTA to assess hematoma
-Creat up to 1.7 from 0.9
-she was incontinent and UO unable to be measured, purewik placed
-Hold Plavix
Assessment / Plan
-
s/p Right trans femoral TAVR with a 26 mm Medtronic Evolut FX device with preballoon valvuloplasty using a 20 mm balloon POD#2
s/p PPM POD#1
-aortic stenosis
-CAD (ABHINAV to RCA)
-Arrhythmia (PAT)
-HTN
-LBBB
-Hyperlipidemia
-spinal stenosis
-arthritis
-melanoma
-PEPITO
-osteoartiritis)
-s/p Appendectomy
-s/p Hysterectomy
-s/p bilateral TKR
-s/p carpal tunnel release
-s/p Tonsilectomy
-Acute blood loss anemia
Subjective
Procedure
s/p Right trans femoral TAVR with a 26 mm Medtronic Evolut FX device with preballoon valvuloplasty using a [address] Torres on 03/09/24
s/p PPM on 03/10
-
Date of Service: March 11, 2024
Objective Data
-
Lab Results
03/11/24 03:55
03/11/24 03:55
PT 14.0 Sec (11.4-14.6) 02/28/24 13:23
INR 1.10 02/28/24 13:23
APTT 32.4 Sec (23.4-35.0) 02/28/24 13:23
Vital Signs
Vital Signs
Temp Pulse Resp BP Pulse Ox
98.2 F 87 23 107/59 100
03/10/24 19:00 03/11/24 04:30 03/11/24 04:30 03/11/24 04:11 03/11/24 04:30
CT Intake/Output/Weight
03/10/24 03/10/24 03/11/24
06:59 18:59 06:59
Intake Total 130 / 130
Output Total 600 / 700 800 / 800
Balance -600 / 280 -670 / -670
SaO2: 100
Physical Exam
-
General: AOx3
Cardiovascular: Regular rate & rhythm
Respiratory: Decreased Breath Sounds
Incision: Dressing Intact, Tender and Other (Left groin ecchymotic (increased from last evening), hematoma stable on palpation.)
--- NOTE | 2024-03-11 05:05 | PTCARENOTE ---
Patient reassessed. VSS. Remains V paced on monitor with HR between 80s-90s. AM EKG obtained. AM labs obtained. Hygiene care provided. More bruising noted around cath site extending towards hematoma. Hematoma has not increased in size itself.
Patient is stable.
--- NOTE | 2024-03-11 07:35 | PTCARENOTE ---
Assumed care of patient from shift coordinator RN. Hand off rounds for bilateral groin sites. Lt groin grossly ecchymotic with edema and and firmness to lower panis and labia on left side. Painful with palpation. Assessment otherwise benign. Lt chest
wall PPM site c,d,i with pressure dressing intact. Lungs clear bilaterally. V paced on monitor. Room air 99%. Abdomen obese, with positive bowel sounds. Pure wick intact. Pulses palpable. Awaiting MD rounds for plan
[2024-03-11] MEDS: VITAMIN C 500 MG PO (08:06)
[2024-03-11] MEDS: VITAMIN B-12 500 MCG PO (08:06)
[2024-03-11] MEDS: LASIX 40 MG PO (08:06)
[2024-03-11] MEDS: PROTONIX 40 MG PO (08:06)
[2024-03-11] MEDS: THERAGRAN 1 TABLET PO (08:06)
[2024-03-11] MEDS: FLORASTOR 250 MG PO ×2 (08:06→20:15)
[2024-03-11] MEDS: OSCAL 500 + D 500 MG PO (08:06)
[2024-03-11] MEDS: MYCOSTATIN OINTMENT 1 APPLIC TOPICAL ×2 (08:06→20:15)
[2024-03-11] MEDS: DETROL LA 4 MG PO (08:06)
[2024-03-11] MEDS: KCL 20 MEQ PO (08:06)
[2024-03-11] MEDS: LOW STRENGTH ASPIRIN 81 MG PO (08:06)
--- NOTE | 2024-03-11 09:03 | W.PN.CARDCBS ---
Today's Communication / Plan
-
Repeat ultrasound
Follow creatinine
Low-dose Lasix
DAPT therapy
Pacemaker site stable
Impression / Plan
-
PCP: Dr. Christophe Mejia
Cardiology: ATC, Dr. Spangler
Impression:
Severe s/p 26 mm Evolut Pro+ TAVR 03/09/2024
CAD s/p 4 mm Xience to RCA 02/02/24
Complete heart block post TAVR
Chronic HFpEF
Hypertension
Hyperlipidemia
CT of chest with right upper lobe mass
Obesity/spinal stenosis
Paroxysmal atrial tachycardia/left bundle branch
Sick sinus syndrome
Osteoarthritis
Diverticular disease
LHC 02/02/2024: PCI of RCA, LVEDP 27, mean gradient 59 mmHg
Echo 01/12/2024: EF 55 to 60%, severe aortic stenosis with a mean gradient of 54.
Echo 03/10/2024: Study pending
Plan:
-Known severe and is now s/p TAVR 03/09/2024.
-Status post dual-chamber pacemaker on 03/10/2024 with appropriate device function
-Left groin hematoma after removal of the left femoral venous sheath and temp wire. Examined today and noted to have a hematoma with some tenderness although overall remains hemodynamically stable. Hemoglobins are noted and imaging is noted
-Continue aspirin and plavix following PPM
-Appears euvolemic. Continue lasix 40mg PO daily for now although with rising creatinine of 1.7 may need to consider holding tomorrow if the creatinine does not rebound
-Discussed with vascular surgery and CT surgery teams and I have no objection to reimaging today with a lower extremity ultrasound on the side of the hematoma. I would be reticent to consider CT scan with intravenous dye given her rising creatinine
although if the creatinine recovers we could consider this over the next 24 to 48 hours
Progress Note - Interior Decorator
Subjective
Date of Service: March 11, 2024
Total Time Spent with Patient (in minutes): Hematoma noted
Objective
Labs:
03/11/24 03:55
Labs
Hgb 8.9 g/dL (12.0-16.0) L 03/11/24 03:55
Hct 25.0 % (37.0-47.0) L 03/11/24 03:55
Plt Count 117 10^3/uL (130-400) L 03/11/24 03:55
PT 14.0 Sec (11.4-14.6) 02/28/24 13:23
INR 1.10 02/28/24 13:23
APTT 32.4 Sec (23.4-35.0) 02/28/24 13:23
Sodium 132 mmol/L (135-145) L 03/11/24 03:55
Potassium 4.8 mmol/L (3.5-5.1) 03/11/24 03:55
BUN 44 mg/dl (7-17) H 03/11/24 03:55
Creatinine 1.7 mg/dL (0.6-1.0) H 03/11/24 03:55
Glucose 156 mg/dl (70-99) H 03/11/24 03:55
Vital Signs and I&O:
Vital Signs
Temp Pulse Resp BP Pulse Ox
97.6 F 95 16 112/66 100
03/11/24 07:34 03/11/24 07:34 03/11/24 07:34 03/11/24 05:00 03/11/24 07:34
Vital Signs
Temp Pulse Resp BP Pulse Ox
97.6 F 95 16 112/66 100
03/11/24 07:34 03/11/24 07:34 03/11/24 07:34 03/11/24 05:00 03/11/24 07:34
Intake & Output
03/09/24 03/10/24 03/11/24 03/12/24
06:59 06:59 06:59 06:59
Intake Total 980 / 980 130 / 130 120 / 120
Output Total 700 / 700 800 / 800
Balance 280 / 280 -670 / -670 120 / 120
Physical Exam
Physical Exam
�
����Physical Exam
�
��������������������General:� no apparent distress, not acutely ill
�
��������������������������Neck:� supple. no meningeal signs. normal psoterior pharynx
������������������������Pacer site clean dry and intact on the left chest
���������������������������Heart:� s1/s2 regular rate and rhythm, no murmur. equal radial pulses.
�
��������������������������Lungs:�� no acute respiratory distress. clear bilaterally
�
����������������������Abdomen:normal bowel sounds. not tender. no CVAT
�
��������������������������Neuro:� alert and oriented. no focal neurological deficits
�
������������������������������Skin:�� no rash
�
�����������������������Psychiatric:well kept. interactive and cooperative
�
����������������������Extremities:�Left groin without bruit with significant hematoma and slight tenderness
�
�
�
��
�
[2024-03-11 11:38] LABS: Blood Urea Nitrogen 48 mg/dl (7-17); Calcium 8.4 mg/dl (8.4-10.2); Carbon Dioxide 19 mmol/L (22-30); Chloride 98 mmol/L (98-107); Estimated Creatinine Clearance 19 ml/min; Glucose 204 mg/dl (70-99); Potassium 4.5 mmol/L (3.5-5.1); Sodium 130 mmol/L (135-145)
--- NOTE | 2024-03-11 11:58 | PTCARENOTE ---
Resting in recliner, denies pain at present. LT groin SAV, and intact, no change in appearance from prior. Scheduled lab work obtained. Use of IS encouraged and reinforced. VSS. Assessment otherwise unchanged from prior.
--- NOTE | 2024-03-11 12:59 | PTCARENOTE ---
Pt 'demanding' to get back to bed. Despite multiple attempts to get patient comfortable in chair and reinforce importance of staying Out of the bed, Pt began screaming at RN to get back to bed and that the chair is torture. Able to ambulate with
rolling walker back to bed. Staff x 3 needed to assist into bed. Will continue to encourage movement.
[2024-03-11] MEDS: CARDIZEM 60 MG PO (17:07)
[2024-03-11] MEDS: LIPITOR 10 MG PO (17:07)
--- NOTE | 2024-03-11 17:21 | PTCARENOTE ---
Ambulated in room for approx 20 feet using rolling walker. SHOEMAKER noted. Pt sitting back in the chair after begrudgingly. Lt groin remains intact.
--- NOTE | 2024-03-11 18:29 | W.PN.UPDATE ---
Update Note
Progress Note Update
Left groin diffusely ecchymotic and tender this AM with Hb 8.9>repeat ultrasound reported left groin hematoma. No pseudoaneurysm identified. Plavix resumed. Gemtesa held due to INGE (creat 1.7-1.8). Diltiazem 60mg TID started for ST.
--- NOTE | 2024-03-11 20:53 | PTCARENOTE ---
Assumed care of patient at 1900. Patient found in bed at time of assessment. Patient is AOx4, LA POSTA wears hearing aids, follows commands appropriately, moves all extremities. Lung sounds are diminished in the bases, patient is on RA saO2 at 93%. Heart
sounds have a regular rate and rhythm, patient is 100% vpaced on the monitor HR 70s-80s, PPM has DDDR settings 60-130. Patient has normal palpable pulses and trace BLE edema. Patient has active BS throughout round obese abdomen, patient is known to
be incontinent of urine at times. Patient has L breast fold MASD with some excoriation noted, a L groin puncture EVP GENERAL COUNSEL with ecchymosis and hematoma extending from groin to pubis which is firm and raised no increase in size from previous assessment.
There is also a R groin puncture with 4x4 dressing that is CDI. Patient has L FA PIV available for intermittent infusion. Soft BPs noted with [address] SURGERY SPECIALIST notified order to hold 2200 cardizem dose adjusted to 30mg for AM will continue to monitor
BP. No complaints at this time.
[2024-03-12] VITALS (32 sets, daily range): BP systolic 95–146; BP diastolic 48–113; BMI 44.5
[2024-03-12 04:36] LABS: Mean Corp Hgb Conc. 37.1 g/dL (33.0-37.0); Mean Corpuscular Hgb 33.8 pg (27.0-31.0); Mean Corpuscular Volume 91.3 fL (81.0-99.0); Red Blood Cell Count 1.95 10^6/uL (4.20-5.40); Red Cell Dist. Width 13.9 % (11.5-14.5); White Blood Cell Count 18.6 10^3/uL (4.8-10.8)
[2024-03-12 04:43] LABS: Hematocrit 17.8 % (37.0-47.0); Hemoglobin 6.6 g/dL (12.0-16.0)
--- NOTE | 2024-03-12 04:50 | PTCARENOTE ---
Patient reassessed. VSS. Patient with incontinence episode around 0200 attempted to get OOB to use commode without success. Patient requires heavy assistance to successfully ambulate OOB. At 0400 patient used commode again this time successfully
voiding 150mL AM labs obtained showing significant anemia hgb-6.6. CT [employer] notified. Awaiting further orders. Remains Vpaced on the monitor.
[2024-03-12 04:56] LABS: Blood Urea Nitrogen 57 mg/dl (7-17); Calcium 8.2 mg/dl (8.4-10.2); Carbon Dioxide 23 mmol/L (22-30); Chloride 97 mmol/L (98-107); Estimated Creatinine Clearance 18 ml/min; Glucose 157 mg/dl (70-99); Potassium 4.4 mmol/L (3.5-5.1); Sodium 130 mmol/L (135-145); eGFR 24.93
--- NOTE | 2024-03-12 05:03 | W.PN.CT ---
Today's Communication / Plan
-
-PPM placed 03/10 and TPW in Lt. groin removed
-Hgb continues to drop down after resuming plavix 9.7->8.9->6.6 this AM, repeat Hgb 6.3, 1 U PRBC ordered and repeat CBC at noon
-BP soft but with the addition of diltiazem yesterday. Diltiazem dose reduced to 30 mg TID
-US groin 03/11 no PSA or AV fistula. hematoma measuring approximately 5.0 x 4.4 x 5.7 cm, on exam hematoma grossly unchanged
-Creat up to 1.9 from 0.9, made at least 550 cc urine +voids in 24 hrs, she was incontinent and UO unable to be measured, purewick placed
-Hold Plavix for now, continued on asa
-Continue atorvastatin, furosemide, PPI, Detrol LA
Assessment / Plan
-
s/p Right trans femoral TAVR with a 26 mm Medtronic Evolut FX device with preballoon valvuloplasty using a 20 mm balloon POD#3
s/p PPM POD#2
-aortic stenosis
-CAD (ABHINAV to RCA)
-Arrhythmia (PAT)
-HTN
-LBBB
-Hyperlipidemia
-spinal stenosis
-arthritis
-melanoma
-PEPITO
-osteoartiritis)
-s/p Appendectomy
-s/p Hysterectomy
-s/p bilateral TKR
-s/p carpal tunnel release
-s/p Tonsilectomy
-Acute blood loss anemia
-groin hematoma
-CHB
Subjective
Procedure
s/p Right trans femoral TAVR with a 26 mm Medtronic Evolut FX device with preballoon valvuloplasty using a [address] Torres on 03/09/24
s/p PPM on 03/10
-
Date of Service: March 12, 2024
Objective Data
-
Lab Results
03/12/24 04:27
PT 14.0 Sec (11.4-14.6) 02/28/24 13:23
INR 1.10 02/28/24 13:23
APTT 32.4 Sec (23.4-35.0) 02/28/24 13:23
Vital Signs
Vital Signs
Temp Pulse Resp BP Pulse Ox
97.8 F 91 18 146/96 98
03/11/24 23:00 03/12/24 04:45 03/11/24 23:00 03/12/24 04:18 03/11/24 23:00
CT Intake/Output/Weight
03/11/24 03/11/24 03/12/24
06:59 18:59 06:59
Intake Total 600 / 600
Output Total 550 / 550
Balance 50 / 50
SaO2: 98
Physical Exam
-
General: Awake and Oriented
Cardiovascular: Regular rate & rhythm and No Murmurs
Respiratory: Clear
Extremities: Other (hematoma extending from groin to pubis)
Data Reviewed
-
Lab Results: Results Reviewed
Medications: Active Meds Reviewed
Chest X-Ray: Report Reviewed
ECG: Report Reviewed
[2024-03-12 05:12] LABS: Mean Platelet Volume 11.2 fL (7.4-10.4); Platelet Count 91 10^3/uL (130-400)
[2024-03-12 05:27] LABS: Hematocrit 16.9 % (37.0-47.0); Hemoglobin 6.3 g/dL (12.0-16.0)
[2024-03-12 05:36] LABS: INR 1.22; PT 15.2 Sec (11.4-14.6)
[2024-03-12 05:37] LABS: APTT 39.3 Sec (23.4-35.0)
--- NOTE | 2024-03-12 05:49 | PTCARENOTE ---
Patient reassessed. VSS. Remains 100% vpaced on the monitor. Patient is stable.
--- NOTE | 2024-03-12 05:55 | PTCARENOTE ---
Addendum entered by Quang Castelan RN 03/12/24 06:03:
Hematoma remains stable in the same location however bruising has spread significantly to patient's L flank. CT PRIMER CHARGER notified.
Original Note:
Orders for f/u H+H, coagulation labs, and T+S obtained. Hgb-6.[address] PRIMER CHARGER notified. Awaiting further orders.
--- NOTE | 2024-03-12 07:11 | W.PN.UPDATE ---
Update Note
Progress Note Update
Nusrat He, Ed[place] notified of continued drop in Hb to 6.3<8.9 (13.7 pre-TAVR). Agreement to proceed with non-con CT C/A/P with risk of further worsening of creatinine. Add-on labs to morning bloodwork: Retic count, haptoglobin, LDH.
--- NOTE | 2024-03-12 07:30 | PTCARENOTE ---
Assumed care of patient from night nurse RN. AAO x 3, grumpy , and upset she cant order breakfast yet d/t testing. V paced on monitor. Rub noted on auscultation. Room air 92%. Denies pain at present. panis, Lt groin, Lower left abdomen and
Upper Lt thigh grossly ecchymotic. Labia and lower panis firm. Incontinent of urine this am, purewick applied after full bed bath and linen changed. Pulses palpable. Awaiting IV team RN for new access then plan to transport to CT scan KELLEN.
--- NOTE | 2024-03-12 08:13 | W.PN.CARDCBS ---
Today's Communication / Plan
-
Transfusion
Check hemolysis labs
Follow hemoglobin
Reviewed CT scan with vascular surgery
Discussed care with CT surgery team
Stable pacemaker function
Will follow
Reason will continue Lasix given transfusion requirement today but will need to follow creatinine closely
Follow daily creatinine
Impression / Plan
-
PCP: Dr. Christophe Mejia
Cardiology: ATC, Dr. Spangler
Impression:
Severe s/p 26 mm Evolut Pro+ TAVR 03/09/2024
CAD s/p 4 mm Xience to RCA 02/02/24
Complete heart block post TAVR
Chronic HFpEF
Hypertension
Hyperlipidemia
CT of chest with right upper lobe mass
Obesity/spinal stenosis
Paroxysmal atrial tachycardia/left bundle branch
Sick sinus syndrome
Osteoarthritis
Diverticular disease
LHC 02/02/2024: PCI of RCA, LVEDP 27, mean gradient 59 mmHg
Echo 01/12/2024: EF 55 to 60%, severe aortic stenosis with a mean gradient of 54.
Echo 03/10/2024: Study pending
Plan:
-Known severe and is now s/p TAVR 03/09/2024.
-Status post dual-chamber pacemaker on 03/10/2024 with appropriate device function. Reviewed telemetry with appropriate device function and intermittent conduction and stable ventricular pace sense
-Left groin hematoma after removal of the left femoral venous sheath and temp wire. Examined today and noted to have a hematoma with some tenderness although overall remains hemodynamically stable with periodic dips in blood pressure. Hemoglobins
are noted and imaging is noted. I reviewed the noncontrast CT scan with vascular surgery today which does not suggest retroperitoneal hematoma or other areas of active bleeding. I remain underwhelmed by her flank and abdominal exam and continues
to have tenderness locally at the left femoral venous site.
-Agree with working up hemolysis as well with haptoglobin and LDH.
-Agree with 2 units of packed red cells and follow hemoglobin
-Continue aspirin. Will hold on Plavix until we stabilize her hemoglobin
-Appears euvolemic. Continue lasix 40mg PO daily for now although with rising creatinine of 1.9 may need to consider holding. Given 2 unit packed cell transfusion today p.o. Lasix will be reasonable to maintain volume status
-Discussed with vascular surgery and CT surgery teams. I would be reticent to consider CT scan with intravenous dye given her rising creatinine but can consider if we have ongoing concern for bleeding.
Progress Note - Veterinary Pharmacologist
Subjective
Date of Service: March 12, 2024
Total Time Spent with Patient (in minutes): Feels about the same
Objective
Labs:
03/12/24 04:27
Labs
Hgb 6.3 g/dL (12.0-16.0) L* 03/12/24 05:12
Hct 16.9 % (37.0-47.0) L* 03/12/24 05:12
Plt Count 91 10^3/uL (130-400) L D 03/12/24 04:27
PT 15.2 Sec (11.4-14.6) H 03/12/24 05:12
INR 1.22 03/12/24 05:12
APTT 39.3 Sec (23.4-35.0) H 03/12/24 05:12
APTT Cancelled 03/12/24 05:12
Sodium 130 mmol/L (135-145) L 03/12/24 04:27
Potassium 4.4 mmol/L (3.5-5.1) 03/12/24 04:27
BUN 57 mg/dl (7-17) H 03/12/24 04:27
Creatinine 1.9 mg/dL (0.6-1.0) H 03/12/24 04:27
Glucose 157 mg/dl (70-99) H 03/12/24 04:27
Vital Signs and I&O:
Vital Signs
Temp Pulse Resp BP Pulse Ox
98.0 F 95 18 106/53 92
03/12/24 08:00 03/12/24 08:00 03/12/24 08:00 03/12/24 06:07 03/12/24 08:00
Vital Signs
Temp Pulse Resp BP Pulse Ox
98.0 F 95 18 106/53 92
03/12/24 08:00 03/12/24 08:00 03/12/24 08:00 03/12/24 06:07 03/12/24 08:00
Intake & Output
03/10/24 03/11/24 03/12/24 03/13/24
06:59 06:59 06:59 06:59
Intake Total 980 / 980 130 / 130 600 / 600 240 / 240
Output Total 700 / 700 800 / 800 700 / 700
Balance 280 / 280 -670 / -670 -100 / -100 240 / 240
Physical Exam
Physical Exam
�
����Physical Exam
�
��������������������General:� no apparent distress, not acutely ill
�
��������������������������Neck:� supple. no meningeal signs. normal psoterior pharynx
������������������������
���������������������������Heart:� s1/s2 regular rate and rhythm, no murmur. equal radial pulses.
Pacer site is clean dry and intact
��������������������������Lungs:�� no acute respiratory distress. clear bilaterally
�
����������������������Abdomen:normal bowel sounds. not tender. no CVAT. At her flanks and pannus there is no tenderness. There is no bruit in the left femoral venous region and stable pannus and left femoral site hematoma
�
��������������������������Neuro:� alert and oriented. no focal neurological deficits
�
������������������������������Skin:�� no rash
�
�����������������������Psychiatric:well kept. interactive and cooperative
�
����������������������Extremities:� no edema. no calf tenderness. negative homans. good distal pulses
�
�
�
��
�
[2024-03-12] MEDS: OSCAL 500 + D 500 MG PO (08:22)
[2024-03-12] MEDS: MYCOSTATIN OINTMENT 1 APPLIC TOPICAL ×2 (08:22→19:51)
[2024-03-12] MEDS: LOW STRENGTH ASPIRIN 81 MG PO (08:22)
[2024-03-12] MEDS: THERAGRAN 1 TABLET PO (08:22)
[2024-03-12] MEDS: VITAMIN B-12 500 MCG PO (08:22)
[2024-03-12] MEDS: PROTONIX 40 MG PO (08:22)
[2024-03-12] MEDS: FLORASTOR 250 MG PO ×2 (08:22→19:51)
[2024-03-12] MEDS: VITAMIN C 500 MG PO (08:22)
[2024-03-12] MEDS: CARDIZEM 30 MG PO ×3 (08:22→22:52)
[2024-03-12 08:32] LABS: Reticulocyte Count 5.5 % (0.4-2.8)
[2024-03-12] MEDS: LASIX PO (08:35)
[2024-03-12] MEDS: KCL PO (08:35)
[2024-03-12 08:54] LABS: LDH 223 U/L (120-246)
--- NOTE | 2024-03-12 09:45 | CON.VAS ---
Consultation
Consultation Request
Reason for Consultation: bleed s/p TAVR
Medical History
-
Chief Complaint: decreasing hbg in setting of recent TAVR and Tvenous pacer wire removal
History of Present Illness:
88 yo F with history of TAVR, complicated by complete heart block post procedure requiring transvenous pacing and PPM placement. After her transvenous pacer was removed she was noted to have left groin discomfort and hematoma. Since that time her
hbg has also decreased. Vascular consulted due to concern for ongoing bleeding. She currently has no complaints including no back or flank pain, rather only some tenderness to her left groin if touched.
Past Medical History
Past Medical History: CAD
Past Surgical History: Cardiac
Family History
Family History: Reviewed & Not Pertinent
Allergies / Home Medications
Allergy/AdvReac Type Severity Reaction Status Date / Time
albuterol Allergy Blistering Verified 03/10/24 16:36
amitriptyline Allergy Exfoliative Verified 03/10/24 16:36
dermatitis
gabapentin Allergy Lips Verified 03/10/24 16:36
swell,
bottoms of
feet peel
Penicillins Allergy Hives Verified 03/10/24 16:36
�Medication �Instructions �Recorded �Confirmed �Type
acetaminophen 500 mg tablet 1,000 mg PO Q6H PRN mild pain 02/02/24 03/09/24 History
ascorbic acid (vitamin C) 500 mg 500 mg PO DAILY Supplement 02/02/24 03/09/24 History
tablet (Vitamin C)
calcium carbonate 600 mg-vitamin 1 tab PO DAILY Supplement 02/02/24 03/09/24 History
D3 5 mcg (200 unit) tablet
cranberry fruit concentrate 250 mg 250 mg PO TID Supplement 02/02/24 03/09/24 History
chewable tablet
mecobalamin (vitamin B12) 500 mcg 500 mcg PO DAILY 02/02/24 03/09/24 History
chewable tablet
multivitamin 1 tab PO DAILY 02/02/24 03/09/24 History
omega-3 964 mg-dha 257 mg-epa 643 1 cap PO DAILY 02/02/24 03/09/24 History
mg-fish oil 1.286 gram capsule
vibegron 75 mg tablet (Gemtesa) 75 mg PO DAILY 02/02/24 03/09/24 History
aspirin 81 mg chewable tablet 81 mg PO DAILY #1 tab 02/03/24 03/09/24 Rx
(Children's Aspirin)
atorvastatin 10 mg tablet 10 mg PO QPM #90 tabs 02/03/24 03/09/24 Rx
clopidogrel 75 mg tablet 75 mg PO DAILY #90 tabs 02/03/24 03/09/24 Rx
furosemide 40 mg tablet 40 mg PO DAILY #30 tabs 02/17/24 03/09/24 Rx
potassium chloride 20 mEq 20 meq PO DAILY #30 tabs 02/17/24 03/09/24 Rx
tablet,extended release(part/cryst)
olive leaf extract 250 mg PO DAILY 02/24/24 03/09/24 History
diltiazem HCl 180 mg 180 mg PO DAILY Heart 03/09/24 03/09/24 History
capsule,extended release 24 hr Disease/Condition
oregano oil 1,500 mg capsule 1,500 mg PO DAILY 03/09/24 03/09/24 History
Saccharomyces boulardii 250 mg 250 mg PO BID Supplement #0 caps 03/10/24 03/09/24 Rx
capsule
pantoprazole 40 mg tablet,delayed 40 mg PO DAILY Gastrointestinal 03/10/24 03/09/24 Rx
release issue #90 tabs
psyllium husk 0.52 gram capsule 0.52 g PO DAILY Constipation #0 03/10/24 03/09/24 Rx
caps
Review of Systems
-
History Source: Patient
All other systems: Negative unless noted
Physical Exam
Vital Signs
Temp Pulse Resp BP Pulse Ox
98.0 F 91 18 129/113 92
03/12/24 08:00 03/12/24 09:00 03/12/24 08:00 03/12/24 09:00 03/12/24 08:36
Lab Results
03/12/24 04:27
Scf-C-[id number] Pept 1650 pg/ml 02/28/24 13:23
Physical Exam
General: Well Developed
Respiratory: Clear
Cardiac: S1/S2
GI: Other (L flank and pannus with ecchymosis but no hematomas. L groin with ecchymosis and soft hematoma. no skin compromise.)
Pulses: Bilateral Femoral: +2
Assessment / Plan
-
88 yo F with decreasing hgb, l groin hematoma, and INGE s/p TAVR and removal of left transvenous pacing wire
-She has had 2 groin duplexes, both show a hematoma but there is no flow seen within the cavity to suggest an active bleed or psa
-Given her INGE I asked for a non con CT scan to rule out an RP hematoma. I see no evidence of this at all on this scan. She does have a hematoma in her groin and upper thigh. Given two negative ultrasounds, venous access, and no RP bleed I think the
risk of contrast administration now with a CTA/V would outweigh the benefit. I would recommend continued serial exams, resuscitation with blood products, and serial hemoglobins. Should her hgb continue to decrease significantly or should she have
any hemodynamic compromise CTA can be considered further.
Data Reviewed
-
CT Scan: Image Personally Visualized and interpreted
Ultrasound: Image Personally Visualized and interpreted
[2024-03-12 10:10] LABS: Direct Bilirubin 0.3 mg/dl (0.0-0.4); Total Bilirubin 0.7 mg/dl (0.2-1.3)
[2024-03-12] MEDS: LASIX 40 MG IV (11:31)
--- NOTE | 2024-03-12 11:49 | PTCARENOTE ---
Femstop applied to LT groin by CT LAMP CLEANER. Pt tolerated. Pulses palpable. Skin warm and dry.
[2024-03-12 14:20] LABS: Hematocrit 23.7 % (37.0-47.0); Mean Corp Hgb Conc. 36.7 g/dL (33.0-37.0); Mean Corpuscular Hgb 32.3 pg (27.0-31.0); Mean Corpuscular Volume 88.1 fL (81.0-99.0); Mean Platelet Volume 11.2 fL (7.4-10.4); Platelet Count 76 10^3/uL (130-400); Red Blood Cell Count 2.69 10^6/uL (4.20-5.40); Red Cell Dist. Width 14.6 % (11.5-14.5); White Blood Cell Count 15.1 10^3/uL (4.8-10.8)
--- NOTE | 2024-03-12 14:20 | PTCARENOTE ---
Air removed from femstop at this time as per RETAIL SALES SPECIALIST order. VSS. Pt turned and repositioned. Will monitor.
[2024-03-12 14:41] LABS: Blood Urea Nitrogen 53 mg/dl (7-17); Calcium 8.1 mg/dl (8.4-10.2); Carbon Dioxide 22 mmol/L (22-30); Chloride 98 mmol/L (98-107); Estimated Creatinine Clearance 21 ml/min; Glucose 188 mg/dl (70-99); INR 1.19; Potassium 3.9 mmol/L (3.5-5.1); Sodium 131 mmol/L (135-145); eGFR 30.64
[2024-03-12 14:48] LABS: Hemoglobin 8.7 g/dL (12.0-16.0)
[2024-03-12] MEDS: LIPITOR 10 MG PO (15:57)
--- NOTE | 2024-03-12 16:14 | PTCARENOTE ---
Resting in bed without complaint. VSS. LT groin ecchymosis without significant change s/p fem stop. Linens and gown changed. Pure wick intact. Assessment unchanged from prior.
--- NOTE | 2024-03-12 21:54 | PTCARENOTE ---
Assumed care of patient at 1900. Patient found resting in bed at time of assessment. Patient is AOx4, follows commands appropriately, moves all extremities. Lung sounds are diminished at the bases, patient is on 2L via NC saO2 95%. Heart sounds have
a regular rate and rhythm, patient is vpaced on the monitor HR 60s-70s, patient has trace generalized anasarca throughout with normal palpable pulses. Patient has a newly placed PPM with DDDR settings 60-130. Patient has hypoactive BS throughout
round obese abdomen, patient noted to be incontinent of urine PW maintained. Patient has L upper chest wall incision with aquacell dressing that is CDI, a R groin puncture with 4x4 gauze dressing that is CDI, a L groin puncture SAV and ecchymotic
throughout. Patient is grossly ecchymotic extending from L pubis to L flank. Hematoma is noted in the area extending from L groin to L pubis. No increase in size noted from previous assessment. Patient has no c/o pain at this time. VSS.
[2024-03-13] VITALS (17 sets, daily range): BP systolic 87–140; BP diastolic 44–80; PULSE 62–65; O2SAT 95; BMI 46.1
--- NOTE | 2024-03-13 | PTCARENOTE ---
Patient reassessed. VSS. No c/o pain. Bruising and hematoma remains unchanged. Some new bruising noted on L outer thigh CT NAILING MACHINE OPERATOR notified. Remains V paced on the monitor. Patient is stable.
[2024-03-13 03:58] LABS: Hematocrit 24.3 % (37.0-47.0); Hemoglobin 8.9 g/dL (12.0-16.0); Mean Corp Hgb Conc. 36.6 g/dL (33.0-37.0); Mean Corpuscular Hgb 32.7 pg (27.0-31.0); Mean Corpuscular Volume 89.3 fL (81.0-99.0); Mean Platelet Volume 11.6 fL (7.4-10.4); Platelet Count 84 10^3/uL (130-400); Red Blood Cell Count 2.72 10^6/uL (4.20-5.40); White Blood Cell Count 15.7 10^3/uL (4.8-10.8)
--- NOTE | 2024-03-13 04:18 | W.PN.CT ---
Today's Communication / Plan
-
-No overnight events
-PPM placed 03/10 and TPW in Lt. groin removed then developed large R groin hematoma extending to flank and thigh.
-CT w/o yesterday showing groin hematoma 7.8 cm x 3.5 cm x 6.3 cm, US groin 03/11 no PSA or AV fistula. labs INR 1.22, Retic 5.5, LDH 223, Tbili 0.7
-Hgb fell after resuming Plavix 9.7->8.9->6.6-> 2 U PRBC given. Up to 8.9 this AM (13.7 pre-TAVR)
-Vascular following, holding on CTA unless she decompensates
-BP soft but with the addition of diltiazem. Diltiazem dose reduced to 30 mg TID
-Creat up to 1.9 from 0.9, made at least 550 cc urine +voids in 24 hrs, she was incontinent and UO unable to be measured, purewick placed, down to 1.2 this AM
-Plavix held yesterday, continued on asa
-Continue atorvastatin, furosemide, PPI, Detrol LA held
Assessment / Plan
-
s/p Right trans femoral TAVR with a 26 mm Medtronic Evolut FX device with preballoon valvuloplasty using a 20 mm balloon POD#4
s/p PPM POD#3
-aortic stenosis
-CAD (ABHINAV to RCA)
-Arrhythmia (PAT)
-HTN
-LBBB
-Hyperlipidemia
-spinal stenosis
-arthritis
-melanoma
-PEPITO
-osteoartiritis)
-s/p Appendectomy
-s/p Hysterectomy
-s/p bilateral TKR
-s/p carpal tunnel release
-s/p Tonsilectomy
-Acute blood loss anemia
-groin hematoma
-CHB s/p PPM
Subjective
Procedure
s/p Right trans femoral TAVR with a 26 mm Medtronic Evolut FX device with preballoon valvuloplasty using a [address] Torres on 03/09/24
s/p PPM on 03/10, A+V groin wires pulled developed hematoma R groin requiring transfusion
-
Date of Service: March 13, 2024
Objective Data
-
Lab Results
03/13/24 03:25
PT 15.0 Sec (11.4-14.6) H 03/12/24 14:06
INR 1.19 03/12/24 14:06
APTT 39.3 Sec (23.4-35.0) H 03/12/24 05:12
APTT Cancelled 03/12/24 05:12
Vital Signs
Vital Signs
Temp Pulse Resp BP Pulse Ox
98.5 F 75 20 118/59 97
03/12/24 23:00 03/12/24 23:15 03/12/24 23:00 03/12/24 23:10 03/12/24 23:00
CT Intake/Output/Weight
03/12/24 03/12/24 03/13/24
06:59 18:59 06:59
Intake Total 1590 / 1590
Output Total 150 / 700 1800 / 1800
Balance -150 / -100 -210 / -210
SaO2: 97
Physical Exam
-
General: Awake and Oriented
Cardiovascular: Regular rate & rhythm, No Murmurs and No Rub
Respiratory: Clear and Decreased Breath Sounds
Incision: Clean and Dry
Extremities: Edema +1 and Other (large R groin hematoma extending to the thigh and R flank )
Data Reviewed
-
Lab Results: Results Reviewed
Medications: Active Meds Reviewed
Chest X-Ray: Report Reviewed
ECG: Report Reviewed
[2024-03-13 04:19] LABS: ALT (SGPT) 15 U/L (0-35); AST (SGOT) 21 U/L (14-36); Albumin 3.1 g/dl (3.5-5.0); Alkaline Phosphatase 61 U/L (38-126); Blood Urea Nitrogen 51 mg/dl (7-17); Calcium 8.4 mg/dl (8.4-10.2); Carbon Dioxide 25 mmol/L (22-30); Chloride 101 mmol/L (98-107); Estimated Creatinine Clearance 28 ml/min; Glucose 149 mg/dl (70-99); Potassium 4.2 mmol/L (3.5-5.1); Sodium 133 mmol/L (135-145); Total Protein 5.6 g/dl (6.3-8.2); eGFR 43.27
--- NOTE | 2024-03-13 04:23 | PTCARENOTE ---
Patient reassessed. VSS. Patient with some incontinence of bladder linens changed. Barrier cream applied to buttocks. Remains V paced on the monitor PVCs noted at times. AM labs obtained. Bruising and hematoma remains the same.
[2024-03-13] MEDS: PLAVIX 75 MG PO (09:27)
[2024-03-13] MEDS: VITAMIN B-12 500 MCG PO (09:27)
[2024-03-13] MEDS: LASIX 40 MG IV (09:27)
[2024-03-13] MEDS: OSCAL 500 + D 500 MG PO (09:28)
[2024-03-13] MEDS: LOW STRENGTH ASPIRIN 81 MG PO (09:28)
[2024-03-13] MEDS: FLORASTOR 250 MG PO ×2 (09:28→19:48)
[2024-03-13] MEDS: KCL 20 MEQ PO (09:28)
[2024-03-13] MEDS: PROTONIX 40 MG PO (09:28)
[2024-03-13] MEDS: LASIX PO (09:29)
[2024-03-13] MEDS: VITAMIN C 500 MG PO (09:29)
[2024-03-13] MEDS: CARDIZEM 30 MG PO ×3 (09:29→22:17)
[2024-03-13] MEDS: THERAGRAN 1 TABLET PO (09:29)
[2024-03-13] MEDS: MYCOSTATIN OINTMENT 1 APPLIC TOPICAL ×2 (09:30→19:48)
--- NOTE | 2024-03-13 09:45 | PTCARENOTE ---
Assumed care of patient at 0700. Pt is awake, alert, and oriented. No complaints of pain. Pt 100% V paced with occasional PVC's. PPM set to DDDR 60-130. HR 70's. BP 132/65 MAP 70. Pulse oximetry 95% on room air. Pt tolerating PO diet. Purewick in
place collecting yellow urine. Left groin, thigh, and lower abdomen ecchymotic. Pt with known left groin hematoma. Left groin HEAD START ASSISTANT TEACHER, right groin dressing CDI. Left upper chest Aquacel dressing CDI. Pt currently resting comfortably in bed with call
dwyer within reach.
--- NOTE | 2024-03-13 11:29 | CM ---
Chart reviewed. Patient with assistance of ADLS, lives with her son and DIL in a in law suite, 1st floor set up, ramp entrance, ambulates with a RW and also has a bedside commode. Patient is current with [facility]. PT/OT recommending SNF. I spoke
with the patient's son Telly and he would prefer his mom to come home. He said there is always someone available at home to assist. If she continues to be a 2 person assist and will need to be SNF he would prefer her to go to [facility],
[facility], or [facility]. Plan is for the patient to return home with [facility] vs SNF. CM to follow
--- NOTE | 2024-03-13 13:08 | PTCARENOTE ---
Pt worked with PT/OT. OOB to chair x2 assist. No changes in assessment. Pt remains V paced with HR 70's. BP 124/55 MAP 75. Pulse oximetry 94% on room air.
--- NOTE | 2024-03-13 14:46 | W.PN.CARDCBS ---
Addendum entered and electronically signed by Agustin Zheng MD 03/13/24 17:28:
Attending addendum: Patient seen and examined. PA note reviewed and findings confirmed by me. Post procedure left groin hematoma. Clopidogrel was placed on hold. Recent coronary stent approximately 1 month ago. Repeat ultrasound with no
pseudoaneurysm. 2 units of packed red blood cells have been transfused. Will continue to follow.
Original Note:
Today's Communication / Plan
-
Continue to follow hemoglobin
Paced on telemetry
PT/OT
Impression / Plan
-
PCP: Dr. Christophe Mejia
Cardiology: ATC, Dr. Spangler
Impression:
Severe s/p 26 mm Evolut Pro+ TAVR 03/09/2024
CAD s/p 4 mm Xience to RCA 02/02/24
Complete heart block post TAVR
s/p Medtronic DC PPM 03/10/2024
L groin hematoma
Chronic HFpEF
Hypertension
Hyperlipidemia
CT of chest with right upper lobe mass
Obesity/spinal stenosis
Paroxysmal atrial tachycardia/left bundle branch
Sick sinus syndrome
Osteoarthritis
Diverticular disease
LHC 02/02/2024: PCI of RCA, LVEDP 27, mean gradient 59 mmHg
Echo 01/12/2024: EF 55 to 60%, severe aortic stenosis with a mean gradient of 54.
Echo 03/10/2024: EF 60-65%, no RWMA, s/p TAVR with peak/mean gradients 19/9 mmHg, mild paravalvular AI
Plan:
-Known severe and is now s/p TAVR 03/09/2024.
-s/p dual-chamber pacemaker on 03/10/2024 with appropriate device function.
-L groin hematoma noted after removal of L femoral venous sheath and temp wire. Confirmed by CT 03/12. No pseudoaneurysm or AV fistula on US 03/12. Vascular surgery following.
-Hgb overall stable at 8.9. Required 2 units PRBCs 03/12/24.
-Continue aspirin. Plavix was held due to anemia, however now resumed on 03/13. Will continue to follow.
-Appears euvolemic. Lasix not given the past two days due to INGE. Creat down to 1.2 03/13. Continue to follow.
-No arrhythmias noted on review of telemetry. BP and HR stable. Continue current medications.
-Continue lipitor.
-Continue PT/OT
Progress Note - Grant Officer
Subjective
Date of Service: March 13, 2024
Overall no complaints.
Objective
Labs:
03/13/24 03:25
03/13/24 03:25
Labs
Hgb 8.9 g/dL (12.0-16.0) L 03/13/24 03:25
Hct 24.3 % (37.0-47.0) L 03/13/24 03:25
Plt Count 84 10^3/uL (130-400) L 03/13/24 03:25
PT 15.0 Sec (11.4-14.6) H 03/12/24 14:06
INR 1.19 03/12/24 14:06
APTT 39.3 Sec (23.4-35.0) H 03/12/24 05:12
APTT Cancelled 03/12/24 05:12
Sodium 133 mmol/L (135-145) L 03/13/24 03:25
Potassium 4.2 mmol/L (3.5-5.1) 03/13/24 03:25
BUN 51 mg/dl (7-17) H 03/13/24 03:25
Creatinine 1.2 mg/dL (0.6-1.0) H 03/13/24 03:25
Glucose 149 mg/dl (70-99) H 03/13/24 03:25
Vital Signs and I&O:
Vital Signs
Temp Pulse Resp BP Pulse Ox
98.8 F 69 20 124/55 94
03/13/24 12:59 03/13/24 13:00 03/13/24 12:59 03/13/24 13:00 03/13/24 13:00
Vital Signs
Temp Pulse Resp BP Pulse Ox
98.8 F 69 20 124/55 94
03/13/24 12:59 03/13/24 13:00 03/13/24 12:59 03/13/24 13:00 03/13/24 13:00
Intake & Output
03/11/24 03/12/24 03/13/24 03/14/24
06:59 06:59 06:59 06:59
Intake Total 130 / 130 600 / 600 1590 / 2070 480 / 480
Output Total 800 / 800 700 / 700 1800 / 2500 1150 / 1150
Balance -670 / -670 -100 / -100 -210 / -430 -670 / -670
Physical Exam
Physical Exam
GEN: No distress, awake, alert, oriented x3
HEENT: supple, anicteric, mmm
LUNGS: CTA b/l, no wheezes/rales
CV: Reg, S1/S2, no murmur
EXT: No clubbing, cyanosis, or edema
NEURO: Gross non-focal
SKIN: Warm, dry, no rash
[2024-03-13] MEDS: FERRLECIT 110 MG IV (15:02)
[2024-03-13] MEDS: LIPITOR 10 MG PO (17:19)
--- NOTE | 2024-03-13 17:21 | PTCARENOTE ---
Pt with no changes in assessment. Pt remains V paced with HR 70's. BP 124/55 MAP 75. Pulse oximetry 93% on room air. Hematoma appears unchanged.
[2024-03-13 18:24] LABS: Haptoglobin 166 mg/dL (30-200)
--- NOTE | 2024-03-13 20:10 | PTCARENOTE ---
Assumed care of pt from sarah RN. Walking rounds completed. Pt AAOx3. Denies pain at this time. Pt is V-paced on the tele monitor w/ occasional PVC's. HR 70s. Permanent pacemaker set to DDDR 60-130. BP 129/54. MAP 75. Palpable pulses throughout.
Pt on RA. POX 94%. Pt encouraged to practice IS. Pt has pure-wick catheter in place. Pt voiding yellow urine. Left groin puncture open to air. Significant bruising noted in the left groin extending around left thigh and left lower abdomen d/t left
groin hematoma. Right groin puncture site dressing CDI. Right groin slightly ecchymotic. Left upper chest PMM site Aquacel CDI. See worklist for full assessment and interventions. Pt resting comfortably in bed at this time. Call dwyer within reach.
[2024-03-13] MEDS: DESENEX/MITRAZOL/ZEASORB 1 APPLIC TOPICAL (22:26)
[2024-03-14] VITALS (14 sets, daily range): BP systolic 96–140; BP diastolic 52–74; PULSE 71; O2SAT 96; BMI 46.4
--- NOTE | 2024-03-14 00:39 | PTCARENOTE ---
Pt reassessed. Remains V-paced on the tele monitor. HR 70s. BP stable. Pt on RA. POX 93-95%. Pure-wick catheter in place. Pt voiding yellow urine. Left groin hematoma bruising unchanged. Pt repositioned in bed. No c/o pain. Call dwyer within reach.
--- NOTE | 2024-03-14 03:54 | W.PN.CT ---
Addendum entered and electronically signed by Hesham Torres MD 03/14/24 14:09:
I saw and examined the patient.
The PA's note was reviewed and I agree with the note.
Comment:
Will need SNF. HH trending appropriately.
Original Note:
Today's Communication / Plan
-
Plan:
-No major issues overnight. Hemodynamically and neurologically intact
-Left groin hematoma is stable, h/h is stable @ 9.6/26.6 up from 8.9/24.3 yesterday
-PPM site is C/D/I without hematoma or signs of infection
-Platelets is normalizing, 76k-> 84k-> 122k. Currently on ASA, Plavix-resumed yesterday 03/13
-Cont. current meds (ASA, Plavix, Lipitor, Lasix, PPI, Detrol LA is on hold)
-For repeat echo today
-OOB into chair/Ambulate/PT-OT following
-Home vs SNF later today vs tomorrow
Assessment / Plan
-
Assessment:
-s/p Right trans femoral TAVR with a 26 mm Medtronic Evolut FX device with preballoon valvuloplasty using a 20 mm balloon, by Dr. Torres/Marce, 03/09, POD#5
-s/p PPM POD, 03/09
-aortic stenosis
-CAD (ABHINAV to RCA)
-Arrhythmia (PAT)
-HTN
-LBBB
-Hyperlipidemia
-spinal stenosis
-arthritis
-melanoma
-PEPITO
-osteoarthritis
-s/p Appendectomy
-s/p Hysterectomy
-s/p bilateral TKR
-s/p carpal tunnel release
-s/p Tonsillectomy
-Acute blood loss anemia (transfused 2u PRBC's)
-Acute postop thrombocytopenia
-Left groin hematoma
-CHB s/p PPM
Discussed patient care with: Cardiology, Nursing, Respiratory Therapy, Pharmacy and Care Team
Subjective
Procedure
s/p Right trans femoral TAVR with a 26 mm Medtronic Evolut FX device with preballoon valvuloplasty using a [address] Torres on 03/09/24
s/p PPM on 03/10, A+V groin wires pulled developed hematoma R groin requiring transfusion
-
Date of Service: March 14, 2024
Pt c/o mild incisional pain, otherwise feels well
Objective Data
-
PT 15.0 Sec (11.4-14.6) H 03/12/24 14:06
INR 1.19 03/12/24 14:06
APTT 39.3 Sec (23.4-35.0) H 03/12/24 05:12
APTT Cancelled 03/12/24 05:12
Vital Signs
Vital Signs
Temp Pulse Resp BP Pulse Ox
98.3 F 68 16 138/52 96
03/14/24 00:00 03/14/24 02:30 03/14/24 00:00 03/14/24 02:00 03/14/24 02:30
CT Intake/Output/Weight
03/13/24 03/13/24 03/14/24
06:59 18:59 06:59
Intake Total 480 / 480
Output Total 170 / 2049 350 / 2050
Balance -1220 / -1570 -350 / -1570
SaO2: 96 (RA)
Physical Exam
-
General: Awake, Oriented and AOx3
Cardiovascular: Regular rate & rhythm, No Murmurs, No Rub and No Gallop
Respiratory: Decreased Breath Sounds
Sternum: Stable
Extremities: Other (+trace edema)
Data Reviewed
-
Lab Results: Results Reviewed
Medications: Active Meds Reviewed
Chest X-Ray: Report Reviewed and Image Reviewed
ECG: Report Reviewed and Image Reviewed
[2024-03-14 04:19] LABS: Hematocrit 26.6 % (37.0-47.0); Hemoglobin 9.6 g/dL (12.0-16.0); Mean Corp Hgb Conc. 36.1 g/dL (33.0-37.0); Mean Corpuscular Hgb 33.1 pg (27.0-31.0); Mean Corpuscular Volume 91.7 fL (81.0-99.0); Platelet Count 122 10^3/uL (130-400); Red Cell Dist. Width 14.6 % (11.5-14.5); White Blood Cell Count 18.4 10^3/uL (4.8-10.8)
--- NOTE | 2024-03-14 04:21 | PTCARENOTE ---
Pt reassessed. V-paced on the tele monitor. HR 70s. BP stable. RA. POX 92-94%. Left groin bruising unchanged from previous. Pt repositioned in bed. Pure-wick catheter changed. Labs drawn and sent. No c/o pain. Call dwyer within reach.
[2024-03-14 04:39] LABS: Blood Urea Nitrogen 38 mg/dl (7-17); Calcium 8.7 mg/dl (8.4-10.2); Carbon Dioxide 29 mmol/L (22-30); Chloride 99 mmol/L (98-107); Estimated Creatinine Clearance 38 ml/min; Glucose 133 mg/dl (70-99); Magnesium 1.7 mg/dl (1.6-2.3); Potassium 4.5 mmol/L (3.5-5.1); Sodium 134 mmol/L (135-145); eGFR > 60.00
--- NOTE | 2024-03-14 08:00 | PTCARENOTE ---
Assumed care of patient. Walking rounds complete with previous RN. Pt assessed while she was lying in bed. Pt alert and oriented x4. Pt denies pain, shortness of breath, and nausea. BLAIR with equal strength throughout. PERRLA 3mm brisk. No facial
droop or tongue deviation. Sensation intact. V-paced via PPM with occasional PVCs with rates in the 70s. BP stable 124/70. Heart tones audible. Bilateral radial and DP pulses palpable. No edema noted. POX 94% on RA. Lungs diminished in the bases. IS
encouraged-1000ml achieved. No cough noted. Dyspnea noted when lying flat. Abdomen obese, round. +BS. Purwick in place, but pt incontinent, large amount of yellow urine. Left upper chest wall PPM site covered with Aquacel-CDI. Right groin dressing
CDI. Left groin ecchymosis remains within outline. PIV x2 intact. See MAR for medication administration. See worklist for complete nursing assessment. Plan of care reviewed and patient in agreement.
[2024-03-14] MEDS: FLUSH (NSS) 1 FLUSH IV (08:05)
[2024-03-14] MEDS: MAGNESIUM OXIDE 500 MG PO (08:05)
[2024-03-14] MEDS: PROTONIX 40 MG PO (08:06)
[2024-03-14] MEDS: CARDIZEM 30 MG PO (08:06)
[2024-03-14] MEDS: KCL 20 MEQ PO (08:06)
[2024-03-14] MEDS: VITAMIN C 500 MG PO (08:07)
[2024-03-14] MEDS: PLAVIX 75 MG PO (08:07)
[2024-03-14] MEDS: OSCAL 500 + D 500 MG PO (08:07)
[2024-03-14] MEDS: LOW STRENGTH ASPIRIN 81 MG PO (08:07)
[2024-03-14] MEDS: FLORASTOR 250 MG PO (08:07)
[2024-03-14] MEDS: VITAMIN B-12 500 MCG PO (08:07)
[2024-03-14] MEDS: LASIX 40 MG PO ×2 (08:07→10:24)
[2024-03-14] MEDS: THERAGRAN 1 TABLET PO (08:08)
[2024-03-14] MEDS: MYCOSTATIN OINTMENT 1 APPLIC TOPICAL (08:09)
[2024-03-14] MEDS: MILK OF MAGNESIA 30 ML PO (08:28)
--- NOTE | 2024-03-14 09:41 | W.DCSUMMARY ---
Discharge Summary
Discharge Data
Date of Admission: 03/09/24
Date of Discharge: 03/14/24
Total time spent discharging patient (in min): 35
-
Pending Results: Yes
Hospital Course
Primary care physician:
Dr. Christophe Mejia
Outpatient shop mechanic:
Dr. Yusef Spangler
Inpatient consultants:
[facility], vascular
Procedures:
1. Right trans femoral TAVR with a 26 mm Medtronic Evolut FX device with preballoon valvuloplasty using a 20 mm balloon
Primary Diagnosis:
1. Severe aortic stenosis
Secondary Diagnoses:
1. Acute on chronic systolic and diastolic congestive heart failure, LVEDP pre-TAVR was 30 mmHg
2. Hypertension
3. Hyperlipidemia
4. Left bundle branch block, pre-existing
5. Gastroesophageal reflex disease
6. Spinal stenosis
7. Morbidly obese with a BMI of 44
8. Acute blood loss anemia
HPI: 88-year-old female with severe aortic stenosis. Symptomatic. CT-TAVR protocol revealed acceptable anatomy for a self-expanding TAVR valve. She presented electively on 03/09 for a TAVR with Dr. Torres
Hospital course: patient was electively admitted on 03/09 for a transfemoral transcatheter aortic valve replacement. Postoperatively she developed complete heart block where transvenous wire was placed. On postop day 1 patient continued to be in
complete heart block so a Medtronic pacemaker was placed. Postoperatively her hemoglobin was noted to drop from 11.7-9.6. Ultrasound found a left femoral hematoma. On 03/11 postoperative day #2, patient's left groin continued to be ecchymotic and
tender hemoglobin continued to downtrend to 8.9. Patient's creatinine bumped from 1.7-1.8. Repeat ultrasound was performed to rule out pseudoaneurysm. She was resumed on her diltiazem 60 mg 3 times daily for sinus tachycardia and Plavix was held.
On 03/12 postoperative day #3 hemoglobin dropped to 6.3. Patient received 2 units of packed red blood cells followed by 40 mg of IV Lasix. CT of the chest abdomen pelvis showed a large hematoma with no retroperitoneal bleed. FemoStop was placed
to hold manual pressure creatinine continued to uptrend to 1.9 after the 2 units of blood patient's creatinine down trended to 1.6. On 7/ postoperative day #4 patient hemoglobin was stable at 8.9. She was started on IV iron supplementation.
Platelets continue to improve and Plavix was resumed. On 7/ postoperative day #5, patient's hemoglobin remained stable at 9.6. Repeat echocardiogram was performed it showed a NML LVEF and 26 Medtronic Evolut transcatheter aortic valve replacement
with Peak/mean gradients across the aortic valve are 20/10 mmHg respectively. Mild paravalvular aortic regurgitation. She was deemed stable for discharge to SNF today.
Home medication changes:
see below
Discharge Plan
-
Patient Disposition: [facility]/SNF
Discharge Diagnosis/Procedures: TF TAVR (03/09), Pacemaker implant (03/10), groin hematoma
Condition: Fair
Diet: Low Fat, Low Cholesterol and 2 Gram Sodium
Activity: As tolerated
Driving Restrictions: No driving for 1 week
Bathing Restrictions: OK to Shower
Others Tests: Your 30-day echocardiogram is scheduled for: 04/06/2024 @ 10:[address] Spangler's office.
Other Services: Cardiac Rehab
Wound Care: No lotions, cream, powders to groin sites
Specialty Instructions: Weigh Daily- Call MD for wt gain/loss 3 lbs overnight/5 lbs in 1 week
Activity Restrictions/Additional Instructions:
Please call Cardiac Rehab when ready. (no longer needing skilled therapy/nursing)
[employer]: [phone]
Stand Alone Forms: DC Inst - Implanted Device
Referrals:
Ace [facility] [Outside]
(Report [phone]
)
Christophe Mejia, [Family Provider] -
Wiliam Gilman MD [Non-Admitting Privileges] - 04/05/24 10:30 am
Additional Discharge Medication Instructions: Please complete Left chest wound check 03/17/24.
Prescriptions:
New
diltiazem HCl 120 mg capsule,extended release 24hr
120 mg PO DAILY Qty: 30 0RF
Continued
multivitamin Tablet
1 tab PO DAILY
calcium carbonate-vitamin D3 600 mg-5 mcg (200 unit) Tablet
1 tab PO DAILY
ascorbic acid (vitamin C) [Vitamin C] 500 mg Tablet
500 mg PO DAILY
cranberry fruit concentrate 250 mg Tablet,Chewable
250 mg PO TID
mecobalamin (vitamin B12) 500 mcg Tablet,Chewable
500 mcg PO DAILY
omega 0-ouo-jtm-fish oil [id number] mg Capsule
1 cap PO DAILY
Gemtesa 75 mg Tablet
75 mg PO DAILY
acetaminophen 500 mg Tablet
1,000 mg PO Q6H PRN (Reason: mild pain)
atorvastatin 10 mg Tablet
10 mg PO QPM Qty: 90 5RF
clopidogrel 75 mg Tablet
75 mg PO DAILY Qty: 90 5RF
aspirin [Children's Aspirin] 81 mg Tablet,Chewable
81 mg PO DAILY Qty: 1 0RF
olive leaf extract
250 mg PO DAILY
oregano oil 1,500 mg Capsule
1,500 mg PO DAILY
pantoprazole 40 mg Tablet,Delayed Release (Dr/Ec)
40 mg PO DAILY Qty: 90 5RF
psyllium husk 0.52 gram Capsule
0.52 g PO DAILY Qty: 0 0RF
Saccharomyces boulardii 250 mg Capsule
250 mg PO BID Qty: 0 0RF
furosemide 40 mg Tablet
40 mg PO DAILY Qty: 30 0RF
potassium chloride 20 mEq Tablet,Er Particles/Crystals
20 meq PO DAILY Qty: 30 0RF
Discontinued
diltiazem HCl 180 mg Capsule,Extended Release 24hr
180 mg PO DAILY
Discharge Orders:
Discharge Patient (As Directed); Ordered 03/14/24
Ordered By: Kellie Dowd
Care Plan Goals
Care Plan Goals:
Problem: Readiness for enhanced knowledge related to diagnosis and treatment plan
Goal: Understand your diagnosis and treatment plan needs, including medications if applicable.
Instructions: Know your diagnosis, underlying causes and treatment plan options, including medications if applicable. Consult with your health care team to learn about your diagnosis and treatment plan, including medications if applicable.
Discharge Date and Time
Print Language: TURKMEN
--- NOTE | 2024-03-14 10:14 | W.PN.CARDCBS ---
Addendum entered and electronically signed by Helena Albarado MD 03/14/24 12:12:
I saw and examined the patient.
The Certified Recreational Therapist's note was reviewed and I agree with the note.
Comment: Overall patient is doing well. She denies any chest discomfort. Ongoing discomfort at the left groin site but better than yesterday. Has been out of bed into a chair but has not ambulated the halls yet. Physical therapy has been working
with patient and recommending [facility] facility upon discharge.
Vital signs and lab work reviewed. On exam patient is an older female, frail, in no acute distress, awake and oriented x 3, normal S1 and S2, 2 out of 6 systolic ejection murmur which is early to mid peaking, lungs are clear to auscultation
anteriorly, abdomen is obese but otherwise soft, nontender and nondistended, significant pelvic ecchymosis with tenderness on palpation over the left groin without evidence of a bruit.
Recommendations:
1. Patient with severe aortic stenosis status post a 26 mm Evolut FX TAVR on March 09, 2024 with procedure complicated by complete heart block dual-chamber pacemaker which was placed on March 10, 2024 and acute blood loss anemia secondary to left
groin hematoma now with stable hemoglobins.
2. Device was checked today with appropriate device function.
3. 2 post TAVR echocardiograms have been stable with transaortic mean gradient of 10 mmHg and low normal LV systolic function.
4. Continued post TAVR supportive care. Encourage incentive spirometry. Out of bed into a chair and ambulation with ongoing therapy with PT/OT.
5. Discharge planning with likely plan to SNF.
6. Outpatient cardiology follow-up will be arranged.
Helena Albarado MD, [facility], [facility]
Original Note:
Today's Communication / Plan
-
device check today with appropriate device function
hgb/plts improving
repeat echo today
for SNF on DC
OP cardiac follow up arranged
Impression / Plan
-
PCP: Dr. Christophe Mejia
Cardiology: ATC, Dr. Spangler
Impression:
Severe s/p 26 mm Evolut Pro+ TAVR 03/09/2024
CAD s/p 4 mm Xience to RCA 02/02/24
Complete heart block post TAVR
s/p Medtronic DC PPM 03/10/2024
L groin hematoma
Chronic HFpEF
Hypertension
Hyperlipidemia
CT of chest with right upper lobe mass
Obesity/spinal stenosis
Paroxysmal atrial tachycardia/left bundle branch
Sick sinus syndrome
Osteoarthritis
Diverticular disease
LHC 02/02/2024: PCI of RCA, LVEDP 27, mean gradient 59 mmHg
Echo 01/12/2024: EF 55 to 60%, severe aortic stenosis with a mean gradient of 54.
Echo 03/10/2024: EF 60-65%, no RWMA, s/p TAVR with peak/mean gradients 19/9 mmHg, mild paravalvular AI
Plan:
-s/p TAVR 03/09/2024.
-s/p dual-chamber pacemaker on 03/10/2024 for complete heart block. site c/d/i
-appears to be in mostly a sensed v paced rhythm on review of tele. device check today completed with appropriate device function.
-L groin hematoma noted after removal of L femoral venous sheath and temp wire. Confirmed by CT 03/12. No pseudoaneurysm or AV fistula on US 03/12. Vascular surgery following.
-Hgb up to 9.6. Required 2 units PRBCs 03/12/24. plts also improving. Continue aspirin. Plavix was held due to anemia, however resumed 03/13.
-Appears euvolemic. Cr continues to improve, 0.9 on 03/14. now back on po lasix 40mg daily. BMP in 1 week upon DC
-repeat echo today, ordered by CT surg. echo from 03/10 with results as above
-Continue lipitor.
-Continue PT/OT. plan for SNF on DC
-OP cardiac follow up arranged. will discuss wound check at [facility] with CM.
-d/w nursing
Progress Note - Clinical Statistical Programmer
Subjective
Date of Service: March 14, 2024
denies groin pain, CP, SOB.
Objective
Labs:
03/14/24 03:53
03/14/24 03:53
Labs
Hgb 9.6 g/dL (12.0-16.0) L 03/14/24 03:53
Hct 26.6 % (37.0-47.0) L 03/14/24 03:53
Plt Count 122 10^3/uL (130-400) L D 03/14/24 03:53
PT 15.0 Sec (11.4-14.6) H 03/12/24 14:06
INR 1.19 03/12/24 14:06
APTT 39.3 Sec (23.4-35.0) H 03/12/24 05:12
APTT Cancelled 03/12/24 05:12
Sodium 134 mmol/L (135-145) L 03/14/24 03:53
Potassium 4.5 mmol/L (3.5-5.1) 03/14/24 03:53
BUN 38 mg/dl (7-17) H 03/14/24 03:53
Creatinine 0.9 mg/dL (0.6-1.0) 03/14/24 03:53
Glucose 133 mg/dl (70-99) H 03/14/24 03:53
Vital Signs and I&O:
Vital Signs
Temp Pulse Resp BP Pulse Ox
98.9 F 81 16 124/70 94
03/14/24 08:00 03/14/24 09:30 03/14/24 08:00 03/14/24 08:00 03/14/24 09:30
Vital Signs
Temp Pulse Resp BP Pulse Ox
98.9 F 81 16 124/70 94
03/14/24 08:00 03/14/24 09:30 03/14/24 08:00 03/14/24 08:00 03/14/24 09:30
Intake & Output
03/12/24 03/13/24 03/14/24 03/15/24
07:59 07:59 07:59 07:59
Intake Total 480 / 720 2070 / 2070 240 / 240
Output Total 700 / 700 2500 / 2625 1450 / 1450
Balance -220 / 20 -430 / -555 -1450 / -1210 240 / 240
Physical Exam
Physical Exam
GEN: No distress, awake, alert, oriented x3
HEENT: supple, anicteric, mmm, eomi
LUNGS: CTA B/L, no wheezes/rales
CV: Reg, S1/S2, 1/6 syst LSB
ABD: soft, BS+, NT/ND
EXT: No cyanosis, clubbing, edema
NEURO: Gross non-focal
SKIN: Warm, pink, dry. No rash. L chest site c/d/i. B/L groin sites with ecchymoses, soft, mild tenderness to palpation
--- NOTE | 2024-03-14 11:29 | CM ---
Patient and son are agreeable to transfer to SNF. Patient accepted to [facility]. Insurance authorization approved [facility], auth # [id number] 7 days, NRD 03/20/24 with report called to . Patient approved 1 BLS
transport with [facility] expires 03/18.
[2024-03-14] MEDS: DULCOLAX 10 MG RECTAL (11:53)
--- NOTE | 2024-03-14 12:00 | PTCARENOTE ---
Pt reassessed. VSS. Groin unchanged. Suppository given for No BM. pt tolerated. Purwick removed, urinated in the bedside commode. No other acute changes from previous assessment.
[2024-03-14] MEDS: FERRLECIT 110 MG IV (13:41)
[2024-03-14] MEDS: CARDIZEM CD 120 MG PO (15:33)
--- NOTE | 2024-03-14 16:00 | PTCARENOTE ---
Pt stable prior to discharge/transfer to [facility]. Tele pack and PIVx2 removed. All paperwork and belongings sent with patient. Report called to Uzma at [facility].
== END 2024-03-14 16:36 | DRG 266 ==
LOC: CVICU 09:25
PROVIDERS: Internal Medicine Cardiovascular Disease; Nurse Practitioner; Nurse Practitioner Adult Health; Physician Assistant Medical; ADMITTING PHYSICIAN Thoracic Surgery (Cardiothoracic Vascular Surgery); FAMILY PHYSICIAN Family Medicine; OTHER PHYSICIAN Surgery; OTHER PHYSICIAN Surgery Vascular Surgery
PROC: 02RF38Z Replacement of Aortic Valve with Zooplastic Tissue, Percutaneous Approach (ICD-10-PCS; 2024-03-09)
PROC: 02HK3JZ Insertion of Pacemaker Lead into Right Ventricle, Percutaneous Approach (ICD-10-PCS; 2024-03-10)
PROC: 02H63JZ Insertion of Pacemaker Lead into Right Atrium, Percutaneous Approach (ICD-10-PCS; 2024-03-10)
PROC: 0JH606Z Insertion of Pacemaker, Dual Chamber into Chest Subcutaneous Tissue and Fascia, Open Approach (ICD-10-PCS; 2024-03-10)
PROC: 30233N1 Transfusion of Nonautologous Red Blood Cells into Peripheral Vein, Percutaneous Approach (ICD-10-PCS; 2024-03-12)
DX: I35.0 Nonrheumatic aortic (valve) stenosis (principal); I50.43 Acute on chronic combined systolic (congestive) and diastolic (congestive) heart failure; Z68.41 Body mass index [BMI] 40.0-44.9, adult; N17.9 Acute kidney failure, unspecified; I97.190 Other postprocedural cardiac functional disturbances following cardiac surgery; I44.2 Atrioventricular block, complete; D62 Acute posthemorrhagic anemia; L76.32 Postprocedural hematoma of skin and subcutaneous tissue following other procedure; I11.0 Hypertensive heart disease with heart failure; I25.10 Atherosclerotic heart disease of native coronary artery without angina pectoris; I44.7 Left bundle-branch block, unspecified; E78.5 Hyperlipidemia, unspecified; M19.90 Unspecified osteoarthritis, unspecified site; G47.33 Obstructive sleep apnea (adult) (pediatric); E66.01 Morbid (severe) obesity due to excess calories; Y83.2 Surgical operation with anastomosis, bypass or graft as the cause of abnormal reaction of the patient, or of later complication, without mention of misadventure at the time of the procedure; M48.00 Spinal stenosis, site unspecified; I49.5 Sick sinus syndrome; R00.1 Bradycardia, unspecified; D69.59 Other secondary thrombocytopenia; Z79.01 Long term (current) use of anticoagulants; Z79.02 Long term (current) use of antithrombotics/antiplatelets; Z79.899 Other long term (current) drug therapy; Z95.5 Presence of coronary angioplasty implant and graft
CPT/HCPCS: 93308; 33208; 33361; 36415; 71045; 71046; 71250; 74176; 80048; 80053; 81003; 81015; 82247; 82248; 83010; 83036; 83615; 83735; 83880; 85014; 85018; 85025; 85027; 85045; 85347; 85610; 85730; 86850; 86870; 86900; 86901; 86905; 86920; 86922; 87070; 87086; 87147; 93005; 93306; 93321; 93325; 93926; 97163; 97167; 97530; 97535; C1726; C1760; C1769; C1785; C1887; C1892; C1894; C1898; J2916; P9016; Q9967